=== PATIENT | male | born 1975 | race Caucasian/White ===

== ENCOUNTER → 2017-05-24 09:14 | Outpatient (CLI) | payer BC, SELFPAY ==
[2017-05-24 10:38] LABS: Microalbumin,Random Urine 12.4 mg/L (NO RANGE EST.); Microalbumin:Creatinine Ratio 7.9 mg/g CRE (<30 mg/g CRE)
[2017-05-24 11:07] LABS: Anion Gap 8 (5-15); BUN 11 mg/dL (7-18); BUN/Creat Ratio 16.9 RATIO (10-20); Calcium,Total 8.9 mg/dL (8.5-10.1); Chloride 101 mmol/L (98-107); Cholesterol 158 mg/dL (200); Creatinine, Serum 0.65 mg/dL (0.70-1.30); EST Glomerular Filtration Rate 144 mL/min (>60); Est Glom Filt Rate - Afr Amer 174 mL/min (>60); Glucose 154 mg/dL (74-106); High Density Lipoprotein 43 mg/dL; Potassium 3.9 mmol/L (3.5-5.1); Sodium Level 138 mmol/L (136-145); Thyroid Stim Hormone (TSH) 1.16 uIU/mL (0.358-3.74); Triglycerides 77 mg/dL; Very Low Density Lipoprotein 15 mg/dL (5-40)
== END ==
PROVIDERS: Family Provider Family Medicine; PCP Family Medicine; Visit Provider Family Medicine
DX: E11.9 Type 2 diabetes mellitus without complications (principal)
CPT/HCPCS: 36415; 80048; 80061; 82043; 82570; 84443

== ENCOUNTER → 2017-12-27 09:09 | Outpatient (CLI) | payer BC, SELFPAY ==
[2017-12-27 11:16] LABS: Microalbumin,Random Urine 12.8 mg/L (NO RANGE EST.); Microalbumin:Creatinine Ratio 8.1 mg/g CRE (<30 mg/g CRE)
[2017-12-27 11:21] LABS: AST(SGOT) 16 U/L (15-37); Alanine Aminotransfer ALT/SGPT 40 U/L (16-61); Albumin, Serum 3.9 g/dL (3.2-5.0); Alkaline Phosphatase 82 U/L (45-117); Anion Gap 9 (5-15); BUN 11 mg/dL (7-18); Bilirubin, Direct 0.11 mg/dL (0.00-0.30); Calcium,Total 8.7 mg/dL (8.5-10.1); Chloride 103 mmol/L (98-107); Cholesterol 182 mg/dL (200); Creatinine, Serum 0.73 mg/dL (0.70-1.30); EST Glomerular Filtration Rate 125 mL/min (>60); Est Glom Filt Rate - Afr Amer 151 mL/min (>60); Globulin 3.9 g/dL (2.2-4.2); Glucose 157 mg/dL (74-106); High Density Lipoprotein 42 mg/dL; Potassium 4.6 mmol/L (3.5-5.1); Protein, Total 7.8 g/dL (6.4-8.2); Sodium Level 139 mmol/L (136-145); Triglycerides 111 mg/dL; Very Low Density Lipoprotein 22 mg/dL (5-40)
== END ==
PROVIDERS: Family Provider Family Medicine; PCP Family Medicine; Visit Provider Family Medicine
DX: E11.9 Type 2 diabetes mellitus without complications (principal)
CPT/HCPCS: 36415; 80048; 80061; 80076; 82043; 82570

== ENCOUNTER 2018-06-27 09:18 | Day surgery (SDC) | payer OTHER, SELFPAY ==
[2018-06-23 09:13] VITALS: BMI 31.0
[2018-06-27 09:33] VITALS: BP 143/86; PULSE 88; RESP 18; TEMP 36.8; O2SAT 100; BMI 30.8
[2018-06-27 09:41] LABS: Bedside Glucose 173 mg/dL (70-110)
[2018-06-27 11:18] VITALS: BP 108/67; BP 143/96; PULSE 77; RESP 16; TEMP 36.1; O2SAT 96
--- NOTE | 2018-06-27 11:18 | OP.ENDO_ITS ---
06/27/2018 Catarino Sanchez MD [address] [id number] Re : Colonoscopy procedure for Benito Diaz Dear Dr. Sanchez This procedure was performed on Wednesday, June 27, 2018. My impressions and recommendations are as follows: Impressions : - The entire examined colon is normal on direct and retroflexion views. - No specimens collected. Recommendations : - Discharge patient to home. - Resume previous diet. - Continue present medications. - Repeat colonoscopy in 5 years for screening purposes. My findings are described in the full procedure note, which is enclosed. If I can be of further assistance, please feel free to contact me at Doctor phone number(s): , Work: . Sincerely, Markell Albert MD 06/27/2018 11:18:18 AM This report has been signed electronically.
[2018-06-27 11:25] VITALS: BP 114/78; BP 143/96; PULSE 78; RESP 16; O2SAT 97
[2018-06-27 11:30] VITALS: BP 118/76; BP 143/96; PULSE 75; RESP 16; O2SAT 98
[2018-06-27 11:32] VITALS: BP 117/83; BP 143/96; PULSE 74; RESP 16; TEMP 36.4; O2SAT 97
[2018-06-27 11:44] VITALS: BP 143/96
== END 2018-06-27 11:49 | disposition home or self-care (01) ==
LOC: EN 09:18 → AC 09:19
PROVIDERS: Family Provider Family Medicine; PCP Family Medicine; Referring Provider Surgery; Visit Provider Surgery
PROC: 0DJD8ZZ Inspection of Lower Intestinal Tract, Via Natural or Artificial Opening Endoscopic (ICD-10-PCS; CPT 45378; principal; 2018-06-27 10:25)
DX: Z80.0 Family history of malignant neoplasm of digestive organs (principal); E11.9 Type 2 diabetes mellitus without complications; F32.9 Major depressive disorder, single episode, unspecified; I10 Essential (primary) hypertension; K21.9 Gastro-esophageal reflux disease without esophagitis; Z79.899 Other long term (current) drug therapy; Z79.84 Long term (current) use of oral hypoglycemic drugs
CPT/HCPCS: 45378; 82962; J7120

== ENCOUNTER → 2019-08-21 15:30 | Outpatient (CLI) | payer OTHER, SELFPAY ==
[2019-08-21 18:14] LABS: Anion Gap 8 (5-15); BUN 11 mg/dL (7-18); Calcium,Total 9.1 mg/dL (8.5-10.1); Chloride 106 mmol/L (98-107); Cholesterol 189 mg/dL (200); Creatinine, Serum 0.79 mg/dL (0.70-1.30); EST Glomerular Filtration Rate 114 mL/min (>60); Est Glom Filt Rate - Afr Amer 138 mL/min (>60); Glucose 190 mg/dL (74-106); High Density Lipoprotein 38 mg/dL; Potassium 4.1 mmol/L (3.5-5.1); Sodium Level 141 mmol/L (136-145); Triglycerides 228 mg/dL; Very Low Density Lipoprotein 46 mg/dL (5-40)
== END ==
PROVIDERS: PCP Family Medicine; Referring Provider Family Medicine; Visit Provider Family Medicine
DX: E11.9 Type 2 diabetes mellitus without complications (principal)
CPT/HCPCS: 36415; 80048; 80061

== ENCOUNTER → 2020-02-24 16:57 | Outpatient (CLI) | payer OTHER, SELFPAY ==
[2019-10-06 13:57] VITALS: BMI 30.8
[2020-02-24 19:13] LABS: Anion Gap 7 (5-15); BUN 18 mg/dL (7-18); Calcium,Total 8.9 mg/dL (8.5-10.1); Chloride 102 mmol/L (98-107); Cholesterol 197 mg/dL (200); Creatinine, Serum 0.86 mg/dL (0.70-1.30); EST Glomerular Filtration Rate 103 mL/min (>60); Est Glom Filt Rate - Afr Amer 125 mL/min (>60); Glucose 165 mg/dL (74-106); High Density Lipoprotein 42 mg/dL; Potassium 3.7 mmol/L (3.5-5.1); Sodium Level 137 mmol/L (136-145); Triglycerides 175 mg/dL; Very Low Density Lipoprotein 35 mg/dL (5-40)
== END ==
PROVIDERS: PCP Family Medicine; Visit Provider Family Medicine
DX: E11.9 Type 2 diabetes mellitus without complications (principal)
CPT/HCPCS: 36415; 80048; 80061

== ENCOUNTER → 2020-08-25 16:12 | Outpatient (CLI) | payer OTHER, SELFPAY ==
[2019-10-06 13:57] VITALS: BMI 30.8
[2020-08-25 18:05] LABS: Anion Gap 8 (5-15); BUN 19 mg/dL (7-18); BUN/Creat Ratio 21.8 RATIO (10-20); Chloride 102 mmol/L (98-107); Cholesterol 136 mg/dL (200); Creatinine, Serum 0.87 mg/dL (0.70-1.30); EST Glomerular Filtration Rate 101 mL/min (>60); Est Glom Filt Rate - Afr Amer 123 mL/min (>60); Glucose 81 mg/dL (74-106); High Density Lipoprotein 42 mg/dL; Potassium 3.4 mmol/L (3.5-5.1); Sodium Level 138 mmol/L (136-145); Triglycerides 217 mg/dL; Very Low Density Lipoprotein 43 mg/dL (5-40)
== END ==
PROVIDERS: PCP Family Medicine; Referring Provider Family Medicine; Visit Provider Family Medicine
DX: E11.9 Type 2 diabetes mellitus without complications (principal)
CPT/HCPCS: 36415; 80048; 80061

== ENCOUNTER 2021-04-19 17:57 | Outpatient (CLI) | payer OTHER, SELFPAY | END 2021-04-19 23:59 | disposition short-term general hospital (02) | PROVIDERS: PCP Family Medicine; Visit Provider Family Medicine | DX: U07.1 COVID-19 (principal) | CPT/HCPCS: 87635; U0003; U0005 ==

== ENCOUNTER → 2021-09-01 | Outpatient (CLI) | payer BC, SELFPAY ==
--- NOTE | 2021-09-01 11:25 | RAD_ITS ---
EXAM: XR LEFT FOOT COMPLETE, 3 OR MORE VIEWS CLINICAL INDICATION: FOOT PAIN TECHNIQUE: Frontal, lateral and oblique views of the left foot. This report was created using [employer] report generation technology. COMPARISON: None. FINDINGS: BONES/JOINTS: There is a calcaneal spur. No acute fracture. No subluxation. Normal alignment. Preservation of the joint space. No sclerotic or destructive changes observed. SOFT TISSUES: Unremarkable. No soft tissue swelling or gas. No radiopaque foreign body. VASCULATURE: There are atherosclerotic vascular calcifications. RAD/Foot min 3 Views IMPRESSION: There is a calcaneal spur. Electronically Signed: Dmitriy Figueroa MD at 15:37 EDT ,
== END | disposition home or self-care (01) ==
LOC: MTLAB 11:23
PROVIDERS: PCP Family Medicine; Referring Provider Family Medicine; Visit Provider Family Medicine
DX: M77.32 Calcaneal spur, left foot (principal)
CPT/HCPCS: 73630

== ENCOUNTER → 2022-06-29 | Outpatient (CLI) | payer BC, SELFPAY ==
[2022-06-29 10:35] LABS: Anion Gap 10 (5-15); BUN 22 mg/dL (7-18); BUN/Creat Ratio 25.6 RATIO (10-20); Calcium,Total 9.9 mg/dL (8.5-10.1); Chloride 102 mmol/L (98-107); Cholesterol 231 mg/dL (200); Creatinine, Serum 0.86 mg/dL (0.70-1.30); EST Glomerular Filtration Rate 102 mL/min (>60); Est Glom Filt Rate - Afr Amer 124 mL/min (>60); Glucose 240 mg/dL (74-106); High Density Lipoprotein 40 mg/dL; Potassium 4.4 mmol/L (3.5-5.1); Sodium Level 137 mmol/L (136-145); Triglycerides 238 mg/dL; Very Low Density Lipoprotein 48 mg/dL (5-40)
== END | disposition home or self-care (01) ==
LOC: MFPLAB 08:33
PROVIDERS: PCP Family Medicine; Referring Provider Family Medicine; Visit Provider Family Medicine
DX: E11.9 Type 2 diabetes mellitus without complications (principal)
CPT/HCPCS: 36415; 80048; 80061

== ENCOUNTER → 2022-11-09 | Outpatient (CLI) | payer BC, SELFPAY ==
[2022-11-09 10:37] LABS: Anion Gap 7 (5-15); BUN 19 mg/dL (7-18); BUN/Creat Ratio 23.9 RATIO (10-20); Chloride 108 mmol/L (98-107); Cholesterol 117 mg/dL (200); EST Glomerular Filtration Rate 111 mL/min (>60); Est Glom Filt Rate - Afr Amer 135 mL/min (>60); Glucose 83 mg/dL (74-106); High Density Lipoprotein 42 mg/dL; Potassium 3.7 mmol/L (3.5-5.1); Sodium Level 141 mmol/L (136-145); Triglycerides 123 mg/dL; Very Low Density Lipoprotein 25 mg/dL (5-40)
[2022-11-09 10:38] LABS: Microalbumin,Random Urine 10.9 mg/L (NO RANGE EST.); Microalbumin:Creatinine Ratio 9.2 mg/g CRE (<30 mg/g CRE)
== END | disposition home or self-care (01) ==
LOC: MFPLAB 08:39
PROVIDERS: PCP Family Medicine; Visit Provider Family Medicine
DX: E11.9 Type 2 diabetes mellitus without complications (principal)
CPT/HCPCS: 36415; 80048; 80061; 82043; 82570

== ENCOUNTER → 2023-05-31 | Outpatient (CLI) | payer BC, SELFPAY ==
[2023-05-31 10:35] LABS: Microalbumin,Random Urine 7.6 mg/L (NO RANGE EST.); Microalbumin:Creatinine Ratio 9.6 mg/g CRE (<30 mg/g CRE)
[2023-05-31 10:51] LABS: AST(SGOT) 20 U/L (15-37); Alanine Aminotransfer ALT/SGPT 32 U/L (16-61); Albumin, Serum 3.9 g/dL (3.2-5.0); Alkaline Phosphatase 75 U/L (45-117); Anion Gap 6 (5-15); BUN 20 mg/dL (7-18); BUN/Creat Ratio 23.5 RATIO (10-20); Chloride 108 mmol/L (98-107); Cholesterol 115 mg/dL (200); Creatinine, Serum 0.85 mg/dL (0.70-1.30); EST Glomerular Filtration Rate 103 mL/min (>60); Est Glom Filt Rate - Afr Amer 124 mL/min (>60); Globulin 3.8 g/dL (2.2-4.2); Glucose 135 mg/dL (74-106); High Density Lipoprotein 41 mg/dL; Potassium 4.2 mmol/L (3.5-5.1); Protein, Total 7.7 g/dL (6.4-8.2); Sodium Level 140 mmol/L (136-145); Triglycerides 85 mg/dL; Very Low Density Lipoprotein 17 mg/dL (5-40)
== END | disposition home or self-care (01) ==
LOC: MFPLAB 08:53
PROVIDERS: PCP Family Medicine; Visit Provider Family Medicine
DX: E11.9 Type 2 diabetes mellitus without complications (principal)
CPT/HCPCS: 36415; 80053; 80061; 82043; 82570

== ENCOUNTER → 2023-10-04 | Outpatient (CLI) | payer BC, SELFPAY ==
--- NOTE | 2023-10-04 12:36 | RAD_ITS ---
STUDY: X-RAY - LUMBAR SPINE REASON FOR EXAM: Male, 48 years old. SCIATICA TECHNIQUE: 4 view(s) of the lumbar spine were obtained. COMPARISON: None FINDINGS: Normal lumbar lordosis. Mild S-shaped scoliosis with dextroscoliosis of the thoracolumbar spine and levoscoliosis of the lower lumbar spine. There is a normal alignment of the vertebrae. There is multilevel endplate spondylosis of the lumbar vertebrae. There is multi-level degenerative disc disease with multi-level disc space narrowing. There is multilevel facet hypertrophy in the lower lumbar spine. The soft tissue structures are unremarkable. RAD/L/S Spine Min 4 Views IMPRESSION: Mild S-shaped scoliosis with degenerative disc disease. MRI may be useful. Electronically Signed: Adan Mays MD at 18:40 EDT ,
== END | disposition home or self-care (01) ==
LOC: MTRAD 12:35
PROVIDERS: PCP Family Medicine; Referring Provider Family Medicine; Visit Provider Family Medicine
DX: M54.30 Sciatica, unspecified side (principal)
CPT/HCPCS: 72110

== ENCOUNTER 2023-10-11 10:38 | Inpatient (IN) | payer BC, SELFPAY ==
[2023-10-11] VITALS (22 sets, daily range): BP systolic 86–128; BP diastolic 57–81; PULSE 105–115; RESP 18–46; TEMP 36.5–36.6; O2SAT 91–98; BMI 33.6; BMI 31.7
--- NOTE | 2023-10-11 11:02 | EKG12_ITS ---
Test Reason : SWELLING Blood Pressure : / mmHG Vent. Rate : 109 BPM Atrial Rate : 109 BPM P-R Int : 132 ms QRS Dur : 076 ms QT Int : 350 ms P-R-T Axes : 033 028 -02 degrees QTc Int : 471 ms Sinus tachycardia Cannot rule out Inferior infarct , age undetermined Abnormal ECG Confirmed by DARIO GUAJARDO, PEPE ([id number]), pictures editor DEANN ROSE ([id number]) on 10/14/2023 11:16:18 AM Referred By: Confirmed By:PEPE BISHOP MD
--- NOTE | 2023-10-11 11:04 | EX.ED.DYSGE1 ---
HPI History of Present Illness Chief Complaint: Lower Extremity Injury Informant: patient and spouse/S.O. Narrative Narrative: Patient presents with spouse and daughter secondary multiple complaints. He injured his back on September 26 after lifting a large case of water. He was seen at an urgent care and given a prescription for muscle relaxers. He was significantly improved. Approximately one week later, he got out of a [place] at a restaurant and had sudden back pain. He was seen by his primary care physician who put him on steroids and muscle relaxers along with pain medicine. Patient has continued back pain with some balance problems since that time. He has been seen at an emergency room in [place] twice in the past 7 to 10 days and treated for pain, but no labs or further work-up was obtained. On arrival to emergency room, patient's blood pressure is 86/60 with a heart rate of 115. He is tachypneic. He is a diabetic, but his meter has been reading blood sugars in the 200 range. He does report increase thirst and increased urination. Family is concerned about electrolyte abnormalities and dehydration. Patient denies urinary incontinence. [facility] Medical History Diarrhea Nausea & vomiting Abdominal pain Depression Family history of colon cancer GERD (gastroesophageal reflux disease) Diabetes HTN (hypertension) Home Medications ?Medication ?Instructions ?Recorded ?Last Taken ?Type fluoxetine 40 mg capsule 40 mg PO DAILY 06/23/18 Unknown History glimepiride 4 mg tablet 4 mg PO QAM 06/23/18 Unknown History lisinopril 5 mg tablet 5 mg PO QHS KIDNEYS 06/23/18 Unknown History metformin 1,000 mg tablet 1,000 mg PO BID 06/23/18 Unknown History insulin glargine 100 unit/mL (3 40 unit subcut QHS DIABETES 10/06/19 Unknown History mL) subcutaneous pen meloxicam 15 mg tablet 15 mg PO DAILY PRN 10/06/19 Unknown History omeprazole 20 mg capsule,delayed 20 mg PO DAILY 10/06/19 Unknown History release ranitidine HCl 150 mg tablet (Acid 150 mg PO DAILY GERD 10/06/19 Unknown History Control (ranitidine)) Allergy/AdvReac Type Severity Reaction Status Date / Time No Known Allergies Allergy Verified 10/11/23 10:41 Family History Brother Colon cancer Mother Hypertension Surgical History No history of previous surgery Social History Smoking Status: Never smoker alcohol intake: never substance use type: does not use ROS ROS ED Constitutional Constitutional ED: Denies chills or fever(s) Eyes Eyes: Denies discharge from eye(s) ENT ENT ED: Denies discharge from eye(s), rhinorrhea or sore throat Cardiovascular Cardiovascular: Denies chest pain or palpitations Respiratory/Chest Respiratory/Chest: Denies cough or dyspnea Gastrointestinal Gastrointestinal: Reports abdominal pain; Denies diarrhea, nausea or vomiting Genitourinary Genitourinary ED: Reports urinary frequency; Denies dysuria Musculoskeletal Musculoskeletal: Reports back pain and extremity pain Integumentary Denies Abrasions or rash Neurologic Neurologic: Reports paresthesias and weakness; Denies headache(s) Psychiatric Psychiatric: Denies anxiety or depression Allergic/Immunologic Allergic/Immunologic ED: Denies lip swelling or urticaria EXAM Physical Exam Const Vital Signs: 10/11/23 10:39 10/11/23 10:41 10/11/23 10:51 Temperature 97.8 F 97.8 F Temperature Source Temporal Oral Pulse Rate 115 H 111 H Respiratory Rate 18 36 H Respiratory Effort Short of Breath Respiratory Pattern Tachypnea Blood Pressure 86/63 L 110/68 Blood Pressure Mean 70 82 Pulse Ox 96 92 Oxygen Delivery Method Room Air Room Air 10/11/23 11:41 10/11/23 12:38 10/11/23 13:57 Temperature 97.9 F 97.9 F Temperature Source Oral Oral Pulse Rate 106 H 105 H 105 H Respiratory Rate 43 H 32 H 24 H Respiratory Effort Respiratory Pattern Blood Pressure 116/68 106/65 111/65 Blood Pressure Mean 84 78 80 Pulse Ox 94 92 92 Oxygen Delivery Method Room Air Room Air Room Air Positive well nourished and well developed General Appearance ED: well developed HEENT Reports dry mucous membranes Mouth ED: Yes dry mucous membranes Mouth: dry mucous membranes Eyes EOMs intact bilaterally Chest Wall inspection of chest normal and palpation of chest normal Resp Resp Narrative: Tachypnea. Lungs grossly clear. Cardio Rate: tachycardic GI non-tender Palpation: soft Extremity Extremity Narrative: 1+ bilateral lower extremity edema. 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 IV line initiated and patient given IV fluid bolus. Labwork obtained to evaluate for anemia, electrolyte abnormalities, renal failure, hyperglyemia, and DKA. CT flank will be obtained given patient's recent back pain. History & Record Review Discussion w/independent historian: Patient and Significant other Additional record(s) reviewed:: Prior labs Lab Data Attestation: I reviewed the patient's lab results. Labs: Laboratory Results - last 24 hr 10/11/23 10/11/23 10/11/23 11:10 11:14 13:10 WBC 17.7 H RBC 4.58 L Hgb 13.4 Hct 39.9 L MCV 87.1 MCH 29.3 MCHC 33.6 RDW Std Deviation 41.6 RDW Coeff of Hermila 13.2 Plt Count 77 L MPV 12.7 H Immature Gran % (Auto) ED [employer] EDUCATION TEACHER Neut % (Auto) ED SPECIAL EDUCATION TEACHER Lymph % (Auto) ED SPECIAL EDUCATION TEACHER [place] % (Auto) ED SPECIAL EDUCATION TEACHER Eos % (Auto) ED SPECIAL EDUCATION TEACHER Baso % (Auto) ED SPECIAL EDUCATION TEACHER Absolute Neuts (auto) 16.1 H Absolute Lymphs (auto) 0.41 L Total Counted 100 Neutrophils % (Manual) 92 H Band Neutrophils % 5 Lymphocytes % (Manual) 2 L Myelocytes % 1 H Nucleated RBC % 0 Diff Path Review May foll Platelet Estimate MKD DEC Plt Morphology Comment LARGE Sodium 131 L Potassium 4.7 Chloride 93 L Carbon Dioxide 23.0 Anion Gap 15 BUN 52 H Creatinine 1.79 H Estim Creat Clear Calc 56.70 Est GFR (MDRD) Af Amer 53 L Est GFR (MDRD) Non-Af 44 L BUN/Creatinine Ratio 29.1 H Glucose 283 H Lactic Acid 4.8 H* Calcium 8.4 L Total Bilirubin 6.10 H Direct Bilirubin 5.22 H AST 71 H ALT 60 Alkaline Phosphatase 230 H Total Protein 7.2 Albumin 1.7 L Globulin 5.5 H Urine Color Urine Clarity Urine pH Ur Specific [place] Urine Protein Urine Glucose (UA) Urine Ketones Urine Occult Blood Urine Nitrite Urine Bilirubin Urine Urobilinogen Ur Leukocyte Esterase Urine RBC Urine WBC Ur Squamous Epith Cells Ur Transition Epith Cell Ur Renal Epithelial Cell Urine Bacteria Urine Mucus Acetone Level NEGATIVE POC Glucose 303 H 07/19/24 13:30 WBC RBC Hgb Hct MCV MCH MCHC RDW Std Deviation RDW Coeff of Hermila Plt Count MPV Immature Gran % (Auto) Neut % (Auto) Lymph % (Auto) [place] % (Auto) Eos % (Auto) Baso % (Auto) Absolute Neuts (auto) Absolute Lymphs (auto) Total Counted Neutrophils % (Manual) Band Neutrophils % Lymphocytes % (Manual) Myelocytes % Nucleated RBC % Diff Path Review Platelet Estimate Plt Morphology Comment Sodium Potassium Chloride Carbon Dioxide Anion Gap BUN Creatinine Estim Creat Clear Calc Est GFR (MDRD) Af Amer Est GFR (MDRD) Non-Af BUN/Creatinine Ratio Glucose Lactic Acid Calcium Total Bilirubin Direct Bilirubin AST ALT Alkaline Phosphatase Total Protein Albumin Globulin Urine Color Cee Urine Clarity Turbid Urine pH 6.0 Ur Specific [place] 1.015 Urine Protein 30 H Urine Glucose (UA) 1000 H Urine Ketones 5 H Urine Occult Blood 250 H Urine Nitrite Negative Urine Bilirubin 1 H Urine Urobilinogen 4 H Ur Leukocyte Esterase 500 H Urine RBC 25-50 SEEN Urine WBC >100 SEEN Ur Squamous Epith Cells 0 SEEN Ur Transition Epith Cell 0-5 SEEN Ur Renal Epithelial Cell 0-5 SEEN Urine Bacteria 4+ Urine Mucus 0 SEEN Acetone Level POC Glucose ABG Data ABG results: ABG 10/11/23 13:20 Specimen Type EBEN Sample Site Not entered VBG pH 7.45 H VBG pO2 48 H VBG HCO3 23 VBG Total CO2 24 VBG O2 Sat (Calc) 86 H VBG Base Excess -1 POC Mix VBG pCO2 Pt Tmp 32.1 L O2 Delivery Device Not entered Radiography Diagnostic Testing: Clinical Impression(s) from Imaging Studies Abdomen/Pelvis CT 10/11/23 11:20 IMPRESSION: Small gallstones are seen in the dependent portion of the gallbladder lumen. Mild splenomegaly. Electronically Signed: Jason Dangelo MD at 11:53 EDT , Gallbladder Ultrasound 10/11/23 12:12 IMPRESSION: Multiple gallstones. Mild hepatomegaly. Mild thickening of the gallbladder wall. Electronically Signed: Jason Dangelo MD at 13:21 EDT , EKG Initial EKG: Attestation: I personally reviewed and interpreted this EKG as follows: Interpretation: Sinus Tachycardia (Sinus tachycardia at 109. No obvious acute ischemia.) Treatment and Re-Evaluation :: CBC reveals a white blood cell count of 17.7 with a hemoglobin of 13.4. 92% neutrophils with five bands noted. Chemistry studies reveal sodium of 131 and a glucose of 283. Potassium is normal at 4.7. Anion gap is normal at 15. BUN is 52 and is 1.79. Prior creatinine on May 30 was a 0.85. LFTs significant for a total bilirubin of 6.10, direct bilirubin of 5.22, AST of 71. Patient had normal bilirubin value in May. Alk phos is elevated at 230. Lactic acid is elevated at 4.8. Serum acetone is negative. Urinalysis reveals 25 to 50 red blood cells with 100 white cells. 4+ bacteria noted. EKG reveals sinus tachycardia at 109 with no obvious acute ischemia. CT scan of the abdomen reveals small gallstones in the dependent portion of the gallbladder. Mild splenomegaly noted. Given the patients abnormal LFTs, a gallbladder ultrasound is also obtained. Multiple gallstones are noted with mild hepatomegaly. Mild thickening of the gallbladder wall is noted. I spoke with Dr Huang who reviewed the patient's images. No obvious GB distension or obvious stone in the duct. On repeat exam, patient has no tenderness to palpation to the right upper extremity. Patient has received IVF and additional NS bolus is ordered. Blood and urine cultures ordered. Venous blood gas reveals normal pH at 7.45. I believe his lactic acid is so elevated because of his dehydration, renal insufficiency, and use of Metformin. Patient has been ordered Zosyn. I will speak with hospitalist regarding admission for further treatment. If patient's renal function improves tomorrow but LFTs remain elevated, Dr Huang recommended repeating his CT scan with IV contrast. Discharge Plan Triage Chief Complaint: Lower Extremity Injury ED Provider: Miesha Padilla Dx/Rx/DC Orders Clinical Impression: Dehydration, Acute kidney injury, Abnormal bilirubin test, UTI (urinary tract infection), Sepsis Prescriptions: No Action metformin 1,000 mg tablet 1,000 mg PO BID fluoxetine 40 mg capsule 40 mg PO DAILY glimepiride 4 mg tablet 4 mg PO QAM lisinopril 5 mg tablet 5 mg PO QHS ranitidine HCl [Acid Control (ranitidine)] 150 mg tablet 150 mg PO DAILY meloxicam 15 mg tablet 15 mg PO DAILY PRN omeprazole 20 mg capsule,delayed release(DR/EC) 20 mg PO DAILY insulin glargine 100 unit/mL (3 mL) insulin pen 40 unit subcut QHS Primary Care Provider: Catarino Sanchez Referrals: Catarino Sanchez MD [Primary Care Provider] - Print Language: Kosovan Disposition Disposition: Acute Care Hospital [facility]
--- NOTE | 2023-10-11 11:11 | NURSING ---
NO OLD EKGS
[2023-10-11] MEDS: 0.9% Normal Saline (1000mL) 1,000 ML 1000 ML IV (11:15)
--- NOTE | 2023-10-11 11:20 | CT_ITS ---
STUDY: CT ABDOMEN AND PELVIS WITHOUT CONTRAST REASON FOR EXAM: Male, 48 years old. Back pain RADIATION DOSAGE (If Supplied By Facility): CTDIvol = ( 16.16 ) mGy, DLP = ( 953.06 ) mGycm TECHNIQUE: Transaxial images were obtained from the dome of the diaphragm to the symphysis pubis without oral contrast, and without intravenous contrast. Sagittal and coronal images were reconstructed. Individualized dose optimization techniques were used for this CT. COMPARISON: None. FINDINGS: The visualized lung bases are unremarkable. The visualized portions of the heart are within normal limits. Normal liver. Small gallstones are seen in the dependent portion of the gallbladder lumen. Mild splenomegaly. Normal pancreas. Normal bilateral adrenal glands. Normal right kidney. Normal left kidney. There is a small hiatal hernia. Normal small intestine. Normal colon. The appendix is visualized and appears normal. Normal abdominal aorta. Normal inferior vena cava. Normal retroperitoneum. Normal urinary bladder. Calcification of the vas deferens. Normal abdominal wall. A marked degree of disc space narrowing and subchondral sclerosis at the L3-L4, L4-L5 and L5-S1 levels. Straightening of the normal lumbar lordosis. CT/Abdomen/Pelvis without Cont IMPRESSION: Small gallstones are seen in the dependent portion of the gallbladder lumen. Mild splenomegaly. Electronically Signed: Jason Dangelo MD at 11:53 EDT ,
[2023-10-11 11:25] LABS: Absolute Lymphocyte Count 0.41 X10^3/uL (0.83-4.51); Absolute Neutrophil Count 16.1 X10^3/uL (2.0-7.7); Basophil# 0.01 X10^3/uL; Eosinophil# 0.01 X10^3/uL; Hematocrit 39.9 % (40-54); Hemoglobin 13.4 g/dL (13.0-16.5); Lymphocyte # 0.41 X10^3/ul (0.83-4.51); Mean Corp Hgb Conc 33.6 g/dL (32-36); Mean Corpuscular Hgb 29.3 pg (27.0-32.0); Mean Corpuscular Volume 87.1 fL (80-94); Mean Platelet Vol. 12.7 fl (6.2-12.0); NRBC Flagged by Analyzer 0 % (0-5); Neutrophil # 16.07 X10^3/uL (2.7-7.7); POSITIVE COUNT YES; POSITIVE DIFFERENTIAL YES; POSITIVE MORPHOLOGY YES; Platelet Count 77 K/mm3 (150-450); RBC Distribution Width CV 13.2 % (11.6-14.6); RBC Distribution Width SD 41.6 fl (35.1-43.9); Red Blood Count 4.58 M/mm3 (4.6-6.2); White Blood Count 17.7 K/mm3 (4.4-11.0)
[2023-10-11 11:34] LABS: Bedside Glucose 303 mg/dL (74-106)
[2023-10-11 11:38] LABS: AST(SGOT) 71 U/L (15-37); Alanine Aminotransfer ALT/SGPT 60 U/L (16-61); Albumin, Serum 1.7 g/dL (3.2-5.0); Alkaline Phosphatase 230 U/L (45-117); Anion Gap 15 (5-15); BUN 52 mg/dL (7-18); BUN/Creat Ratio 29.1 RATIO (10-20); Bilirubin, Direct 5.22 mg/dL (0.00-0.30); Calcium,Total 8.4 mg/dL (8.5-10.1); Chloride 93 mmol/L (98-107); Creatinine, Serum 1.79 mg/dL (0.70-1.30); EST Glomerular Filtration Rate 44 mL/min (>60); Est Glom Filt Rate - Afr Amer 53 mL/min (>60); Globulin 5.5 g/dL (2.2-4.2); Glucose 283 mg/dL (74-106); Potassium 4.7 mmol/L (3.5-5.1); Protein, Total 7.2 g/dL (6.4-8.2); Sodium Level 131 mmol/L (136-145)
[2023-10-11] MEDS: 0.9% Normal Saline (1000mL) 1,000 ML 150 ML IV ×2 (12:01→15:01)
[2023-10-11 12:05] LABS: Lymphocyte 2 % (19-41); Myelocyte 1 % (0-0); Neutrophil-Band 5 % (0-5); Neutrophil-Segmented 92 % (47-70); Total Cells Counted 100 (MANUAL DIFF)
[2023-10-11 12:06] LABS: Platelet Estimate MKD DEC (ADEQ); Platelet Morphology LARGE
[2023-10-11 12:07] LABS: Differential Indicated SCAN CRITERIA MET
[2023-10-11 12:08] LABS: Scan Smear per Review Criteria MANUAL DIFF
--- NOTE | 2023-10-11 12:12 | US_ITS ---
STUDY: ABDOMINAL ULTRASOUND - RIGHT UPPER QUADRANT REASON FOR VISIT: Male, 48 years [address] Gall[address] on [address] . Back pain. TECHNIQUE: Ultrasound evaluation of the right upper quadrant was performed with real-time and static taylor-scale imaging. TECHNICAL QUALITY: Adequate. COMPARISON: Comparison is made with prior CT scan of the abdomen and pelvis done earlier in the day. FINDINGS: Liver: The liver is mildly enlarged and measures 18.4 cm. There is normal echogenicity of the liver. The bile ducts are within normal limits. There is hepatic color flow. The direction of portal flow is hepatopetal. There is no demonstrated mass lesion. Gallbladder: Normal distended gallbladder. The gallbladder wall is slightly thickened and measures 4.2 mm. There is a negative sonographic Nogueira''s sign. There is no pericholecystic fluid. There are multiple echogenic structures within the gallbladder, consistent with multiple gallstones. Common Bile Duct (C.B.D.): The common bile duct measures 2.7 mm. Pancreas: Normal size of the head of the pancreas. The body and tail portions are obscured due to overlying bowel gas. There is normal echogenicity of the pancreas. There is no demonstrated pancreatic mass or cyst. Right Kidney: Normal size of the right kidney. The right kidney measures 11.5 cm x 6.2 cm x 6.2 cm. Normal renal cortex. The right cortex measures 1.8 cm. There is no demonstrated renal mass or cyst. There is no right hydronephrosis. US/Gallbladder IMPRESSION: Multiple gallstones. Mild hepatomegaly. Mild thickening of the gallbladder wall. Electronically Signed: Jason Dangelo MD at 13:21 EDT ,
[2023-10-11 13:24] LABS: Blood Gas Specimen Type VEN; O2 Delivery Device Not entered; SITE Not entered; VBG BASE EXCESS -1 mmol/L (-1.0-3.5); VBG Bicarbonate 23 mmol/L (22-26); VBG PO2 48 mmHg (25-40); VBG SO2 86 % (50-70); VBG TCO2 24 mmol/L (23-33); VBG pCO2 32.1 mmHg (41-51); VBG pH 7.45 (7.32-7.42)
[2023-10-11 13:37] LABS: Mucous, Urine 0 SEEN /hpf (<or=2+); Squamous Epithelial Cells - UA 0 SEEN /hpf (0-5)
[2023-10-11 13:40] LABS: Color, Urine Amber (Yellow); Glucose, Dipstick 1000 mg/dl (Normal); Ketone-Dipstick 5 mg/dl (Negative); Leukocyte Esterase-Dipstick 500 /ul (Negative); Nitrite-Dipstick Negative (Negative); Occult Blood-Urine 250 /ul (Negative); Protein-Dipstick 30 mg/dl (Negative); Specific Gravity, Urine 1.015 (1.002-1.030); Urine Clarity Turbid (Clear); Urine Urobilinogen 4 mg/dl (Normal)
[2023-10-11 13:45] LABS: Lactic Acid 4.8 mmol/L (0.4-1.9)
[2023-10-11 13:49] LABS: Urine Bilirubin Dipstick 1 mg/dL (Negative)
[2023-10-11 13:51] LABS: Bacteria 4+ /hpf (None Seen); Red Blood Cells-Urine 25-50 SEEN /hpf (0-5); Renal Epithelial Cells 0-5 SEEN /hpf (0-5); White Blood Cells >100 SEEN /hpf (0-5)
[2023-10-11 13:55] LABS: Transitional Epithelial - Ur 0-5 SEEN /hpf (0-5)
[2023-10-11] MEDS: Piperacil/Tazobactam 3.375 GM in 0.9% Normal Saline (50mL MB+) 50 ML IV ×2 (14:09→21:02)
[2023-10-11] MEDS: 0.9% Normal Saline (1000mL) 1,000 ML 999 ML IV (14:11)
--- NOTE | 2023-10-11 15:19 | HP.PCM.HOS_ITS ---
HPI - General General Date of Admission: 10/11/23 Date of Service: 10/11/23 Chief Complaint: Back Pain HPI Narrative SHIV CADET, is a 48 M who presented to the emergency department at [facility] on 10/11/2023 with multiple complaints. On September 27, 2023 he was lifting a large case of water at which time he had a injury to his back. He was seen at an urgent care and given a prescription for muscle relaxants and had significant improvement in his symptoms however approximately 1 week later he got out of a [place] at a restaurant and had sudden back pain. He was seen by his primary care physician who put him on steroids and muscle relaxants along with pain medication. He has continued to have back pain with some back problems since that point in time. He was seen in an emergency department in [place] twice in the past 7 to 10 days and treated for pain but no further workup was obtained. He states his back pain has been an ongoing issue however in the last 48 hours he developed diffuse bodyaches, nausea and vomiting, skin hypersensitivity, and redness and swelling in his right and left hands as well as swelling in his right elbow. He has had no dysuria but does have some frequency but also complains of general weakness and fatigue. Vital signs on presentation demonstrated a temperature of 97.8, heart rate was 115, respiratory rate was 18, blood pressure was 86/63 and pulse ox was 96% on room air. CBC demonstrated a significant leukocytosis with a white count of 17.5 and a significant left shift with 92% neutrophilia. His platelet count is also low at 77,000. Coags were slightly abnormal with a PT of 16.8, INR 1.4 PTT 35.2. ABG was obtained and he is alkalotic with a pH of 7.54 and his blown his pCO2 down to 23.3 with his tachypnea. pCO2 was 69 with a oxygenation saturation of 96%. His chemistry panel showed hyponatremia with a sodium of 131, BUN of 52 with a serum creatinine of 1.79 (baseline serum creatinine between 0.7 and 0.9). Blood sugars are markedly elevated at 283. His lactic acid was 4.8 with a total bilirubin of 6.1 and a direct bilirubin of 5.2. Alk phos was slightly elevated at 230 and AST was slightly elevated at 71. His urine shows dehydration with a specific gravity of 1.015 and is consistent with infection having a positive leuk esterase, greater than 100 white cells per high-powered field and 4+ bacteria. Tylenol level was less than 2 and acetone level was negative. With his abnormal bilirubin a CT of his abdomen pelvis was obtained and showed small close are not in the dependent portion of the gallbladder lumen and mild splenomegaly. Gallbladder ultrasound showed multiple gallstones and mild hepatomegaly with thickening of the wall of the gallbladder that is mild. Chest x-ray showed no active pulmonary disease. On exam he had significant erythema of his right elbow, right hand and left hand first knuckle was erythematous and tender so imaging was ordered and pending. He was treated per sepsis protocol with 30 cc/kg ideal body weight in the emergency department and received a total of 3 L which his blood pressure seems to be more responsive with his most recent blood pressure being 111/65. Antibiotics were given after cultures were obtained and he will be admitted to the ICU. [facility] Medical History Family history of colon cancer requiring screening colonoscopy Diarrhea Nausea & vomiting Abdominal pain Depression Family history of colon cancer GERD (gastroesophageal reflux disease) Diabetes HTN (hypertension) Home Medications ?Medication ?Instructions ?Recorded ?Last Taken ?Type fluoxetine 40 mg capsule 40 mg PO DAILY 06/23/18 10/11/23 History glimepiride 4 mg tablet 4 mg PO BID 06/23/18 10/11/23 History lisinopril 5 mg tablet 5 mg PO QHS KIDNEYS 06/23/18 10/10/23 History metformin 1,000 mg tablet 1,000 mg PO BID 06/23/18 10/11/23 History insulin glargine 100 unit/mL (3 40 unit subcut QHS DIABETES 10/06/19 10/11/23 History mL) subcutaneous pen meloxicam 15 mg tablet 15 mg PO DAILY PRN pain 10/06/19 Unknown History omeprazole 20 mg capsule,delayed 20 mg PO DAILY 10/06/19 10/11/23 History release cyclobenzaprine 10 mg tablet 10 mg PO TID 10/11/23 Unknown History empagliflozin 25 mg tablet 25 mg PO DAILY 10/11/23 10/11/23 History (Jardiance) fluoxetine 20 mg capsule 20 mg PO DAILY 10/11/23 10/11/23 History gabapentin 300 mg capsule 300 mg PO QHS 10/11/23 10/10/23 History insulin lispro 100 unit/mL 10 unit subcut TID 10/11/23 10/11/23 History subcutaneous pen (Humalog KwikPen (U-100) Insulin) ketorolac 10 mg tablet 10 mg PO TID 10/11/23 10/11/23 History rosuvastatin 5 mg tablet 5 mg PO DAILY 10/11/23 10/11/23 History Allergy/AdvReac Type Severity Reaction Status Date / Time No Known Allergies Allergy Verified 10/11/23 10:41 Family History Brother Colon cancer Mother Hypertension Surgical History No history of previous surgery Social History (Updated 10/11/23 @ 17:[address] Ashley Coles DO) household members: family housing: house Smoking Status: Never smoker alcohol intake: never substance use type: does not use ROS Constitutional Constitutional: Reports anorexia, chills, fatigue, malaise and weakness; Denies change in weight, fever(s), night sweats or other Eyes Eyes: Denies blurry vision, change in eye color, change in vision, discharge from eye(s), double vision, erythema, eye pain, loss of vision or other ENT HEENT: Denies abnormal hearing, dysphagia, ear pain, epistaxis, headache(s), hearing loss, nasal congestion, nasal discharge, post nasal drip, sinus pressure, sore throat or other Cardiovascular Cardiovascular: Denies chest pain, claudication, dyspnea on exertion, edema, lightheadedness, orthopnea, palpitations, paroxysmal nocturnal dyspnea, rapid heart rate, syncope or other Respiratory/Chest Respiratory/Chest: Denies cough, dyspnea, excessive phlegm production, hemoptysis, productive cough, shortness of breath at rest, shortness of breath with exertion, wheezing or other Gastrointestinal Gastrointestinal: Reports abdominal pain, nausea and vomiting; Denies coffee ground emesis, constipation, diarrhea, dyspepsia, hematemesis, hematochezia, loose stools, melena or other Genitourinary Genitourinary: Reports urinary frequency; Denies burning urination, difficulty urinating, dysuria, hematuria, nocturia, urinary hesitancy, urinary incontinence, urinary urgency or other Musculoskeletal Musculoskeletal: Reports arthralgias, back pain, joint pain, joint stiffness, joint swelling and myalgias; Denies neck pain or other Neurologic Neurologic: Reports abnormal gait Psychiatric Psychiatric: Denies anxiety, depression, homicidal ideation, suicidal ideation or other Endocrine Endocrinology: Denies change in body appearance, cold intolerance, excessive sweating, heat intolerance, polydipsia, polyuria or other Hematologic/Lymphatic Hematologic/Lymphatic: Denies anemia, easy bleeding, easy bruising, lymphadenopathy or other Allergic/Immunologic Allergic/Immunologic: Denies rhinitis, hives, eczemia, asthma or other Vital Signs Vital Signs Vital Signs: 10/11/23 10:39 10/11/23 10:41 10/11/23 10:51 Temperature 97.8 F 97.8 F Temperature Source Temporal Oral Pulse Rate 115 H 111 H Respiratory Rate 18 36 H Respiratory Effort Short of Breath Respiratory Pattern Tachypnea Blood Pressure 86/63 L 110/68 Blood Pressure Mean 70 82 Pulse Ox 96 92 Oxygen Delivery Method Room Air Room Air 10/11/23 11:41 10/11/23 12:38 10/11/23 13:57 Temperature 97.9 F 97.9 F Temperature Source Oral Oral Pulse Rate 106 H 105 H 105 H Respiratory Rate 43 H 32 H 24 H Respiratory Effort Respiratory Pattern Blood Pressure 116/68 106/65 111/65 Blood Pressure Mean 84 78 80 Pulse Ox 94 92 92 Oxygen Delivery Method Room Air Room Air Room Air 10/11/23 14:59 Temperature 97.7 F L Temperature Source Oral Pulse Rate 105 H Respiratory Rate 41 H Respiratory Effort Respiratory Pattern Blood Pressure 104/72 Blood Pressure Mean 82 Pulse Ox 93 Oxygen Delivery Method Room Air Weight Weight: 97.3 kg Body Mass Index (BMI) 33.6 Physical Exam Const alert, oriented x3 and well nourished; Negative for no apparent distress, average body habitus or healthy appearing Constitutional Narrative: Obese, toxic appearing, middle-aged, white male, sitting up in bed, appears markedly dehydrated, family at bedside, appears mildly uncomfortable due to generalized pain General Appearance: cooperative HEENT normocephalic, head/scalp atraumatic and hearing grossly normal bilaterally; Negative for moist oral mucous membranes HEENT Narrative: Oropharynx is extremely dry, dentition is good, Mallampati is 2, no thrush Eyes PERRL, EOMs intact bilaterally and conjunctivae normal Eyes Narrative: Mild scleral icterus is noted Neck supple Neck Narrative: Trachea is midline, no thyroid enlargement Resp normal respiratory effort, no retractions, no use of accessory muscles and clear to auscultation bilaterally Auscultation: Negative for rales, rhonchi or wheezes Cardio S1 normal heart sound, S2 normal heart sound, no murmurs, no rub, no gallops and no clicks Cardio Narrative: Tachycardic GI normal to inspection, nondistended, normoactive bowel sounds, soft to palpation and non-tender GI Narrative: [place]son on abdomen from previous electrode placement, no hernias Extremity Extremity Narrative: Right hand is swollen and erythematous, right elbow is swollen and erythematous, left hand first knuckle is swollen and erythematous, no clubbing or cyanosis is present, patient has a wound on the distal aspect of his second toe with eschar covering but no surrounding erythema or purulent drainage Skin no rashes or lesions noted, No no wounds, No skin turgor normal, No no jaundice, no petechiae and no mottling Skin Narrative: Noted as above, mild jaundice Neuro oriented x3, moves all extremities and no focal motor deficits Neuro Narrative: Generalized weakness noted Speech: speech normal Psych affect normal Psych Narrative: Patient is very pleasant, eye contact is good, patient interacts appropriately Results Lab / Micro Data 10/11/23 11:10 10/11/23 11:10 Labs: Laboratory Results - last 24 hr 10/11/23 11:10: WBC 17.7 H, RBC 4.58 L, Hgb 13.4, Hct 39.9 L, MCV 87.1, MCH 29.3, MCHC 33.6, RDW Std Deviation 41.6, RDW Coeff of Hermila 13.2, Plt Count 77 L, MPV 12.7 H, Immature Gran % (Auto) ONLINE CONTENT COORDINATOR, Neut % (Auto) ONLINE CONTENT COORDINATOR, Lymph % (Auto) ONLINE CONTENT COORDINATOR, [place] % (Auto) ONLINE CONTENT COORDINATOR, Eos % (Auto) ONLINE CONTENT COORDINATOR, Baso % (Auto) ONLINE CONTENT COORDINATOR, Absolute Neuts (auto) 16.1 H, A bsolute Lymphs (auto) 0.41 L, Total Counted 100, Neutrophils % (Manual) 92 H, Band Neutrophils % 5, Lymphocytes % (Manual) 2 L, Myelocytes % 1 H, Nucleated RBC % 0, Diff Path Review May foll, Platelet Estimate MKD DEC, Plt Morphology Comment LARGE, Sodium 131 L, Potassium 4.7, Chloride 93 L, Carbon Dioxide 23.0, Anion Gap 15, BUN 52 H, Creatinine 1.79 H, Estim Creat Clear Calc 56.70, Est GFR (MDRD) Af Amer 53 L, Est GFR (MDRD) Non-Af 44 L, BUN/Creatinine Ratio 29.1 H, G lucose 283 H, Calcium 8.4 L, Total Bilirubin 6.10 H, Direct Bilirubin 5.22 H, A ST 71 H, ALT 60, Alkaline Phosphatase 230 H, Total Protein 7.2, Albumin 1.7 L, G lobulin 5.5 H, Acetone Level NEGATIVE 10/11/23 11:14: POC Glucose 303 H 10/11/23 13:10: Lactic Acid 4.8 H* 10/11/23 13:30: Urine Color Cee, Urine Clarity Turbid, Urine pH 6.0, Ur Specific [place] 1.015, Urine Protein 30 H, Urine Glucose (UA) 1000 H, Urine Ketones 5 H, Urine Occult Blood 250 H, Urine Nitrite Negative, Urine Bilirubin 1 H, Urine Urobilinogen 4 H, Ur Leukocyte Esterase 500 H, Urine RBC 25-50 SEEN, Urine WBC >100 SEEN, Ur Squamous Epith Cells 0 SEEN, Ur Transition Epith Cell 0- 5 SEEN, Ur Renal Epithelial Cell 0-5 SEEN, Urine Bacteria 4+, Urine Mucus 0 SEEN ABG Data ABG results: ABG 10/11/23 13:20 Specimen Type EBEN Sample Site Not entered VBG pH 7.45 H VBG pO2 48 H VBG HCO3 23 VBG Total CO2 24 VBG O2 Sat (Calc) 86 H VBG Base Excess -1 POC Mix VBG pCO2 Pt Tmp 32.1 L O2 Delivery Device Not entered Imaging Radiology Impression Abdomen/Pelvis CT 10/11/23 11:20 IMPRESSION: Small gallstones are seen in the dependent portion of the gallbladder lumen. Mild splenomegaly. Electronically Signed: Jason Dangelo MD at 11:53 EDT , Gallbladder Ultrasound 10/11/23 12:12 IMPRESSION: Multiple gallstones. Mild hepatomegaly. Mild thickening of the gallbladder wall. Electronically Signed: Jason Dangelo MD at 13:21 EDT , Assessment & Plan Assessment/Plan (1) Sepsis: (2) UTI (urinary tract infection): (3) Acute kidney injury: (4) Dehydration: (5) Swelling of right elbow: (6) Swelling of right hand: (7) Swelling of left hand: (8) Diabetic ulcer of foot associated with diabetes mellitus due to underlying condition, limited to breakdown of skin: (9) Hyperbilirubinemia: (10) Thrombocytopenia: (11) Leukocytosis: (12) Hyponatremia: (13) Lactic acidosis: (14) Tachycardia: (15) Hypotension: (16) Tachypnea: (17) Polyarthralgia: PLAN: Plan Sepsis secondary to urinary tract infection -Meets criteria with leukocytosis, tachycardia, JULIANA, hypotension, thrombocytopenia, hyperbilirubinemia, lactic acidosis -Patient treated with early goal-directed therapy to include fluid resuscitation at 30 cc/kg of Dial body weight and seems to be responsive thus far -Highly suspect patient may be bacteremic -Blood and urine cultures are pending -Chest x-ray is unremarkable -Procalcitonin is pending -Will start on broad-spectrum antibiotics with vancomycin and Zosyn for now and plan to narrow once organism is identified -Consult critical care medicine Polyarthralgia -Patient with joint pain and erythema/swelling over right elbow, right hand and left MCP of first digit -Imaging is unrevealing -Check sed rate/CRP -Areas have been outlined with purple marker -Continue to monitor clinically -If does not improve may need orthopedic surgery to evaluate Hypotension/tachycardia -Secondary to the above -Should resolve with treatment of sepsis Lactic acidosis -Secondary to sepsis +/- metformin use with JULIANA -Trend per sepsis protocol -Hold metformin Hyperbilirubinemia -CT abdomen/pelvis gallbladder ultrasound are unremarkable for any suggestions of acute cholecystitis -Suspect this may be the result of sepsis -Patient without any right upper quadrant tenderness -Continue to monitor JULIANA -Serum creatinine baseline appears to run between 0.8 and 0.9 -On presentation serum creatinine 1.79 -Avoid nephrotoxins and will hold home Jardiance, ketorolac, lisinopril, meloxicam, and metformin -Aggressive fluid hydration -Recheck lab in a.m. Thrombocytopenia -Baseline is unknown -Suspect may be related to acute sepsis -Repeat in a.m. and will trend -Coags obtained and no significant abnormality Low back pain -Continue as needed p.o. pain medication--> not on NSAID related -Continue home gabapentin -PT/OT consultation -Patient states pain has overall been stable to improving so we will hold off on any further imaging at this time however would have low threshold to obtain MRI given above infection concerns if pain changes Left second digit diabetic foot wound -Tip of second digit appears to have ulceration -Check sed rate CRP -Consult podiatry History of essential hypertension/hyperlipidemia -Antihypertensives on hold secondary to hypotension and sepsis -Continue home rosuvastatin DM-2 -Check hemoglobin A1c -Hold home glimepiride -Will continue home glargine--> med rec says 40 units a day however patient states he takes 60 units a day -Will give 30 units for now and reevaluate -Hold prandial insulin and reinstitute when p.o. intake is better and kidney function improves -Moderate dose SSI for now -Cardiac/carb controlled diet -Accu-Cheks as ordered GERD -Continue home PPI Obesity -BMI is 31.7 -Recommend weight loss -Complicates treatment, prognosis, outcomes DVT prophylaxis -heparin 3 times daily for now with renal dysfunction and thrombocytopenia -If platelet count drops below 75,000 may need to consider discontinuation of chemoprophylaxis and initiation of mechanical prophylaxis with SCDs CODE STATUS -Full code as verified at admission Critical care time greater than 35 minutes without procedures Sepsis Attestation Sepsis Alert: Yes Sepsis Attestation: Agree w/Sepsis Date exam was performed: 10/11/23 Time exam was performed: 15:23 Possible Source of Sepsis: Genitourinary Sepsis Organ Dysfunction Criteria Present: SBP < 90 mmHg or MAP < 65 mmHg, Total Bilirubin > 2 mg/dl, Platelets <100,000 / uL and Lactic Acid > 2 mmol/L Fluid Resuscitation Fluid resuscitation indicated?: Yes Fluid Resuscitation ordered: 30 ml/kg fluid bolus ordered Amount of fluid ordered: 3,000 Sepsis Note Date exam was performed: 10/11/23 Time exam was performed: 17:44 Response to fluids: Fluid responsive hypotension Charges/Coding Procedures Hospitalists Procedures: 99141 Critical Care 1st Hr
--- NOTE | 2023-10-11 15:19 | NURSING ---
ICU HUMPHREY SEPSIS, UTI, JULIANA, ELEVATED BILIRUBIN
--- NOTE | 2023-10-11 15:35 | RAD_ITS ---
STUDY: X-RAY CHEST REASON FOR EXAM: Male, 48 years old. Tachypnea. TECHNIQUE: Single frontal view of the chest. COMPARISON: None. FINDINGS: Elevation of both hemidiaphragms with minimal basilar atelectasis. There is no demonstrated pleural abnormality. Normal size heart. Normal mediastinum and nova. Normal visualized pulmonary arteries. Normal visualized aortic arch and descending thoracic aorta. No abnormality of the visualized soft tissue structures of the upper abdomen. RAD/Chest 1 View (Portable) IMPRESSION: No active or acute cardiopulmonary disease. Electronically Signed: Joe Dave MD at 15:54 EDT ,
[2023-10-11 15:50] LABS: International Normalized Ratio 1.4; Prothrombin Time (Protime)PT. 16.8 SECONDS (11.7-14.9)
[2023-10-11 15:51] LABS: Partial Thromboplast Time 35.2 Seconds (24.1-36.2)
[2023-10-11 16:20] LABS: Allen Test Positive; Base Excess -3 mmol/L (-2 to +2); Bicarbonate 19.8 mmol/L (22-26); Blood Gas Specimen Type ART; Mode Not entered; O2 Delivery Device Not entered; PO2 69 mmHG (75-100); SITE R Radial; SO2 96 % (95-99); Total Carbon Dioxide 21 mmol/L; pCO2 23.3 mmHg (35-45); pH 7.54 (7.35-7.45)
[2023-10-11 16:33] LABS: Acetaminophen (Tylenol) Level < 2.0 ug/mL (10.0-30.0)
--- NOTE | 2023-10-11 17:04 | RAD_ITS ---
INDICATION: PAIN AND ERYTHEMA EXAMINATION/TECHNIQUE: X-RAY - RIGHT XR Hand Min 3 Views COMPARISON: None. FINDINGS: No acute fracture or malalignment. No blastic or lytic lesions. No degenerative changes are seen. The soft tissues are unremarkable. RAD/Hand Min 3 Views IMPRESSION: No acute radiographic abnormalities. Electronically Signed: Adam Rosales MD at 18:15 EDT ,
--- NOTE | 2023-10-11 17:08 | RAD_ITS ---
INDICATION: PAIN AND ERYTHEMA EXAMINATION/TECHNIQUE: X-RAY - LEFT XR Hand Min 3 Views COMPARISON: None. FINDINGS: No acute fracture or malalignment. No blastic or lytic lesions. No degenerative changes are seen. The soft tissues are unremarkable. RAD/Hand Min 3 Views IMPRESSION: No acute radiographic abnormalities. Electronically Signed: Adam Rosales MD at 18:16 EDT ,
[2023-10-11 17:13] LABS: Reflex Lactate? Y
--- NOTE | 2023-10-11 17:30 | CT_ITS ---
INDICATION: R ELBOW SWELLING EXAMINATION: CT Upper Extremity W/O Contrast Injection TECHNIQUE: Helically acquired images were obtained of the right elbow. 2-D reformats were performed by the technologist. A radiation dose optimization technique was used for this scan. IV Contrast dosage and agent: None. COMPARISON: None. FINDINGS: BONES AND ALIGNMENT: Subtle age indeterminate nondisplaced fracture of the olecranon process. The alignment is anatomic. JOINTS: No degenerative changes are seen. SOFT TISSUES: Mild subcutaneous edema surrounding the elbow. CT/Extremity Upper without Contra IMPRESSION: Subtle age indeterminate nondisplaced fracture of the olecranon process. Mild subcutaneous edema surrounding the elbow. Electronically Signed: Adam Rosales MD at 18:15 EDT ,
[2023-10-11] MEDS: Lactated Ringers 1,000 ML 75 ML IV (17:42)
[2023-10-11] MEDS: Vancomycin HCl 2,000 MG in 0.9% Normal Saline (500mL Bag) 500 ML 250 MG IV (17:44)
[2023-10-11 18:00] LABS: Erythrocyte Sedimentation Rate 127 mm/hr (0-20)
[2023-10-11] MEDS: oxyCODONE 5 MG Tablet PO (18:16)
[2023-10-11] MEDS: Acetaminophen 325 MG Tablet 650 MG PO (18:16)
[2023-10-11 18:54] LABS: Lactic Acid 2.5 mmol/L (0.4-1.9)
--- NOTE | 2023-10-11 19:32 | PCM.RX.CS ---
Consult Antibiotic Management Pharmacy has been consulted to manage selected antibiotic: Vancomycin Type of Intervention Type of Consult: New Suspected Infection Suspected Infection: Sepsis Labs Labs: Sodium 131 mmol/L (136-145) L 10/11/23 11:10 Potassium 4.7 mmol/L (3.5-5.1) 10/11/23 11:10 Chloride 93 mmol/L (98-107) L 10/11/23 11:10 Carbon Dioxide 23.0 mmol/L (21.0-32.0) 10/11/23 11:10 Anion Gap 15 (5-15) 10/11/23 11:10 BUN 52 mg/dL (7-18) H 10/11/23 11:10 Creatinine 1.79 mg/dL (0.70-1.30) H 10/11/23 11:10 Est GFR (MDRD) Af Amer 53 mL/min (>60) L 10/11/23 11:10 Est GFR (MDRD) Non-Af 44 mL/min (>60) L 10/11/23 11:10 BUN/Creatinine Ratio 29.1 RATIO (10-20) H 10/11/23 11:10 Glucose 283 mg/dL (74-106) H 10/11/23 11:10 Goal Trough Goal Trough: 15-20 mcg/mL Pharmacy Plan for Drug Dosing Pharmacy Plan for Drug Dosing: IV VANCOMYCIN Consulting Physician: Dr. Quincy Coles Indication: Sepsis 2/2 UTI Goal Trough: 15-20 SrCr: 1.79 CrCl: 57 mL/min Comments: loading dose of 2000mg IV x1 ordered and administered 10/11/23 @1744 Vancomycin Dose: 1000mg IV Q12hr to start 10/12/23 @0600 Pending Level: 10/13/23 @0530, prior to 4th total dose per protocol Pharmacy Service will continue to monitor and adjust dosing as required.
[2023-10-11 19:57] LABS: M R Staph aureus DNA By PCR Negative (Negative); Probe Check PASS; Specimen Processing Control PASS
[2023-10-11 20:38] LABS: Procalcitonin 6.16 ng/mL (0.00-0.09)
[2023-10-11] MEDS: Heparin Injection (Vial) 5,000 UNIT/ML VIAL 5000 UNIT SC (21:02)
--- NOTE | 2023-10-11 22:13 | NURSING ---
Blood glucose on patient's dexcom 101 @ 2100. Pt declined his HS lantus at this time.
[2023-10-12] VITALS (28 sets, daily range): BP systolic 94–125; BP diastolic 59–79; PULSE 78–119; RESP 16–40; TEMP 36.2–37.1; O2SAT 91–97; BMI 33.0
--- NOTE | 2023-10-12 00:41 | NURSING ---
Addendum entered by Mita Carroll 10/12/23 01:17: Blood glucose up to 73 at this time. Original Note: Pt's dexcom alarming that his blood glucose was 69. Pt given orange juice and hali doones. Blood sugar down to 66, milk given to patient.
[2023-10-12 03:18] LABS: Absolute Lymphocyte Count 0.33 X10^3/uL (0.83-4.51); Absolute Neutrophil Count 9.7 X10^3/uL (2.0-7.7); Eosinophil# 0.04 X10^3/uL; Eosinophils% 0.4 % (0-5); Hematocrit 32.1 % (40-54); Hemoglobin 10.8 g/dL (13.0-16.5); Lymphocyte # 0.33 X10^3/ul (0.83-4.51); Lymphocyte % 3.1 % (19-41); Mean Corp Hgb Conc 33.6 g/dL (32-36); Mean Corpuscular Hgb 29.4 pg (27.0-32.0); Mean Corpuscular Volume 87.5 fL (80-94); Mean Platelet Vol. 12.1 fl (6.2-12.0); Monocyte# 0.39 X10^3/uL; Monocyte% 3.7 % (0-10); NRBC Flagged by Analyzer 0 % (0-5); Neutrophil # 9.72 X10^3/uL (2.7-7.7); Neutrophil % 91.5 % (47-70); POSITIVE COUNT YES; POSITIVE DIFFERENTIAL YES; POSITIVE MORPHOLOGY YES; Platelet Count 69 K/mm3 (150-450); RBC Distribution Width CV 13.3 % (11.6-14.6); RBC Distribution Width SD 42.5 fl (35.1-43.9); Red Blood Count 3.67 M/mm3 (4.6-6.2); White Blood Count 10.6 K/mm3 (4.4-11.0)
[2023-10-12 03:20] LABS: Differential Indicated SCAN CRITERIA MET
[2023-10-12 03:42] LABS: ALB/GLOB Ratio 0.3 RATIO (0.9-2.4); AST(SGOT) 78 U/L (15-37); Alanine Aminotransfer ALT/SGPT 44 U/L (16-61); Albumin, Serum 1.3 g/dL (3.2-5.0); Alkaline Phosphatase 154 U/L (45-117); Anion Gap 9 (5-15); BUN 41 mg/dL (7-18); Calcium,Total 7.3 mg/dL (8.5-10.1); Chloride 103 mmol/L (98-107); Creatinine, Serum 1.08 mg/dL (0.70-1.30); EST Glomerular Filtration Rate 78 mL/min (>60); Est Glom Filt Rate - Afr Amer 94 mL/min (>60); Estimated Creatinine Clearance 97.38 ml/min; Globulin 4.6 g/dL (2.2-4.2); Glucose 90 mg/dL (74-106); Magnesium 2.6 mg/dL (1.6-2.6); Potassium 3.8 mmol/L (3.5-5.1); Protein, Total 5.9 g/dL (6.4-8.2); Sodium Level 135 mmol/L (136-145); Thyroid Stim Hormone (TSH) 0.15 uIU/mL (0.358-3.74)
[2023-10-12 04:21] LABS: Differential Comment SCANNED; Platelet Estimate SLT DEC (ADEQ); Toxic Granulation 2+; Vacuolated Cells 2+
[2023-10-12 04:22] LABS: Pathologist Review May foll
[2023-10-12] MEDS: Piperacil/Tazobactam 3.375 GM in 0.9% Normal Saline (50mL MB+) 50 ML IV ×3 (04:55→21:19)
[2023-10-12] MEDS: Vancomycin IV 1,000 MG/200 ML BAG 200 MG IV (04:55)
--- NOTE | 2023-10-12 07:14 | PCM.RX.CS ---
Consult Antibiotic Management Pharmacy has been consulted to manage selected antibiotic: Vancomycin Type of Intervention Type of Consult: Follow-up Suspected Infection Suspected Infection: Bacteremia and Other (UTI) Labs Labs: Sodium 135 mmol/L (136-145) L 10/12/23 03:10 Potassium 3.8 mmol/L (3.5-5.1) 10/12/23 03:10 Chloride 103 mmol/L (98-107) 10/12/23 03:10 Carbon Dioxide 23.0 mmol/L (21.0-32.0) 10/12/23 03:10 Anion Gap 9 (5-15) 10/12/23 03:10 BUN 41 mg/dL (7-18) H 10/12/23 03:10 Creatinine 1.08 mg/dL (0.70-1.30) 10/12/23 03:10 Est GFR (MDRD) Af Amer 94 mL/min (>60) 10/12/23 03:10 Est GFR (MDRD) Non-Af 78 mL/min (>60) 10/12/23 03:10 BUN/Creatinine Ratio 38.0 RATIO (10-20) H 10/12/23 03:10 Glucose 90 mg/dL (74-106) 10/12/23 03:10 Microbiology Microbiology: Microbiology 10/11/23 13:10 Blood Culture (Wb) - Anticubital Right Bacteria Detection (PCR) - Final Staphylococcus aureus 10/11/23 13:10 Blood Culture (Wb) - Anticubital Right Blood Culture - Preliminary Pharmacy Plan for Drug Dosing Pharmacy Plan for Drug Dosing: DAILY ASSESSMENT Current Vancomycin Dose: 1000MG Q12 Number of Doses Received: 2 Current Renal Function: SCR 1.08 MG/DL, CRCL 97 ML/MIN Renal Function Trend: Improved from SCr 1.79 (10/10) Lab/Micro: blood CX with staph, urine cx pending Any Change in Vanc Plan: Yes, dose increased to 2000mg due to improved CrCl per policy. Will push trough out so level is closer to steady state after dose adjustment. Pending Level: 10/13/23 @ 1630 Pharmacy Service will continue to monitor and adjust dosing as required.
[2023-10-12] MEDS: Lidocaine 5% Patch 1 PATCH TOPICAL (07:48)
[2023-10-12] MEDS: Pantoprazole Sodium 40 MG Tablet PO (07:48)
[2023-10-12] MEDS: oxyCODONE 5 MG Tablet PO ×2 (08:17→14:59)
[2023-10-12 09:00] LABS: Hemoglobin A1c 6.8 % (3.8-5.6)
[2023-10-12] MEDS: Lactated Ringers 1,000 ML 75 ML IV (09:54)
--- NOTE | 2023-10-12 11:21 | CON.PCM_ITS ---
Assessment & Plan Assessment/Plan (1) Diabetic ulcer of foot associated with diabetes mellitus due to underlying condition, limited to breakdown of skin: PLAN: The wound was covered with a thin discolored callus. It was selectively debrided today bedside sharply. Minimal bleeding from wound seen. No infection. Patient should follow with podiatry upon discharge. Wound is very superficial. Discussed findings with . He may ambulate as normal. Apply thin layer of antibacterial cream/ointment and band aid. Keep clean. (2) Lymphedema of leg: PLAN: Discussed this and how compression may be utilized in the future. Elevation and exercise are also important. Skin has not yet thickened and there are no wounds but discoloration seen. (3) Onychomycosis: PLAN: Podiatry should be seen regularly upon discharge for routine care and foot examinations. (4) Hammertoe: QUALIFIERS: Laterality: bilateral Qualified Code(s): M20.41 - Other hammer toe(s) (acquired), right foot; M20.42 - Other hammer toe(s) (acquired), left foot PLAN: Monitor for callus build up. HPI Consult Data Date of Consult: 10/12/23 HPI Narrative Reason for Consultation: Diabetic foot ulcer to left foot HPI Narrative: SHIV CADET, is a 48 M who presents [facility] Medical History Family history of colon cancer requiring screening colonoscopy Diarrhea Nausea & vomiting Abdominal pain Depression Family history of colon cancer GERD (gastroesophageal reflux disease) Diabetes HTN (hypertension) Home Medications ?Medication ?Instructions ?Recorded ?Last Taken ?Type fluoxetine 40 mg capsule 40 mg PO DAILY 06/23/18 10/11/23 History glimepiride 4 mg tablet 4 mg PO BID 06/23/18 10/11/23 History lisinopril 5 mg tablet 5 mg PO QHS KIDNEYS 06/23/18 10/10/23 History metformin 1,000 mg tablet 1,000 mg PO BID 06/23/18 10/11/23 History insulin glargine 100 unit/mL (3 40 unit subcut QHS DIABETES 10/06/19 10/11/23 History mL) subcutaneous pen meloxicam 15 mg tablet 15 mg PO DAILY PRN pain 10/06/19 Unknown History omeprazole 20 mg capsule,delayed 20 mg PO DAILY 10/06/19 10/11/23 History release cyclobenzaprine 10 mg tablet 10 mg PO TID 10/11/23 Unknown History empagliflozin 25 mg tablet 25 mg PO DAILY 10/11/23 10/11/23 History (Jardiance) fluoxetine 20 mg capsule 20 mg PO DAILY 10/11/23 10/11/23 History gabapentin 300 mg capsule 300 mg PO QHS 10/11/23 10/10/23 History insulin lispro 100 unit/mL 10 unit subcut TID 10/11/23 10/11/23 History subcutaneous pen (Humalog KwikPen (U-100) Insulin) ketorolac 10 mg tablet 10 mg PO TID 10/11/23 10/11/23 History rosuvastatin 5 mg tablet 5 mg PO DAILY 10/11/23 10/11/23 History Allergy/AdvReac Type Severity Reaction Status Date / Time No Known Allergies Allergy Verified 10/11/23 10:41 Family History Brother Colon cancer Mother Hypertension Surgical History No history of previous surgery Social History (Updated 10/11/23 @ 17:[address] Ashley Coles DO) household members: family housing: house Smoking Status: Never smoker alcohol intake: never substance use type: does not use ROS Integumentary Integumentary: Reports skin ulcer Physical Exam Narrative Patient's was in the room. The patient was able to be aroused but did not speak. She was the historian and explained how he injured his back before the 25 of September. He was placed on muscle relaxers and then he got better. Later on, his back pain returned. He did have some darker colored urine, but he did not have difficulty urinating or have any pain. When he got worse, they presented to the ER. admits she has not seen patient's feet in years as he is embarrassed of them. He also does not see any thermostat maker. His HA1c is higher than what PCP would like, she states. Const Constitutional Narrative: Pt winces in pain with touch of feet. Extremity General Extremity: edema bilateral (+2-3 pitting edema to b/l lower legs. Hyperpigmentation is present indicating chronic lymphedema.) lower extremity and other findings Other Details: Light touch sensation intact to both feet but there may be some neuropathy due to the wound findings. Peripheral Pulses: Yes pulses 2+ throughout Right Lower Extremity: foot and digits Positive for inspection (contracted toes are mild and reducible) Left Lower Extremity: foot and digits Positive for inspection (contracted toes are mild and reducible) Skin General Skin Exam: venous stasis Wounds: wounds noted size Size: .1x.1x.1cm to the distal left 2nd toe. Granular base. No probing, purulence Nails: discolored, dystrophic, yellow and thickened and other slight subungual hematoma to the left 3rd toenail plate. Nail is stable and no drainage. Firmly adhered. 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 Q[employer] ENGINEER, Neut % (Auto) SENIOR SOFTWARE QA ENGINEER, Lymph % (Auto) SENIOR SOFTWARE QA ENGINEER, [place] % (Auto) SENIOR SOFTWARE QA ENGINEER, Eos % (Auto) SENIOR SOFTWARE QA ENGINEER, Baso % (Auto) SENIOR SOFTWARE QA ENGINEER, Absolute Neuts (auto) 16.1 H, A bsolute Lymphs (auto) 0.41 L, Total Counted 100, Neutrophils % (Manual) 92 H, Band Neutrophils % 5, Lymphocytes % (Manual) 2 L, Myelocytes % 1 H, Nucleated RBC % 0, Diff Path Review May farrukh, Platelet Estimate MKD DEC, Plt Morphology Comment LARGE, Sodium 131 L, Potassium 4.7, Chloride 93 L, Carbon Dioxide 23.0, Anion Gap 15, BUN 52 H, Creatinine 1.79 H, Estim Creat Clear Calc 56.70, Est GFR (MDRD) Af Amer 53 L, Est GFR (MDRD) Non-Af 44 L, BUN/Creatinine Ratio 29.1 H, G lucose 283 H, Calcium 8.4 L, Total Bilirubin 6.10 H, Direct Bilirubin 5.22 H, A ST 71 H, ALT 60, Alkaline Phosphatase 230 H, Total Protein 7.2, Albumin 1.7 L, G lobulin 5.5 H, Procalcitonin 6.16 H, Acetone Level NEGATIVE 10/11/23 11:14: POC Glucose 303 H 10/11/23 13:10: Lactic Acid 4.8 H* 10/11/23 13:30: Urine Color Cee, Urine Clarity Turbid, Urine pH 6.0, Ur Specific [place] 1.015, Urine Protein 30 H, Urine Glucose (UA) 1000 H, Urine Ketones 5 H, Urine Occult Blood 250 H, Urine Nitrite Negative, Urine Bilirubin 1 H, Urine Urobilinogen 4 H, Ur Leukocyte Esterase 500 H, Urine RBC 25-50 SEEN, Urine WBC >100 SEEN, Ur Squamous Epith Cells 0 SEEN, Ur Transition Epith Cell 0- 5 SEEN, Ur Renal Epithelial Cell 0-5 SEEN, Urine Bacteria 4+, Urine Mucus 0 SEEN 10/11/23 15:35: PT 16.8 H, INR 1.4, APTT 35.2, Acetaminophen < 2.0 L 10/11/23 17:04: ESR 127 H 10/11/23 18:00: C-React Prot Ext Range 311.00 H 10/11/23 18:02: Lactic Acid 2.5 H* 10/11/23 18:21: MRSA (PCR) Negative 10/12/23 03:10: WBC 10.6, RBC 3.67 L, Hgb 10.8 L, Hct 32.1 L, MCV 87.5, MCH 29.4, MCHC 33.6, RDW Std Deviation 42.5, RDW Coeff of Hermila 13.3, Plt Count 69 L, MPV 12.1 H, Immature Gran % (Auto) 1.300 H, Neut % (Auto) 91.5 H, Lymph % (Auto) 3.1 L, [place] % (Auto) 3.7, Eos % (Auto) 0.4, Baso % (Auto) 0.0, Absolute Neuts (auto) 9.7 H, Absolute Lymphs (auto) 0.33 L, Nucleated RBC % 0, Differential Comment SCANNED, Diff Path Review May foll, Toxic Granulation 2+, Toxic Vacuolation 2+, Platelet Estimate SLT DEC, Sodium 135 L, Potassium 3.8, Chloride 103, Carbon Dioxide 23.0, Anion Gap 9, BUN 41 H, Creatinine 1.08, Estim Creat Clear Calc 97.38, Est GFR (MDRD) Af Amer 94, Est GFR (MDRD) Non-Af 78, B UN/Creatinine Ratio 38.0 H, Glucose 90, Hemoglobin A1c 6.8 H, Calcium 7.3 L, Phosphorus 4.0, Magnesium 2.6, Total Bilirubin 5.50 H, AST 78 H, ALT 44, A lkaline Phosphatase 154 H, Total Protein 5.9 L, Albumin 1.3 L, Globulin 4.6 H, A lbumin/Globulin Ratio 0.3 L, TSH 0.15 L Micro: Microbiology 10/11/23 13:10 Blood Culture (Wb) - Anticubital Right Bacteria Detection (PCR) - Final Staphylococcus aureus 10/11/23 13:10 Blood Culture (Wb) - Anticubital Right Blood Culture - Preliminary ABG Data ABG results: ABG 10/11/23 10/11/23 13:20 16:17 Specimen Type EBEN ART Sample Site Not entered R Radial pH 7.54 H Bicarbonate Actual 19.8 L Total CO2 21 Base Excess -3 L O2 Saturation 96 ABG pCO2 23.3 L ABG pO2 69 L Ronak Test Positive VBG pH 7.45 H VBG pO2 48 H VBG HCO3 23 VBG Total CO2 24 VBG O2 Sat (Calc) 86 H VBG Base Excess -1 POC Mix VBG pCO2 Pt Tmp 32.1 L O2 Delivery Device Not entered Not entered Vent Mode Not entered Imaging Radiology Impression Abdomen/Pelvis CT 10/11/23 11:20 IMPRESSION: Small gallstones are seen in the dependent portion of the gallbladder lumen. Mild splenomegaly. Electronically Signed: Jason Dangelo MD at 11:53 EDT , Gallbladder Ultrasound 10/11/23 12:12 IMPRESSION: Multiple gallstones. Mild hepatomegaly. Mild thickening of the gallbladder wall. Electronically Signed: Jason Dangelo MD at 13:21 EDT , Chest X-Ray 10/11/23 15:35 IMPRESSION: No active or acute cardiopulmonary disease. Electronically Signed: Joe Dave MD at 15:54 EDT , Hand X-Ray 10/11/23 17:04 IMPRESSION: No acute radiographic abnormalities. Electronically Signed: Adam Rosales MD at 18:15 EDT , Hand X-Ray 10/11/23 17:08 IMPRESSION: No acute radiographic abnormalities. Electronically Signed: Adam Rosales MD at 18:16 EDT , Upper Extremity CT 10/11/23 17:30 IMPRESSION: Subtle age indeterminate nondisplaced fracture of the olecranon process. Mild subcutaneous edema surrounding the elbow. Electronically Signed: Adam Rosales MD at 18:15 EDT ,
--- NOTE | 2023-10-12 11:42 | CASEMGMT ---
Addendum entered by Ama Martinez 10/12/23 11:57: Provided pt with list of local providers for O2 needs, pt would like to use [facility] if O2 needed at time of DC. Original Note: INDRA LAU Assessment: Face to Face with pt for initial transition planning/care coordination assessment. INDRA LAU introduced self and role at [facility], pt voices understanding and consents to assessment. Pt is A&O x4 and answers all questions appropriately at this time. Pt sitting up in bed in no distress, sitting at bedside. Pt agreeable to answering questions with family in the room. Care providers, pharmacy, and demographics verified/updated. Admitting Dx: Sepsis, UTI PCP: Radha Specialists: Denies Preferred Pharmacy: [facility] Insurance: [employer] Prescription Benefit: yes LNOK: Shobha - Living Arrangements: Pt lives with and 2 kids at home. ADLs: Independent at baseline. Transportation: Pt drives self and denies concerns with transportation. DME: Denies HHC/SNF: Denies Hx of. Pt states no concerns with going home at time of dc. Pt states no further concerns/needs. CM to follow. Advised pt to ask CM if any further question/concerns/needs arise, voices understanding. Pt Goal: Home Plan: Home, follow plan of care. Sonu BURRELL CM
--- NOTE | 2023-10-12 12:48 | PN.HOSP_ITS ---
Subjective Subjective Feels little bit better today Objective Data Objective Data Vital Signs: Vital Signs Temp Pulse Resp BP Pulse Ox O2 Del Method O2 Flow Rate 98.8 F 115 H 18 111/74 97 Nasal Cannula 3 10/12/23 08:00 10/12/23 08:00 10/12/23 08:00 10/12/23 08:00 10/12/23 08:00 10/12/23 08:00 10/12/23 08:00 Oxygen Flow Rate (L/min) 3 Oxygen Delivery Method Nasal Cannula Weight: 222 lb 14.197 oz Body Mass Index (BMI) 33.0 Intake & Output: Intake and Output for Last 24 Hours 10/11/23 10/12/23 10/13/23 03:59 03:59 03:59 Intake Total 4745.0 / 4745.0 1552.50 / 1552.50 Output Total 900 / 900 300 / 300 Balance 3845.0 / 3845.0 1252.50 / 1252.50 Lab / Micro Data 10/12/23 03:10 10/12/23 03:10 Labs: Laboratory Results - last 24 hr 10/11/23 11:10: Procalcitonin 6.16 H 10/11/23 13:10: Lactic Acid 4.8 H* 10/11/23 13:30: Urine Color Cee, Urine Clarity Turbid, Urine pH 6.0, Ur Specific [place] 1.015, Urine Protein 30 H, Urine Glucose (UA) 1000 H, Urine Ketones 5 H, Urine Occult Blood 250 H, Urine Nitrite Negative, Urine Bilirubin 1 H, Urine Urobilinogen 4 H, Ur Leukocyte Esterase 500 H, Urine RBC 25-50 SEEN, Urine WBC >100 SEEN, Ur Squamous Epith Cells 0 SEEN, Ur Transition Epith Cell 0- 5 SEEN, Ur Renal Epithelial Cell 0-5 SEEN, Urine Bacteria 4+, Urine Mucus 0 SEEN 10/11/23 15:35: PT 16.8 H, INR 1.4, APTT 35.2, Acetaminophen < 2.0 L 10/11/23 17:04: ESR 127 H 10/11/23 18:00: C-React Prot Ext Range 311.00 H 10/11/23 18:02: Lactic Acid 2.5 H* 10/11/23 18:21: MRSA (PCR) Negative 10/12/23 03:10: WBC 10.6, RBC 3.67 L, Hgb 10.8 L, Hct 32.1 L, MCV 87.5, MCH 29.4, MCHC 33.6, RDW Std Deviation 42.5, RDW Coeff of Hermila 13.3, Plt Count 69 L, MPV 12.1 H, Immature Gran % (Auto) 1.300 H, Neut % (Auto) 91.5 H, Lymph % (Auto) 3.1 L, [place] % (Auto) 3.7, Eos % (Auto) 0.4, Baso % (Auto) 0.0, Absolute Neuts (auto) 9.7 H, Absolute Lymphs (auto) 0.33 L, Nucleated RBC % 0, Differential Comment SCANNED, Diff Path Review July foll, Toxic Granulation 2+, Toxic Vacuolation 2+, Platelet Estimate SLT DEC, Sodium 135 L, Potassium 3.8, Chloride 103, Carbon Dioxide 23.0, Anion Gap 9, BUN 41 H, Creatinine 1.08, Estim Creat Clear Calc 97.38, Est GFR (MDRD) Af Amer 94, Est GFR (MDRD) Non-Af 78, B UN/Creatinine Ratio 38.0 H, Glucose 90, Hemoglobin A1c 6.8 H, Calcium 7.3 L, Phosphorus 4.0, Magnesium 2.6, Total Bilirubin 5.50 H, AST 78 H, ALT 44, A lkaline Phosphatase 154 H, Total Protein 5.9 L, Albumin 1.3 L, Globulin 4.6 H, A lbumin/Globulin Ratio 0.3 L, TSH 0.15 L Micro: Microbiology 10/11/23 13:30 Urine, Clean Catch Urine Culture - Preliminary Staphylococcus aureus 10/11/23 13:10 Blood Culture (Wb) - Anticubital Right Bacteria Detection (PCR) - Final Staphylococcus aureus 10/11/23 13:10 Blood Culture (Wb) - Anticubital Right Blood Culture - Preliminary ABG Data ABG results: ABG 10/11/23 10/11/23 13:20 16:17 Specimen Type EBEN ART Sample Site Not entered R Radial pH 7.54 H Bicarbonate Actual 19.8 L Total CO2 21 Base Excess -3 L O2 Saturation 96 ABG pCO2 23.3 L ABG pO2 69 L Ronak Test Positive VBG pH 7.45 H VBG pO2 48 H VBG HCO3 23 VBG Total CO2 24 VBG O2 Sat (Calc) 86 H VBG Base Excess -1 POC Mix VBG pCO2 Pt Tmp 32.1 L O2 Delivery Device Not entered Not entered Vent Mode Not entered Radiography Diagnostic Testing: Radiology Impression Gallbladder Ultrasound 10/11/23 12:12 IMPRESSION: Multiple gallstones. Mild hepatomegaly. Mild thickening of the gallbladder wall. Electronically Signed: Jason Dangelo MD at 13:21 EDT , Chest X-Ray 10/11/23 15:35 IMPRESSION: No active or acute cardiopulmonary disease. Electronically Signed: Joe Dave MD at 15:54 EDT , Hand X-Ray 10/11/23 17:04 IMPRESSION: No acute radiographic abnormalities. Electronically Signed: Adam Rosales MD at 18:15 EDT , Hand X-Ray 10/11/23 17:08 IMPRESSION: No acute radiographic abnormalities. Electronically Signed: Adam Rosales MD at 18:16 EDT , Upper Extremity CT 10/11/23 17:30 IMPRESSION: Subtle age indeterminate nondisplaced fracture of the olecranon process. Mild subcutaneous edema surrounding the elbow. Electronically Signed: Adam Rosales MD at 18:15 EDT , Physical Exam Narrative General: Alert, Oriented x3, Cooperative, No apparent distress HEENT: Atraumatic, PERRLA, EOMI, Normocephalic Oral: Moist Mucosa Neck: Supple, No JVD Lungs: Clear to auscultation, Normal air movement, No rhonchi, No wheeze, No rales Cardiovascular: Regular rate, Regular Rhythm, Normal S1, Normal S2, No murmurs Abdomen: Soft, Non Tender, Non-Distended, No Hepato-splenomegaly Extremities: Edema, Capillary Refill Less than 3 Seconds Skin: Redness on his right hand and elbow as well as on his left first MCP joint Musculoskeletal: No Tenderness to Palpation of Joints or Extremities Neurological: No focal neurological deficits, Motor Exam 5/5 strength throughout, Sensory exam intact to light touch and pain Psych/Mental Status: Normal Affect, Appropriate Assessment & Plan Assessment/Plan (1) Sepsis: (2) UTI (urinary tract infection): (3) Acute kidney injury: (4) Diabetic ulcer of foot associated with diabetes mellitus due to underlying condition, limited to breakdown of skin: (5) Polyarthralgia: PLAN: Plan 1. Sepsis secondary to Staph aureus UTI with Staph aureus bacteremia with JULIANA ? Will await testing for MSSA versus MRSA ? Continue with Vanco and Zosyn ? Concern for possible polyarticular spread, will repeat blood cultures today to assess for clearance and obtain an echo ? He does have a subacute fracture of his olecranon process of the right elbow ? Will consult infectious disease for evaluation on Saturday ? Elevated bilirubin likely secondary to sepsis will monitor ? Renal function returned to baseline, will monitor, will also monitor thrombocytopenia in the setting of sepsis 2. Essential HTN/HLD ? Blood pressures are stable ? Will hold his home medications given his sepsis ? Will monitor make adjustments as necessary ? Continue with Crestor 3. DM 2 with left second digit wound ? Appreciate podiatry's assistance ? Continue with sliding scale insulin ? Accu-Cheks ACHS ? Will monitor make adjustments as necessary ? A1c of 6.8 so decent control 4. GERD ? Stable ? Continue with PPI DVT: SCDs Charges/Coding Visit Charges Inpatient E&M: 71081 Subs Hosp L2
--- NOTE | 2023-10-12 13:00 | ECHOL_ITS ---
Reason For Study: Bacteremia Procedure This was a limited 2D transthoracic echocardiogram. Exam performed portable in patient room. Left Ventricle Normal LV size. Left ventricular systolic function is normal. The left ventricular ejection fraction is 60 %. No regional wall motion abnormalities noted. Right Ventricle Normal right ventricle. Normal systolic function. Atria Normal left atrium. Normal right atrium. Mitral Valve Normal mitral valve. Tricuspid Valve Normal tricuspid valve. Mild (1+) tricuspid valve insufficiency. Pulmonary artery systolic pressure is 48 mmHg. Aortic Valve Trisinus/trileaflet aortic valve. Pulmonic Valve Normal pulmonic valve. Great Vessels Normal aortic root. The pulmonary artery is normal size. Inferior vena cava collapse with respiration. Pericardium/Pleural No pericardial effusion. MMode/2D Measurements & Calculations LVIDd: 4.6 cm IVSd: 1.0 cm Ao root diam: 3.4 cm LVIDs: 2.8 cm LVPWd: 0.83 cm LA dimension: 3.7 cm FS: 38.8 % Doppler Measurements & Calculations TR max adrianna: 333.2 cm/sec TR max P.4 mmHg ECHO/Echo, Limited Study Interpretation Summary Normal LV size. Left ventricular systolic function is normal. The left ventricular ejection fraction is 60 %. There is no evidence of a mass or vegetation. This does not rule out endocardit is. Ordering Physician: Jacob Rosas Performed By: Brayan Anaya RCS
[2023-10-12] MEDS: Vancomycin HCl 2,000 MG in 0.9% Normal Saline (500mL Bag) 500 ML 250 MG IV (17:08)
[2023-10-12] MEDS: Dextrose 5%-Lactated Ringers 1,000 ML 75 ML IV (21:40)
[2023-10-13] VITALS (28 sets, daily range): BP systolic 94–128; BP diastolic 60–76; PULSE 104–115; RESP 29–42; TEMP 36.2–37.2; O2SAT 92–96; BMI 33.3
[2023-10-13] MEDS: Vancomycin HCl 2,000 MG in 0.9% Normal Saline (500mL Bag) 500 ML 250 MG IV (04:34)
[2023-10-13 04:44] LABS: Absolute Lymphocyte Count 0.45 X10^3/uL (0.83-4.51); Absolute Neutrophil Count 9.6 X10^3/uL (2.0-7.7); Basophil# 0.06 X10^3/uL; Basophil% 0.6 % (0-1); Eosinophil# 0.04 X10^3/uL; Eosinophils% 0.4 % (0-5); Hemoglobin 10.4 g/dL (13.0-16.5); Lymphocyte # 0.45 X10^3/ul (0.83-4.51); Lymphocyte % 4.3 % (19-41); Mean Corp Hgb Conc 33.5 g/dL (32-36); Mean Corpuscular Hgb 29.2 pg (27.0-32.0); Mean Corpuscular Volume 87.1 fL (80-94); Monocyte# 0.31 X10^3/uL; Monocyte% 2.9 % (0-10); NRBC Flagged by Analyzer 0.2 % (0-5); Neutrophil # 9.55 X10^3/uL (2.7-7.7); Neutrophil % 90.4 % (47-70); POSITIVE COUNT YES; POSITIVE DIFFERENTIAL YES; POSITIVE MORPHOLOGY YES; Platelet Count 80 K/mm3 (150-450); RBC Distribution Width CV 13.4 % (11.6-14.6); Red Blood Count 3.56 M/mm3 (4.6-6.2); White Blood Count 10.6 K/mm3 (4.4-11.0)
[2023-10-13 04:47] LABS: Differential Indicated SCAN CRITERIA MET
[2023-10-13 04:56] LABS: Anion Gap 8 (5-15); BUN 31 mg/dL (7-18); Calcium,Total 7.2 mg/dL (8.5-10.1); Chloride 102 mmol/L (98-107); EST Glomerular Filtration Rate 85 mL/min (>60); Est Glom Filt Rate - Afr Amer 103 mL/min (>60); Estimated Creatinine Clearance 107.03 ml/min; Glucose 71 mg/dL (74-106); Potassium 3.6 mmol/L (3.5-5.1); Sodium Level 135 mmol/L (136-145)
[2023-10-13] MEDS: Piperacil/Tazobactam 3.375 GM in 0.9% Normal Saline (50mL MB+) 50 ML IV ×2 (06:28→14:06)
[2023-10-13] MEDS: Acetaminophen 325 MG Tablet 650 MG PO (06:31)
[2023-10-13 06:33] LABS: Differential Comment SCANNED; Platelet Estimate SLT DEC (ADEQ)
[2023-10-13] MEDS: Pantoprazole Sodium 40 MG Tablet PO (08:06)
--- NOTE | 2023-10-13 09:23 | PCM.PN.HOSP ---
Subjective Subjective Doing well, no issues overnight. Feels little better today. Objective Data Objective Data Vital Signs: Vital Signs Temp Pulse Resp BP Pulse Ox O2 Del Method O2 Flow Rate 97.9 F 107 H 38 H 106/64 94 Nasal Cannula 3 10/13/23 07:00 10/13/23 08:00 10/13/23 08:00 10/13/23 08:00 10/13/23 08:00 10/13/23 08:00 10/13/23 08:00 Oxygen Flow Rate (L/min) 3 Oxygen Delivery Method Nasal Cannula Weight: 225 lb 1.471 oz Body Mass Index (BMI) 33.3 Intake & Output: Intake and Output for Last 24 Hours 10/12/23 10/13/23 10/14/23 03:59 03:59 03:59 Intake Total 4745.0 / 4745.0 4475.00 / 4475.00 770.83 / 770.83 Output Total 900 / 900 1600 / 1600 1000 / 1000 Balance 3845.0 / 3845.0 2875.00 / 2875.00 -229.17 / -229.17 Lab / Micro Data 10/13/23 04:30 10/13/23 04:30 Labs: Laboratory Results - last 24 hr 10/13/23 04:30: WBC 10.6, RBC 3.56 L, Hgb 10.4 L, Hct 31.0 L, MCV 87.1, MCH 29.2, MCHC 33.5, RDW Std Deviation 42.0, RDW Coeff of Hermila 13.4, Plt Count 80 L, MPV 11.0, Immature Gran % (Auto) 1.400 H, Neut % (Auto) 90.4 H, Lymph % (Auto) 4.3 L, [place] % (Auto) 2.9, Eos % (Auto) 0.4, Baso % (Auto) 0.6, Absolute Neuts (auto) 9.6 H, Absolute Lymphs (auto) 0.45 L, Nucleated RBC % 0.2, Differential Comment SCANNED, Platelet Estimate SLT DEC, Sodium 135 L, Potassium 3.6, Chloride 102, Carbon Dioxide 25.0, Anion Gap 8, BUN 31 H, Creatinine 1.00, Estim Creat Clear Calc 107.03, Est GFR (MDRD) Af Amer 103, Est GFR (MDRD) Non-Af 85, BUN/Creatinine Ratio 31.0 H, Glucose 71 L, Calcium 7.2 L Micro: Microbiology 10/12/23 13:25 Blood Culture (Wb) - Anticubital Left Blood Culture - Preliminary 10/11/23 13:10 Blood Culture (Wb) - Anticubital Right Bacteria Detection (PCR) - Final Staphylococcus aureus 10/11/23 13:10 Blood Culture (Wb) - Anticubital Right Blood Culture - Final Staphylococcus aureus 10/11/23 13:30 Urine, Clean Catch Urine Culture - Preliminary Staphylococcus aureus Physical Exam Narrative General: Alert, Oriented x3, Cooperative, No apparent distress HEENT: Atraumatic, PERRLA, EOMI, Normocephalic Oral: Moist Mucosa Neck: Supple, No JVD Lungs: Clear to auscultation, Normal air movement, No rhonchi, No wheeze, No rales Cardiovascular: Regular rate, Regular Rhythm, Normal S1, Normal S2, No murmurs Abdomen: Soft, Non Tender, Non-Distended, No Hepato-splenomegaly Extremities: Edema, Capillary Refill Less than 3 Seconds Skin: Redness on his right hand and elbow as well as on his left first MCP joint Musculoskeletal: No Tenderness to Palpation of Joints or Extremities Neurological: No focal neurological deficits, Motor Exam 5/5 strength throughout, Sensory exam intact to light touch and pain Psych/Mental Status: Normal Affect, Appropriate Assessment & Plan Assessment/Plan (1) Sepsis: (2) UTI (urinary tract infection): (3) Acute kidney injury: (4) Diabetic ulcer of foot associated with diabetes mellitus due to underlying condition, limited to breakdown of skin: (5) Polyarthralgia: PLAN: Plan 1. Sepsis secondary to Staph aureus UTI with Staph aureus bacteremia with JULIANA ? Will await testing for MSSA versus MRSA ? Continue with Vanco and Zosyn ? Concern for possible polyarticular spread, repeat blood cultures are also demonstrating gram-positive cocci in clusters. Echo tomorrow ? He does have a subacute fracture of his olecranon process of the right elbow ? Will consult infectious disease for evaluation on Saturday ? Elevated bilirubin likely secondary to sepsis will monitor ? Renal function returned to baseline, will monitor, will also monitor thrombocytopenia in the setting of sepsis 2. Essential HTN/HLD ? Blood pressures are stable ? Will hold his home medications given his sepsis ? Will monitor make adjustments as necessary ? Continue with Crestor 3. DM 2 with left second digit wound ? Appreciate podiatry's assistance ? Continue with sliding scale insulin ? Accu-Cheks ACHS ? Will monitor make adjustments as necessary ? A1c of 6.8 so decent control 4. GERD ? Stable ? Continue with PPI DVT: SCDs Charges/Coding Visit Charges Inpatient E&M: 06765 Subs Hosp L2
[2023-10-13 10:16] LABS: Erythrocyte Sedimentation Rate 112 mm/hr (0-20)
[2023-10-13] MEDS: Dextrose 5%-Lactated Ringers 1,000 ML 75 ML IV (11:15)
[2023-10-13] MEDS: oxyCODONE 5 MG Tablet PO (12:45)
[2023-10-13] MEDS: Vancomycin Trough/Random Due 1 LAB MC (14:07)
[2023-10-13 14:39] LABS: Vancomycin, Trough Level 14.6 ug/mL (5.0-15.0)
[2023-10-13] MEDS: Cefazolin 2 GM in 0.9% Normal Saline (100mL Bag) 100 ML IV ×2 (15:54→21:01)
[2023-10-13 21:27] LABS: Bedside Glucose 65 mg/dL (74-106)
[2023-10-13 23:44] LABS: Bedside Glucose 113 mg/dL (74-106)
[2023-10-13 23:44] LABS: Bedside Glucose 65 mg/dL (74-106)
[2023-10-13 23:44] LABS: Bedside Glucose 69 mg/dL (74-106)
[2023-10-14] VITALS (38 sets, daily range): BP systolic 100–149; BP diastolic 60–73; PULSE 97–118; RESP 21–55; TEMP 36.4–39.1; O2SAT 94–97; BMI 34.3
[2023-10-14] MEDS: Dextrose 5%-Lactated Ringers 1,000 ML 75 ML IV (00:33)
[2023-10-14] MEDS: Cefazolin 2 GM in 0.9% Normal Saline (100mL Bag) 100 ML IV ×3 (05:03→21:41)
[2023-10-14 05:53] LABS: Absolute Lymphocyte Count 0.53 X10^3/uL (0.83-4.51); Basophil# 0.06 X10^3/uL; Basophil% 0.5 % (0-1); Eosinophil# 0.03 X10^3/uL; Eosinophils% 0.2 % (0-5); Hematocrit 27.6 % (40-54); Hemoglobin 9.4 g/dL (13.0-16.5); Lymphocyte # 0.53 X10^3/ul (0.83-4.51); Lymphocyte % 4.3 % (19-41); Mean Corp Hgb Conc 34.1 g/dL (32-36); Mean Corpuscular Hgb 29.2 pg (27.0-32.0); Mean Corpuscular Volume 85.7 fL (80-94); Mean Platelet Vol. 11.2 fl (6.2-12.0); Monocyte# 0.38 X10^3/uL; Monocyte% 3.1 % (0-10); NRBC Flagged by Analyzer 0.2 % (0-5); Neutrophil # 11.01 X10^3/uL (2.7-7.7); Neutrophil % 90.3 % (47-70); POSITIVE DIFFERENTIAL YES; POSITIVE MORPHOLOGY YES; Platelet Count 107 K/mm3 (150-450); RBC Distribution Width CV 13.5 % (11.6-14.6); RBC Distribution Width SD 41.9 fl (35.1-43.9); Red Blood Count 3.22 M/mm3 (4.6-6.2); White Blood Count 12.2 K/mm3 (4.4-11.0)
[2023-10-14 06:03] LABS: Differential Indicated SCAN CRITERIA MET
[2023-10-14 06:32] LABS: ALB/GLOB Ratio 0.2 RATIO (0.9-2.4); AST(SGOT) 93 U/L (15-37); Alanine Aminotransfer ALT/SGPT 35 U/L (16-61); Alkaline Phosphatase 146 U/L (45-117); Anion Gap 7 (5-15); BUN 25 mg/dL (7-18); BUN/Creat Ratio 25.8 RATIO (10-20); Calcium,Total 7.3 mg/dL (8.5-10.1); Chloride 100 mmol/L (98-107); Creatinine, Serum 0.97 mg/dL (0.70-1.30); EST Glomerular Filtration Rate 88 mL/min (>60); Est Glom Filt Rate - Afr Amer 107 mL/min (>60); Estimated Creatinine Clearance 112.52 ml/min; Glucose 79 mg/dL (74-106); Potassium 3.7 mmol/L (3.5-5.1); Sodium Level 130 mmol/L (136-145)
[2023-10-14 06:54] LABS: Differential Comment SCANNED
[2023-10-14 07:06] LABS: Bedside Glucose 84 mg/dL (74-106)
--- NOTE | 2023-10-14 08:02 | PN.HOSP_ITS ---
Reason for Visit Reason for Visit: Diagnoses Sepsis, unspecified organism (10/11/23) Tinea unguium (10/11/23) Thrombocytopenia, unspecified (10/11/23) Elevated white blood cell count, unspecified (10/11/23) Diabetes mellitus due to underlying condition with foot ulcer (10/11/23) Other disorders of bilirubin metabolism (10/11/23) Dehydration (10/11/23) Hypo-osmolality and hyponatremia (10/11/23) Acidosis, unspecified (10/11/23) Lymphedema, not elsewhere classified (10/11/23) Hypotension, unspecified (10/11/23) Non-pressure chronic ulcer of other part of unspecified foot limited to breakdown of skin (10/11/23) Other hammer toe(s) (acquired), right foot (10/11/23) Other hammer toe(s) (acquired), left foot (10/11/23) Effusion, right elbow (10/11/23) Pain in unspecified joint (10/11/23) Other specified soft tissue disorders (10/11/23) Acute kidney failure, unspecified (10/11/23) Urinary tract infection, site not specified (10/11/23) Tachycardia, unspecified (10/11/23) Tachypnea, not elsewhere classified (10/11/23) Subjective Subjective Patient is a 48-year-old gentleman on admission with sepsis secondary to staph bacteremia as well as acute kidney injury Objective Data Objective Data Vital Signs: Vital Signs Temp Pulse Resp BP Pulse Ox O2 Del Method O2 Flow Rate 99.3 F H 112 H 32 H 136/69 H 95 Nasal Cannula 2 10/14/23 07:00 10/14/23 07:00 10/14/23 07:00 10/14/23 07:00 10/14/23 07:00 10/14/23 07:00 10/14/23 07:00 FiO2 95 10/13/23 14:00 Oxygen Flow Rate (L/min) 2 Oxygen Delivery Method Nasal Cannula Weight: 105.2 kg Body Mass Index (BMI) 34.3 Intake & Output: Intake and Output for Last 24 Hours 10/12/23 10/13/23 10/14/23 23:59 23:59 23:59 Intake Total 4875.00 / 5075.00 4672.08 / 4972.08 978.75 / 978.75 Output Total 1375 / 2125 3800 / 4150 1025 / 1025 Balance 3500.00 / 2950.00 872.08 / 822.08 -46.25 / -46.25 Lab / Micro Data 10/14/23 05:29 10/14/23 05:29 Labs: Laboratory Results - last 24 hr 10/13/23 09:40: ESR 112 H, C-React Prot Ext Range 196.00 H 10/13/23 14:10: Vancomycin Trough 14.6 10/13/23 21:07: POC Glucose 65 L 10/13/23 22:14: POC Glucose 69 L 10/13/23 22:53: POC Glucose 65 L 10/13/23 23:25: POC Glucose 113 H 10/14/23 05:29: WBC 12.2 H, RBC 3.22 L, Hgb 9.4 L, Hct 27.6 L, MCV 85.7, MCH 29.2, MCHC 34.1, RDW Std Deviation 41.9, RDW Coeff of Hermila 13.5, Plt Count 107 L, MPV 11.2, Immature Gran % (Auto) 1.600 H, Neut % (Auto) 90.3 H, Lymph % (Auto) 4.3 L, [place] % (Auto) 3.1, Eos % (Auto) 0.2, Baso % (Auto) 0.5, Absolute Neuts (auto) 11.0 H, Absolute Lymphs (auto) 0.53 L, Nucleated RBC % 0.2, Differential Comment SCANNED, Sodium 130 L, Potassium 3.7, Chloride 100, Carbon Dioxide 23.0, Anion Gap 7, BUN 25 H, Creatinine 0.97, Estim Creat Clear Calc 112.52, Est GFR (MDRD) Af Amer 107, Est GFR (MDRD) Non-Af 88, BUN/Creatinine Ratio 25.8 H, Glucose 79, Calcium 7.3 L, Total Bilirubin 8.20 H, AST 93 H, ALT 35, Alkaline Phosphatase 146 H, Total Protein 6.0 L, Albumin 1.0 L, Globulin 5.0 H, A lbumin/Globulin Ratio 0.2 L 10/14/23 06:40: POC Glucose 84 Micro: Microbiology 10/11/23 13:30 Urine, Clean Catch Urine Culture - Final Staphylococcus aureus 10/12/23 13:25 Blood Culture (Wb) - Anticubital Left Blood Culture - Preliminary 10/11/23 13:10 Blood Culture (Wb) - Anticubital Right Bacteria Detection (PCR) - Final Staphylococcus aureus 10/11/23 13:10 Blood Culture (Wb) - Anticubital Right Blood Culture - Final Staphylococcus aureus Physical Exam Narrative GENERAL: cooperative HEENT: Atraumatic; normocephalic EYES; icteric, Normal Conjunctiva NECK; supple, normal thyroid, RESPIRATORY: Diminished to auscultation CARDIOVASCULAR: Regular S1 S2, GI: soft, normoactive bowel sounds, : No Renal angle tenderness; EXTREMITIES: edema, no clubbing, MUSCULOSKELETAL: no muscle wasting NEURO: Awake; no lateralizing signs. SKIN: No Rash PSYCH; Flat affect Assessment & Plan Assessment/Plan (1) Staphylococcus aureus bacteremia: PLAN: Plan Patient is a 48-year-old gentleman on admission with sepsis secondary to staph bacteremia as well as acute kidney injury 1. Sepsis ? Secondary to start of aureus UTI with bacteremia. There is concern for possible polyarticular spread with patient complaining of joint stiffness. A transthoracic echo has been ordered if nondiagnostic will obtain BETHANIE. Repeat blood cultures sent consult placed to ID 2. Abnormal LFTs ? Patient has significant hyperbilirubinemia with elevated With mildly elevated transaminases. Patient denies alcohol use. Right upper quadrant ultrasound ordered did show Multiple gallstones. Mild hepatomegaly. Mild thickening of the gallbladder wall consult placed to GI 3. Diabetic foot ulcer involving the left second digit ? Podiatry consulted patient had bedside wound debridement 4. Diabetes mellitus type II -patient's oral hypoglycemics held. Placed on long acting insulin, Accu-Cheks a.c. and at bedtime and covered with sliding scale insulin 5. Right elbow swelling ? Imaging studies obtained demonstrate subtle age indeterminate nondisplaced fracture of the olecranon process. Mild subcutaneous edema surrounding the elbow. 6. Dyslipidemia -Patient is on statin therapy, continued at home dose 7. GERD ? On PPI 8. Acute kidney injury?present on admission ? Resolved 9. Hypertension - Blood pressure controlled, home medications continued with dose adjustment as needed 10. Hyponatremia ?Ordered urine osmole, serum osmole as well as urine sodium level as part of evaluation 11. Mild S-shaped scoliosis with degenerative disc disease. 12. DVT prophylaxis - On enoxaparin Time spent in the patient's overall evaluation,decision-making process, review of diagnostic data, adjustment of management, discussion with other providers, nursing nursing and ancillary staff involved in patient's care documentation, 52. Minutes Charges/Coding Visit Charges Inpatient E&M: 53765 Subs Hosp L3
--- NOTE | 2023-10-14 09:40 | US_ITS ---
INDICATION: abnormal lft EXAMINATION: Ultrasound US Abdomen Limited (quadrant) TECHNIQUE: Hahn scale and color doppler imaging was performed of the right upper quadrant. COMPARISON: CT October 11 2023 FINDINGS: LIVER: 19.6 cm Hepatopedal portal flow. There is normal echotexture. No focal hepatic lesion. There is no free fluid. GALLBLADDER AND BILIARY TREE: Gallbladder is distended with layering sludge small stones.No shadowing gallstone, pericholecystic fluid or gallbladder wall thickening is demonstrated. The proximal common bile duct measures 5 mm which is within normal limits for the patient''s age. Songraphic Nogueira''s sign: none RIGHT KIDNEY: 13.0 cm in length. No hydronephrosis. No shadowing nephrolithiasis. Normal cortical echogenicity without focal thinning or scarring. No evidence of cystic or solid mass. PANCREAS: No focal abnormality is demonstrated in the pancreas. No pancreatic ductal dilatation. US/Abdomen Limited IMPRESSION: Distended gallbladder with cholelithiasis. No sonographic evidence of cholecystitis. Common bile duct is within normal limits, somewhat prominent for age. Correlate with biliary labs for evidence of obstruction. MRCP could further evaluate as clinically indicated. Hepatomegaly. Electronically Signed: Cecilio James MD at 7:03 EDT ,
--- NOTE | 2023-10-14 09:49 | RAD_ITS ---
STUDY: X-RAY CHEST REASON FOR EXAM: Male, 48 years old. Dyspnea TECHNIQUE: Single AP portable view of the chest. COMPARISON: Comparison is made with prior study October 11, 2023. FINDINGS: EKG electrodes are seen. There is elevation of the right hemidiaphragm. Increased markings at the lung bases slightly more prominent on the right side suggestive of bibasilar atelectasis. Normal size heart. Normal mediastinum and nova. Normal visualized pulmonary arteries. Normal visualized aortic arch and descending thoracic aorta. Normal visualized thoracic spine. Normal visualized ribs, clavicles, and shoulders. There is no demonstrated abnormality of the visualized soft tissue structures of the upper abdomen. RAD/Chest 1 View (Portable) IMPRESSION: Mild increased markings at the lung bases slightly worse than on prior study suggestive of bibasilar atelectasis right worse than left. Electronically Signed: Jason Dangelo MD at 10:03 EDT ,
[2023-10-14] MEDS: Furosemide 100 MG/10 ML Vial 80 MG IV (10:18)
[2023-10-14] MEDS: Pantoprazole Sodium 40 MG Tablet PO (10:20)
[2023-10-14] MEDS: Lidocaine 5% Patch 1 PATCH TOPICAL (10:20)
[2023-10-14] MEDS: Enoxaparin 40 MG/0.4 ML Syringe SC (10:26)
[2023-10-14] MEDS: Dextrose 10%-Water 250 ML 999 ML IV ×2 (12:30→17:40)
[2023-10-14 12:32] LABS: Bedside Glucose 64 mg/dL (74-106)
[2023-10-14] MEDS: Acetaminophen 325 MG Tablet 650 MG PO ×2 (12:36→21:41)
--- NOTE | 2023-10-14 13:31 | PCM.CONS.GEN ---
Assessment & Plan Assessment/Plan (1) MSSA bacteremia: PLAN: Unclear source of MSSA bacteremia. TTE showed no veg. On cefazolin. With low back pain, will check L spine MRI. With worsening bili, will check MRCP. Will follow, thank you (2) Polyarthralgia: (3) Lymphedema of leg: (4) Sepsis: HPI Consult Data Date of Consult: 10/14/23 HPI Narrative Reason for Consultation: bacteremia HPI Narrative: SHIV CADET, is a 48 M with chronic lymphedema, DM, presented to ED 10/10 with about 2 weeks progressive low back pain, fever, body aches, n/v, redness in limbs. First noted pain when lifting a case of water up. Developed jaundice, worsening pain, came to ED. Started on vanc/zosyn. Now on cefazolin, sx still progressing. Moving to [facility] now. No drainage from areas of erythema, no recent skin infections. No prior h/o skin abscess. Unable to walk without a lot of assistance, but denies focal weakness or bowel/bladder incontinence. Full ROs performed and neg except as noted above. [facility] Medical History Family history of colon cancer requiring screening colonoscopy Diarrhea Nausea & vomiting Abdominal pain Depression Family history of colon cancer GERD (gastroesophageal reflux disease) Diabetes HTN (hypertension) Home Medications ?Medication ?Instructions ?Recorded ?Last Taken ?Type fluoxetine 40 mg capsule 40 mg PO DAILY 06/23/18 10/11/23 History glimepiride 4 mg tablet 4 mg PO BID 06/23/18 10/11/23 History lisinopril 5 mg tablet 5 mg PO QHS KIDNEYS 06/23/18 10/10/23 History metformin 1,000 mg tablet 1,000 mg PO BID 06/23/18 10/11/23 History insulin glargine 100 unit/mL (3 40 unit subcut QHS DIABETES 10/06/19 10/11/23 History mL) subcutaneous pen meloxicam 15 mg tablet 15 mg PO DAILY PRN pain 10/06/19 Unknown History omeprazole 20 mg capsule,delayed 20 mg PO DAILY 10/06/19 10/11/23 History release cyclobenzaprine 10 mg tablet 10 mg PO TID 10/11/23 Unknown History empagliflozin 25 mg tablet 25 mg PO DAILY 10/11/23 10/11/23 History (Jardiance) fluoxetine 20 mg capsule 20 mg PO DAILY 10/11/23 10/11/23 History gabapentin 300 mg capsule 300 mg PO QHS 10/11/23 10/10/23 History insulin lispro 100 unit/mL 10 unit subcut TID 10/11/23 10/11/23 History subcutaneous pen (Humalog KwikPen (U-100) Insulin) ketorolac 10 mg tablet 10 mg PO TID 10/11/23 10/11/23 History rosuvastatin 5 mg tablet 5 mg PO DAILY 10/11/23 10/11/23 History Allergy/AdvReac Type Severity Reaction Status Date / Time No Known Allergies Allergy Verified 10/11/23 10:41 Family History Brother Colon cancer Mother Hypertension Surgical History No history of previous surgery Social History household members: family housing: house Smoking Status: Never smoker alcohol intake: never substance use type: does not use Physical Exam Const alert and oriented x3 Constitutional Narrative: ill appearing HEENT normocephalic and head/scalp atraumatic Eyes PERRL and EOMs intact bilaterally Neck supple and No nodes Resp normal air movement and clear to auscultation bilaterally Cardio Rate: tachycardic GI soft to palpation, non-tender and non-distended Extremity Extremity Narrative: Redness/swelling/warmth/mild tenderness over L and R wrists, R elbow, bilat ankles. General Extremity: edema Skin Skin Narrative: No splinter hemorrhages on fingers. Toes with onychomycosis. Jaundiced. Neuro CN's II-XII intact bilaterally Lab / Micro Data Attestation: I reviewed the patient's lab results. 10/14/23 05:29 10/14/23 05:29 Labs: Laboratory Results - last 24 hr 10/13/23 14:10: Vancomycin Trough 14.6 10/13/23 21:07: POC Glucose 65 L 10/13/23 22:14: POC Glucose 69 L 10/13/23 22:53: POC Glucose 65 L 10/13/23 23:25: POC Glucose 113 H 10/14/23 05:29: WBC 12.2 H, RBC 3.22 L, Hgb 9.4 L, Hct 27.6 L, MCV 85.7, MCH 29.2, MCHC 34.1, RDW Std Deviation 41.9, RDW Coeff of Hermila 13.5, Plt Count 107 L, MPV 11.2, Immature Gran % (Auto) 1.600 H, Neut % (Auto) 90.3 H, Lymph % (Auto) 4.3 L, [place] % (Auto) 3.1, Eos % (Auto) 0.2, Baso % (Auto) 0.5, Absolute Neuts (auto) 11.0 H, Absolute Lymphs (auto) 0.53 L, Nucleated RBC % 0.2, Differential Comment SCANNED, Sodium 130 L, Potassium 3.7, Chloride 100, Carbon Dioxide 23.0, Anion Gap 7, BUN 25 H, Creatinine 0.97, Estim Creat Clear Calc 112.52, Est GFR (MDRD) Af Amer 107, Est GFR (MDRD) Non-Af 88, BUN/Creatinine Ratio 25.8 H, Glucose 79, Calcium 7.3 L, Total Bilirubin 8.20 H, AST 93 H, ALT 35, Alkaline Phosphatase 146 H, Total Protein 6.0 L, Albumin 1.0 L, Globulin 5.0 H, Albumin/Globulin Ratio 0.2 L 10/14/23 06:40: POC Glucose 84 10/14/23 12:07: POC Glucose 64 L Micro: Microbiology 10/12/23 13:25 Blood Culture (Wb) - Anticubital Left Blood Culture - Final Staphylococcus aureus 10/11/23 13:30 Urine, Clean Catch Urine Culture - Final Staphylococcus aureus Imaging Radiology Impression Echocardiogram 10/12/23 13:00 Interpretation Summary Normal LV size. Left ventricular systolic function is normal. The left ventricular ejection fraction is 60 %. There is no evidence of a mass or vegetation. This does not rule out endocarditis. Ordering Physician: Jacob Rosas Performed By: Brayan Anaya RCS Chest X-Ray 10/14/23 09:49 IMPRESSION: Mild increased markings at the lung bases slightly worse than on prior study suggestive of bibasilar atelectasis right worse than left. Electronically Signed: Jason Dangelo MD at 10:03 EDT ,
--- NOTE | 2023-10-14 13:32 | MRI_ITS ---
INDICATION: jaundice, FEVER EXAMINATION: MRI - MR MRCP W/O Contrast TECHNIQUE: Multiplanar and multisequence MR images of the abdomen were obtained with MRCP sequence. Three-dimensional post-processing reconstructions were performed. IV Contrast Dosage and Agent: None. COMPARISON: CT abdomen and pelvis 10/11/2023, abdominal ultrasound 10/11/2023 FINDINGS: LIVER: No mass. Normal morphology. GALLBLADDER AND BILIARY TREE: Small layering gallstones. No abnormal gallbladder distention or wall thickening. The CBD measures 3 mm. No intra- or extrahepatic biliary dilation. No choledochal filling defect. PANCREAS: No mass. No pancreatic duct dilation. SPLEEN: Mildly enlarged. ADRENAL GLANDS: No nodules. KIDNEYS: Normal renal size and position. No hydronephrosis. No mass. LYMPH NODES: No enlarged periportal or retroperitoneal lymph nodes. PERITONEUM: No ascites or fluid collection. VESSELS: Aorta is non-dilated. LOWER CHEST: No pleural effusion. MRI/MRCP Abdomen without Contrast IMPRESSION: Cholelithiasis without biliary dilatation or choledocholithiasis. Electronically Signed: Tye Sheikh MD at 18:09 EDT ,
--- NOTE | 2023-10-14 13:32 | MRI_ITS ---
ACR Level 3 findings have been noted. An addendum which confirms receipt of the report will follow. STUDY: MRI LUMBAR SPINE WITH AND WITHOUT CONTRAST REASON FOR EXAM: Male, 48 years old. back pain, bacteremia TECHNIQUE: Standardized fat and water weighted pulse sequences were obtained in the sagittal and axial planes. IV CLARISCAN 20ML was administered for the contrast portion of the examination. COMPARISON: CT of abdomen and pelvis dated October 11, 2023. Lumbar spine x-ray dated October 04, 2023 FINDINGS: Acute osteomyelitis and discitis is present at L4-L5 with mild cortical erosion of the endplates on both sides of the disc space, liquefaction of the flattened disc and post contrast enhancement as seen on image 10 series 13. Sequela of prior osteomyelitis is seen at the L3-L4 level but no acute process is demonstrated. Only minimal cortical erosion of the L3-L4 articulating endplates is present from the prior infection. Extruded anterior epidural fluid is seen arising from the L4-L5 disc space extending superiorly to the posterior cortex of L3 and inferiorly/caudally to right above the L5-S1 disc space. There is peripheral enhancement of the infected anterior epidural fluid collection from L3 down L5-S1. The maximum diameter of the epidural fluid is 5.7 mm. A 1.68 cm intramuscular abscess/peripherally enhancing fluid (see image series 10 and series 14) collection is seen in the left paraspinal muscle fibers directly posterior to the L5-S1 facet joint. The fluid is seen originating from the facet joint and extruded into the muscle. There is mild enhancement of the synovium between the facets on the left at L5-S1 but there is no bony destruction or marrow edema to indicate active infection/septic arthritis by MR criteria. Normal lumbar lordosis. There is a levoscoliosis of the lumbar spine. Normal conus medullaris that terminates at the L1 level. No fracture or compression deformity is present. T12-L1: Normal endplates. Normal disc height, hydration and morphology. Normal bilateral facet joints. Normal central canal and bilateral lateral recesses. Normal bilateral intervertebral neural foramina. L1-2: Normal endplates. Normal disc height, hydration and morphology. Normal bilateral facet joints. Normal central canal and bilateral lateral recesses. Normal bilateral intervertebral neural foramina. L2-3: Normal endplates. Normal disc height, hydration and morphology. Normal bilateral facet joints. Normal central canal and bilateral lateral recesses. Normal bilateral intervertebral neural foramina. L3-4: Severe disc space narrowing and Modic endplate degenerative signal. Sequela from prior vertebral osteomyelitis and discitis. Diffuse disc bulge combined with mild facet joint and ligament of flavum hypertrophy causing moderate central canal stenosis when combined with the left posterior lateral epidural fluid collection that is extruded into this region. Moderate bilateral foraminal stenosis with nerve root compression. L4-5: Severe disc space narrowing with a diffuse disc osteophyte complex combined with a left posterior lateral epidural fluid collection that measures 1.21 cm in diameter causing severe central canal stenosis and displacement of the thecal sac to the right of midline. Bilateral lateral recess stenosis is severe with nerve root compression. Severe right foraminal stenosis with nerve root compression with a large right foraminal disc protrusion. Mild to moderate left foraminal stenosis with impingement of the nerve root. L5-S1: Moderate to severe disc space narrowing. Diffuse large diffuse disc bulge in addition to a right paracentral disc protrusion causing right lateral recess stenosis with nerve root compression mild central canal stenosis. Small amount of posterior left lateral epidural fluid is present most likely related to the infection at the L4-L5 level extruded into this region, see image #11/32 series 10. Moderate to severe left foraminal stenosis with nerve root compression due to a posterior disc osteophyte complex projecting into the neural foramen. Normal visualized sacral ala. MRI/Spine Lumbar W/WO Contrast IMPRESSION: 1. Acute osteomyelitis and discitis at L4-L5 with extruded anterior and posterior epidural infectious fluid. The largest fluid collections in the left posterior lateral epidural space measuring 1.21 cm. The posterior epidural fluid collection contributes to central canal stenosis which is severe at L4-L5. 2. Infected/inflamed left facet joint at L5-S1 with extruded fluid into the posterior paraspinal muscle fibers resulting in enhancing intramuscular abscess that measures 1.68 cm in diameter. 3. Multilevel degenerative changes, as described above. Electronically Signed: Tanner Greenberg MD at 18:12 EDT ,
[2023-10-14 13:56] LABS: Bedside Glucose 98 mg/dL (74-106)
--- NOTE | 2023-10-14 14:43 | WOUNDNOTE ---
wound photo: left 2nd toe
--- NOTE | 2023-10-14 14:45 | NUR.TO.PHY ---
skin photo: left arm/hand
--- NOTE | 2023-10-14 14:46 | WOUNDNOTE ---
skin photo: right hand
--- NOTE | 2023-10-14 14:47 | WOUNDNOTE ---
skin photo: right foot/ankle
--- NOTE | 2023-10-14 14:48 | WOUNDNOTE ---
skin photo: right foot
[2023-10-14 15:20] LABS: Pathologist Review Reviewed
[2023-10-14 15:27] LABS: M R Staph aureus DNA By PCR Negative (Negative); Probe Check PASS; Specimen Processing Control PASS; Staph aureus DNA By PCR POSITIVE (Negative)
--- NOTE | 2023-10-14 17:02 | NURSING ---
Called PICC INDRA Herrmann to notify that patient was back from MRI and ready for PICC placement, no answer, left message
[2023-10-14 17:12] LABS: International Normalized Ratio 1.9; Prothrombin Time (Protime)PT. 21.7 SECONDS (11.7-14.9)
[2023-10-14 17:13] LABS: Partial Thromboplast Time 45.8 Seconds (24.1-36.2)
[2023-10-14 17:19] LABS: Fibrinogen 663 mg/dl (203-444)
[2023-10-14 18:05] LABS: Bedside Glucose 64 mg/dL (74-106)
[2023-10-14 18:48] LABS: Bedside Glucose 118 mg/dL (74-106)
[2023-10-14 22:09] LABS: Bedside Glucose 96 mg/dL (74-106)
[2023-10-14] MEDS: 0.9% Normal Saline (250mL Bag) 250 ML 15 ML IV (22:30)
[2023-10-15] VITALS (28 sets, daily range): BP systolic 108–135; BP diastolic 56–83; PULSE 94–108; RESP 22–39; TEMP 37.1–39; O2SAT 94–98; BMI 34.4
--- NOTE | 2023-10-15 01:40 | NURSING ---
As PRN Tylenol was given at 2241, pt packed w/ice bags x5 for coretemp 101.1f.
[2023-10-15] MEDS: Cefazolin 2 GM in 0.9% Normal Saline (100mL Bag) 100 ML IV ×3 (06:20→21:07)
[2023-10-15] MEDS: 0.9% Saline Lock 10 ML Syringe IV ×2 (06:20→10:42)
[2023-10-15 06:35] LABS: Absolute Neutrophil Count 9.2 X10^3/uL (2.0-7.7); Basophil# 0.03 X10^3/uL; Basophil% 0.3 % (0-1); Eosinophil# 0.02 X10^3/uL; Eosinophils% 0.2 % (0-5); Hemoglobin 8.8 g/dL (13.0-16.5); Mean Corp Hgb Conc 33.8 g/dL (32-36); Mean Corpuscular Hgb 28.9 pg (27.0-32.0); Mean Corpuscular Volume 85.5 fL (80-94); Mean Platelet Vol. 10.8 fl (6.2-12.0); Monocyte# 0.26 X10^3/uL; Monocyte% 2.6 % (0-10); NRBC Flagged by Analyzer 0 % (0-5); Neutrophil # 9.22 X10^3/uL (2.7-7.7); Neutrophil % 91.4 % (47-70); POSITIVE DIFFERENTIAL YES; POSITIVE MORPHOLOGY YES; Platelet Count 137 K/mm3 (150-450); RBC Distribution Width CV 13.6 % (11.6-14.6); RBC Distribution Width SD 42.1 fl (35.1-43.9); Red Blood Count 3.04 M/mm3 (4.6-6.2); White Blood Count 10.1 K/mm3 (4.4-11.0)
[2023-10-15 06:38] LABS: Differential Indicated SCAN CRITERIA MET
[2023-10-15 06:55] LABS: AST(SGOT) 102 U/L (15-37); Alanine Aminotransfer ALT/SGPT 28 U/L (16-61); Albumin, Serum 0.9 g/dL (3.2-5.0); Alkaline Phosphatase 142 U/L (45-117); Anion Gap 9 (5-15); BUN 26 mg/dL (7-18); BUN/Creat Ratio 30.7 RATIO (10-20); Calcium,Total 6.7 mg/dL (8.5-10.1); Chloride 100 mmol/L (98-107); Creatinine, Serum 0.85 mg/dL (0.70-1.30); EST Glomerular Filtration Rate 103 mL/min (>60); Est Glom Filt Rate - Afr Amer 125 mL/min (>60); Estimated Creatinine Clearance 128.41 ml/min; Globulin 4.9 g/dL (2.2-4.2); Glucose 49 mg/dL (74-106); Magnesium 2.4 mg/dL (1.6-2.6); Phosphorus 2.8 mg/dL (2.5-4.9); Potassium 3.2 mmol/L (3.5-5.1); Protein, Total 5.8 g/dL (6.4-8.2); Sodium Level 134 mmol/L (136-145)
--- NOTE | 2023-10-15 06:56 | EX.PCM.CONCC ---
Assessment & Plan Assessment/Plan (1) MSSA bacteremia: (2) Sepsis: PLAN: Plan RECOMMENDATIONS: 1. Agree with transfer to tertiary care facility. 2. Continue antimicrobials per ID recommendations. 3. Continue PPI therapy. 4. Basal and sliding scale insulin coverage. 5. Hold Lovenox on account of pending transfer and questionable need for surgical intervention. IMPRESSIONS: 1. MSSA bacteremia The patient presented with sepsis secondary to MSSA bacteremia with radiographic evidence of lumbar spinal osteomyelitis/discitis with associated abscess. The patient remains on antimicrobial therapy per the discretion of infectious diseases. This case was discussed with spine surgery, who ultimately recommended transfer to tertiary care facility for further management/intervention. 2. Anemia/thrombocytopenia/hyperbilirubinemia Initially felt to be the consequence of presenting sepsis. Continue to monitor blood counts and transfuse if hemoglobin drops below 7 g/dL. MRCP was completed and only demonstrated cholelithiasis without any biliary dilation or choledocholithiasis. 3. History of diabetes mellitus/hypertension/hyperlipidemia/GERD/obesity Complicates care, management, recovery and prognosis. Recommend decreasing basal insulin regimen given persistent episodes of hypoglycemia. Remainder of supportive care as noted above. This note was generated with Vouch[employer] dictation software. It may contain incorrect words, spelling, and punctuation that were not noted in checking the note before signing. HPI Consult Data Date of Consult: 10/15/23 HPI Narrative Reason for Consultation: Sepsis HPI Narrative: The patient is a 48-year-old male, with a history as outlined below, who was initially admitted to the hospital on October 10 with back pain, generalized weakness and fatigue. On presentation to the emergency department, the patient was initially documented to be afebrile but was tachycardic, tachypneic and hypotensive with a presenting blood pressure of 86/63 mmHg. His initial laboratory evaluation revealed an elevated white blood cell count of 17,000 with a platelet count of 77,000. Chemistry profile was notable for a sodium of 131, chloride of 93, BUN of 52 and creatinine of 1.79. Lactate was elevated at 4.8. Total bili was increased at 6.1 with an AST of 71 and alkaline phosphatase of 230. Procalcitonin was elevated at 6.16. Urine analysis was positive for leukocyte esterase and 4+ urine bacteria. MRSA screen was positive. CT abdomen/pelvis demonstrated gallstones in the dependent portion of the gallbladder lumen. Subsequent gallbladder ultrasound demonstrated mild thickening of the gallbladder wall. Upper extremity CT was obtained due to swelling and revealed age-indeterminate nondisplaced fracture of the olecranon process. The patient was initially admitted and received the sepsis protocol, which included IV fluid resuscitation and antimicrobial therapy. Further workup revealed that the patient was bacteremic with Staphylococcus aureus isolated from blood cultures. Given these findings, infectious diseases consultation was obtained and MRI L-spine was completed on October 13, which demonstrated osteomyelitis and discitis at the L4/L5 with extrusion anterior and posterior epidural infectious fluid. The posterior epidural fluid collection contributes to central canal stenosis. There was also note of an infected left facet joint at L5/S1 with an associated abscess measuring 1.68 cm in diameter. Given these findings, I called and spoke directly with both Dr. Eddy and Dr. Arnaldo Torres (spine surgery) regarding these findings. Both Drs. Mcintosh and Surjit were in agreement that the patient needed to be transferred to a tertiary care facility for further management, after reviewing the MRI findings. [facility] Medical History Family history of colon cancer requiring screening colonoscopy Diarrhea Nausea & vomiting Abdominal pain Depression Family history of colon cancer GERD (gastroesophageal reflux disease) Diabetes HTN (hypertension) Home Medications ?Medication ?Instructions ?Recorded ?Last Taken ?Type fluoxetine 40 mg capsule 40 mg PO DAILY 06/23/18 10/11/23 History glimepiride 4 mg tablet 4 mg PO BID 06/23/18 10/11/23 History lisinopril 5 mg tablet 5 mg PO QHS KIDNEYS 06/23/18 10/10/23 History metformin 1,000 mg tablet 1,000 mg PO BID 06/23/18 10/11/23 History insulin glargine 100 unit/mL (3 40 unit subcut QHS DIABETES 10/06/19 10/11/23 History mL) subcutaneous pen meloxicam 15 mg tablet 15 mg PO DAILY PRN pain 10/06/19 Unknown History omeprazole 20 mg capsule,delayed 20 mg PO DAILY 10/06/19 10/11/23 History release cyclobenzaprine 10 mg tablet 10 mg PO TID 10/11/23 Unknown History empagliflozin 25 mg tablet 25 mg PO DAILY 10/11/23 10/11/23 History (Jardiance) fluoxetine 20 mg capsule 20 mg PO DAILY 10/11/23 10/11/23 History gabapentin 300 mg capsule 300 mg PO QHS 10/11/23 10/10/23 History insulin lispro 100 unit/mL 10 unit subcut TID 10/11/23 10/11/23 History subcutaneous pen (Humalog KwikPen (U-100) Insulin) ketorolac 10 mg tablet 10 mg PO TID 10/11/23 10/11/23 History rosuvastatin 5 mg tablet 5 mg PO DAILY 10/11/23 10/11/23 History Cefazolin 2 gm 150 mls/hr IV Q8 10/15/23 Unknown Rx Allergy/AdvReac Type Severity Reaction Status Date / Time No Known Allergies Allergy Verified 10/11/23 10:41 Family History Brother Colon cancer Mother Hypertension Surgical History No history of previous surgery Social History household members: family housing: house Smoking Status: Never smoker alcohol intake: never substance use type: does not use ROS ROS Narrative 10 systems were reviewed with pertinent positives as noted in the HPI above. Physical Exam Const alert Constitutional Narrative: Jaundiced in appearance. General Appearance: cooperative and ill appearing HEENT normocephalic and head/scalp atraumatic Eyes PERRL and EOMs intact bilaterally Neck supple General: trachea midline Chest inspection of chest normal Resp normal respiratory effort Effort and Inspection: tachypneic Auscultation: diminished lung sounds Cardio regular rate and regular rhythm GI normal to inspection, nondistended, normoactive bowel sounds Extremity General Extremity: edema bilateral upper extremity and lower extremity Neuro oriented x3 and CN's II-XII intact bilaterally Psych cooperative and affect normal Lab / Micro Data 10/15/23 06:20 10/15/23 06:20 Labs: Laboratory Results - last 24 hr 10/11/23 11:10: Diff Path Review Reviewed 10/14/23 06:40: POC Glucose 84 10/14/23 12:07: POC Glucose 64 L 10/14/23 13:10: S.aureus Protein A PCR POSITIVE H, MRSA (PCR) Negative 10/14/23 13:37: POC Glucose 98 10/14/23 16:45: PT 21.7 H, INR 1.9, APTT 45.8 H, Fibrinogen 663 H 10/14/23 17:26: POC Glucose 64 L 10/14/23 18:25: POC Glucose 118 H 10/14/23 21:40: POC Glucose 96 10/15/23 06:20: WBC 10.1, RBC 3.04 L, Hgb 8.8 L, Hct 26.0 L, MCV 85.5, MCH 28.9, MCHC 33.8, RDW Std Deviation 42.1, RDW Coeff of Hermila 13.6, Plt Count 137 L, MPV 10.8, Immature Gran % (Auto) 1.500 H, Neut % (Auto) 91.4 H, Lymph % (Auto) 4.0 L, [place] % (Auto) 2.6, Eos % (Auto) 0.2, Baso % (Auto) 0.3, Absolute Neuts (auto) 9.2 H, Absolute Lymphs (auto) 0.40 L, Nucleated RBC % 0, Sodium 134 L, Potassium 3.2 L, Chloride 100, Carbon Dioxide 25.0, Anion Gap 9, BUN 26 H, Creatinine 0.85, Estim Creat Clear Calc 128.41, Est GFR (MDRD) Af Amer 125, Est GFR (MDRD) Non-Af 103, BUN/Creatinine Ratio 30.7 H, Glucose 49 L, Calcium 6.7 L, Phosphorus 2.8, Magnesium 2.4, Total Bilirubin 7.70 H, Direct Bilirubin 6.70 H, AST 102 H, ALT 28, Alkaline Phosphatase 142 H, Total Protein 5.8 L, Albumin 0.9 L, Globulin 4.9 H Micro: Microbiology 10/12/23 13:25 Blood Culture (Wb) - Anticubital Left Blood Culture - Final Staphylococcus aureus Imaging Radiology Impression Echocardiogram 10/12/23 13:00 Interpretation Summary Normal LV size. Left ventricular systolic function is normal. The left ventricular ejection fraction is 60 %. There is no evidence of a mass or vegetation. This does not rule out endocarditis. Ordering Physician: Jacob Rosas Performed By: Brayan Anaya RCS Chest X-Ray 10/14/23 09:49 IMPRESSION: Mild increased markings at the lung bases slightly worse than on prior study suggestive of bibasilar atelectasis right worse than left. Electronically Signed: Jason Dangelo MD at 10:03 EDT , MRCP 10/14/23 13:32 IMPRESSION: Cholelithiasis without biliary dilatation or choledocholithiasis. Electronically Signed: Tye Sheikh MD at 18:09 EDT , Lumbar Spine MRI 10/14/23 13:32 IMPRESSION: 1. Acute osteomyelitis and discitis at L4-L5 with extruded anterior and posterior epidural infectious fluid. The largest fluid collections in the left posterior lateral epidural space measuring 1.21 cm. The posterior epidural fluid collection contributes to central canal stenosis which is severe at L4-L5. 2. Infected/inflamed left facet joint at L5-S1 with extruded fluid into the posterior paraspinal muscle fibers resulting in enhancing intramuscular abscess that measures 1.68 cm in diameter. 3. Multilevel degenerative changes, as described above. Electronically Signed: Tanner Greenberg MD at 18:12 EDT , ADDENDUM: 10/14/23 1840 IMPRESSION: 1. Acute osteomyelitis and discitis at L4-L5 with extruded anterior and posterior epidural infectious fluid. The largest fluid collections in the left posterior lateral epidural space measuring 1.21 cm. The posterior epidural fluid collection contributes to central canal stenosis which is severe at L4-L5. 2. Infected/inflamed left facet joint at L5-S1 with extruded fluid into the posterior paraspinal muscle fibers resulting in enhancing intramuscular abscess that measures 1.68 cm in diameter. 3. Multilevel degenerative changes, as described above. N.B. : Lyle Aponte RN, confirmed on 10/14/2023 18:33:48 (ET) that the healthcare facility has received the radiology report. Electronically Signed: Tanner Greenberg MD at 18:12 EDT , Charges/Coding Visit Charges Inpatient E&M: 52946 Init Hosp L3
[2023-10-15 07:16] LABS: Differential Comment SCANNED
[2023-10-15] MEDS: Dextrose 10%-Water 250 ML 999 ML IV (07:23)
--- NOTE | 2023-10-15 07:23 | PCM.DC.SUM ---
Providers Date of Admission: 10/11/23 Primary Care Physician: Dr. Catarino Sanchez MD Consultations 10/11/23 16:46 Consult: Nurse Practitioner Hospitalist / Pulmonary Medicine Routine Consulting Provider: Intensivists/Pulmonary Med Reason for Consult: sepsis EMERGENT Consult: No Notified: Yes Date Notified: 10/11/23 Time Notified: 15:11 Method of Notification: Text 10/11/23 17:38 Consult: Onc/Wound/explosive operator fuse Routine Comment: Consult: Podiatry Routine Consulting Provider: Anusha Amador Reason for Consult: Diabetic foot wound EMERGENT Consult: No Notified: Yes Date Notified: 10/11/23 Time Notified: 17:38 Method of Notification: Verbal 10/13/23 09:24 Consult: Infectious Disease Routine Consulting Provider: Mateus Pickard Reason for Consult: Staph bacteremia with polyarticular spread EMERGENT Consult: No Notified: Yes Date Notified: 10/14/23 Time Notified: 06:46 Method of Notification: Text 10/14/23 09:20 Consult: Gastroenterology Routine Consulting Provider: [facility] Reason for Consult: abnormal lft EMERGENT Consult: No Notified: Yes Date Notified: 10/14/23 Time Notified: 09:20 Method of Notification: Text 10/14/23 13:46 Consult: General Surgery Routine Consulting Provider: Markell Albert Reason for Consult: jose elias EMERGENT Consult: No Notified: Yes Date Notified: 10/14/23 Time Notified: 13:46 Method of Notification: Verbal 10/15/23 07:09 Consult: Orthopedics Routine Consulting Provider: Arnaldo Torres Reason for Consult: Spinal Osteomyelitis/abscess EMERGENT Consult: Yes MD Notified: Yes Date Notified: 10/15/23 Time Notified: 07:10 Method of Notification: Verbal Reason For Visit: SEPSIS 2/2 UTI Diagnosis Discharge Diagnosis (1) MSSA bacteremia: Status: Acute Code(s): R78.81 - Bacteremia; B95.61 - Methicillin susceptible Staphylococcus aureus infection as the cause of diseases classified elsewhere (2) Polyarthralgia: Status: Acute Code(s): M25.50 - Pain in unspecified joint (3) Lymphedema of leg: Status: Acute Code(s): I89.0 - Lymphedema, not elsewhere classified (4) Sepsis: Status: Acute Code(s): A41.9 - Sepsis, unspecified organism Plan Patient is a 48-year-old gentleman on admission with sepsis secondary to staph bacteremia as well as acute kidney injury 1. Sepsis ? Staph bacteremia. There is concern for possible polyarticular spread with patient complaining of joint stiffness. A transthoracic echo has been ordered if nondiagnostic will obtain BETHANIE. Repeat blood cultures sent consult placed to ID ? Subsequent imaging studies with MRCP as well as MRI of the lumbar spine did not demonstrate presence of discitis as well as epidural abscess. Details of lumbar MRI findings as below Acute osteomyelitis and discitis at L4-L5 with extruded anterior and posterior epidural infectious fluid. The largest fluid collections in the left posterior lateral epidural space measuring 1.21 cm. The posterior epidural fluid collection contributes to central canal stenosis which is severe at L4-L5. 2. Infected/inflamed left facet joint at L5-S1 with extruded fluid into the posterior paraspinal muscle fibers resulting in enhancing intramuscular abscess that measures 1.68 cm in diameter. Based on the above finding call was placed to [facility] to have patient transferred for neurosurgery evaluation 2. Abnormal LFTs ? Patient has significant hyperbilirubinemia with elevated With mildly elevated transaminases. Patient denies alcohol use. Right upper quadrant ultrasound ordered did show Multiple gallstones. Mild hepatomegaly. Mild thickening of the gallbladder wall consult placed to GI 3. Diabetic foot ulcer involving the left second digit ? Podiatry consulted patient had bedside wound debridement 4. Diabetes mellitus type II -patient's oral hypoglycemics held. Placed on long acting insulin, Accu-Cheks a.c. and at bedtime and covered with sliding scale insulin 5. Right elbow swelling ? Imaging studies obtained demonstrate subtle age indeterminate nondisplaced fracture of the olecranon process. Mild subcutaneous edema surrounding the elbow. 6. Dyslipidemia -Patient is on statin therapy, continued at home dose 7. GERD ? On PPI 8. Acute kidney injury?present on admission ? Resolved 9. Hypertension - Blood pressure controlled, home medications continued with dose adjustment as needed 10. Hyponatremia ?Ordered urine osmole, serum osmole as well as urine sodium level as part of evaluation 11. Mild S-shaped scoliosis with degenerative disc disease. 12. DVT prophylaxis - On enoxaparin Time spent in the patient's overall evaluation,decision-making process, review of diagnostic data, adjustment of management, discussion with other providers, nursing nursing and ancillary staff involved in patient's care documentation, 50 Minutes Medications at Discharge Home Medications fluoxetine 40 mg capsule 40 mg PO DAILY 06/23/18 glimepiride 4 mg tablet 4 mg PO BID 06/23/18 lisinopril 5 mg tablet 5 mg PO QHS KIDNEYS 06/23/18 metformin 1,000 mg tablet 1,000 mg PO BID 06/23/18 insulin glargine 100 unit/mL (3 mL) subcutaneous pen 40 unit subcut QHS DIABETES 10/06/19 meloxicam 15 mg tablet 15 mg PO DAILY PRN pain 10/06/19 omeprazole 20 mg capsule,delayed release 20 mg PO DAILY 10/06/19 cyclobenzaprine 10 mg tablet 10 mg PO TID 10/11/23 empagliflozin 25 mg tablet (Jardiance) 25 mg PO DAILY 10/11/23 fluoxetine 20 mg capsule 20 mg PO DAILY 10/11/23 gabapentin 300 mg capsule 300 mg PO QHS 10/11/23 insulin lispro 100 unit/mL subcutaneous pen (Humalog KwikPen (U-100) Insulin) 10 unit subcut TID 10/11/23 ketorolac 10 mg tablet 10 mg PO TID 10/11/23 rosuvastatin 5 mg tablet 5 mg PO DAILY 10/11/23 Cefazolin 2 gm 150 mls/hr IV Q8 10/15/23 Physical Exam Narrative GENERAL: cooperative HEENT: Atraumatic; normocephalic EYES; icteric, Normal Conjunctiva NECK; supple, normal thyroid, RESPIRATORY: Diminished to auscultation CARDIOVASCULAR: Regular S1 S2, GI: soft, normoactive bowel sounds, : No Renal angle tenderness; EXTREMITIES: edema, no clubbing, MUSCULOSKELETAL: Swelling in right elbow and wrist with restricted movement NEURO: Awake; no lateralizing signs. SKIN: No Rash PSYCH; Flat affect Weight / BMI Weight Weight: 105.2 kg Body Mass Index (BMI) 34.3 ABG / Lab / Microbiology Data 10/16/23 05:25 10/16/23 05:25 Laboratory: Laboratory Results - last 24 hr 10/11/23 11:10: Diff Path Review Reviewed 10/14/23 12:07: POC Glucose 64 L 10/14/23 13:10: S.aureus Protein A PCR POSITIVE H, MRSA (PCR) Negative 10/14/23 13:37: POC Glucose 98 10/14/23 16:45: PT 21.7 H, INR 1.9, APTT 45.8 H, Fibrinogen 663 H 10/14/23 17:26: POC Glucose 64 L 10/14/23 18:25: POC Glucose 118 H 10/14/23 21:40: POC Glucose 96 10/15/23 06:20: WBC 10.1, RBC 3.04 L, Hgb 8.8 L, Hct 26.0 L, MCV 85.5, MCH 28.9, MCHC 33.8, RDW Std Deviation 42.1, RDW Coeff of Hermila 13.6, Plt Count 137 L, MPV 10.8, Immature Gran % (Auto) 1.500 H, Neut % (Auto) 91.4 H, Lymph % (Auto) 4.0 L, [place] % (Auto) 2.6, Eos % (Auto) 0.2, Baso % (Auto) 0.3, Absolute Neuts (auto) 9.2 H, Absolute Lymphs (auto) 0.40 L, Nucleated RBC % 0, Differential Comment SCANNED, Sodium 134 L, Potassium 3.2 L, Chloride 100, Carbon Dioxide 25.0, Anion Gap 9, BUN 26 H, Creatinine 0.85, Estim Creat Clear Calc 128.41, Est GFR (MDRD) Af Amer 125, Est GFR (MDRD) Non-Af 103, BUN/Creatinine Ratio 30.7 H, Glucose 49 L, Calcium 6.7 L, Phosphorus 2.8, Magnesium 2.4, Total Bilirubin 7.70 H, Direct Bilirubin 6.70 H, AST 102 H, ALT 28, Alkaline Phosphatase 142 H, Total Protein 5.8 L, Albumin 0.9 L, Globulin 4.9 H Microbiology: Microbiology 10/12/23 13:25 Blood Culture (Wb) - Anticubital Left Blood Culture - Final Staphylococcus aureus 10/11/23 13:30 Urine, Clean Catch Urine Culture - Final Staphylococcus aureus 10/11/23 13:10 Blood Culture (Wb) - Anticubital Right Bacteria Detection (PCR) - Final Staphylococcus aureus 10/11/23 13:10 Blood Culture (Wb) - Anticubital Right Blood Culture - Final Staphylococcus aureus Radiography Diagnostic Testing: Radiology Impression Echocardiogram 10/12/23 13:00 Interpretation Summary Normal LV size. Left ventricular systolic function is normal. The left ventricular ejection fraction is 60 %. There is no evidence of a mass or vegetation. This does not rule out endocarditis. Ordering Physician: Jacob Rosas Performed By: Brayan Anaya RCS Abdomen Ultrasound 10/14/23 09:40 IMPRESSION: Distended gallbladder with cholelithiasis. No sonographic evidence of cholecystitis. Common bile duct is within normal limits, somewhat prominent for age. Correlate with biliary labs for evidence of obstruction. MRCP could further evaluate as clinically indicated. Hepatomegaly. Electronically Signed: Cecilio James MD at 7:03 EDT , Chest X-Ray 10/14/23 09:49 IMPRESSION: Mild increased markings at the lung bases slightly worse than on prior study suggestive of bibasilar atelectasis right worse than left. Electronically Signed: Jason Dangelo MD at 10:03 EDT , MRCP 10/14/23 13:32 IMPRESSION: Cholelithiasis without biliary dilatation or choledocholithiasis. Electronically Signed: Tye Sheikh MD at 18:09 EDT , Lumbar Spine MRI 10/14/23 13:32 IMPRESSION: 1. Acute osteomyelitis and discitis at L4-L5 with extruded anterior and posterior epidural infectious fluid. The largest fluid collections in the left posterior lateral epidural space measuring 1.21 cm. The posterior epidural fluid collection contributes to central canal stenosis which is severe at L4-L5. 2. Infected/inflamed left facet joint at L5-S1 with extruded fluid into the posterior paraspinal muscle fibers resulting in enhancing intramuscular abscess that measures 1.68 cm in diameter. 3. Multilevel degenerative changes, as described above. Electronically Signed: Tanner Greenberg MD at 18:12 EDT Reading Location ID and State: [facility] / [place] , Service support , ADDENDUM: 10/14/23 1840 IMPRESSION: 1. Acute osteomyelitis and discitis at L4-L5 with extruded anterior and posterior epidural infectious fluid. The largest fluid collections in the left posterior lateral epidural space measuring 1.21 cm. The posterior epidural fluid collection contributes to central canal stenosis which is severe at L4-L5. 2. Infected/inflamed left facet joint at L5-S1 with extruded fluid into the posterior paraspinal muscle fibers resulting in enhancing intramuscular abscess that measures 1.68 cm in diameter. 3. Multilevel degenerative changes, as described above. N.B. : Lyle Aponte RN, confirmed on 10/14/2023 18:33:48 (ET) that the healthcare facility has received the radiology report. Electronically Signed: Tanner Greenberg MD at 18:12 EDT , D/C Instructions Discharge Diet: 1800 Calorie Control Diet Discharge Activity: Return to Normal Activity Call your doctor if you observe: Fever of 101 or Higher, Shortness of breath, Fainting spells and Chest pain Meaningful Use Info Meaningful Use Meaningful Use Diagnoses (Choose all that apply): None applicable Ischemic Stroke Statin Dosing Therapy Reference: STATIN DOSE THERAPY REFERENCE: * Patients > 75 years receive moderate or high dose statin therapy. * Patients 75 years or YOUNGER should receive HIGH intensity statin dose unless contraindicated. You will be required to document reason for non-treatment if statin daily dose does not meet guidelines. HIGH DOSE STATIN THERAPY DAILY Atorvastatin > than or = to 40 mg Rosuvastatin > than or = to 20 mg Amlodipine + Atorvastatin > than or = to 2.5/40 mg Ezetimibe + Simvastatin 10/80 mg Simvastatin 80mg Discharge Plan Admission Admit Date/Time: 10/11/23 15:08 Attending Provider: Milton Pineda Primary Care Provider: Catarino Sanchez Consulting Providers: Ashley Coles; Jacob Rosas; Mateus Pickard; Fabian Pham; Chaz Correia; Jarod Traore; Nadir Cruz; Gerhard Hazel; Nikole Bagley; Jono Baires; Salbador Sultana; Maryellen Go; Omar Modi; Marc West; Chilo Fitzpatrick; Mike Blas; Zeferino Bob; Vishnu Pham; Anusha Amador; Markell Albert; Arnaldo Torres Discharge Orders/Prescriptions Prescriptions: New Cefazolin 2 GM 0.9% Normal Saline (100mL Bag) 100 ML 150 mls/hr IV Q8 Ordered By: Milton Pineda MD Last Taken: 10/16/23 12:51 150 mls/hr Continued metformin 1,000 mg tablet 1,000 mg PO BID fluoxetine 40 mg capsule 40 mg PO DAILY Patient Comments: PT TAKES 20MG WITH 40MG TO EQUAL TOTAL DOSE OF 60MG glimepiride 4 mg tablet 4 mg PO BID lisinopril 5 mg tablet 5 mg PO QHS meloxicam 15 mg tablet 15 mg PO DAILY PRN (Reason: pain) omeprazole 20 mg capsule,delayed release(DR/EC) 20 mg PO DAILY insulin glargine 100 unit/mL (3 mL) insulin pen 40 unit subcut QHS cyclobenzaprine 10 mg tablet 10 mg PO TID gabapentin 300 mg capsule 300 mg PO QHS insulin lispro [Humalog KwikPen Insulin] 100 unit/mL insulin pen 10 unit subcut TID rosuvastatin 5 mg tablet 5 mg PO DAILY Jardiance 25 mg tablet 25 mg PO DAILY fluoxetine 20 mg capsule 20 mg PO DAILY Patient Comments: PT TAKES 20MG WITH 40MG TO EQUAL TOTAL DOSE OF 60MG ketorolac 10 mg tablet 10 mg PO TID Referrals / Follow Up: Catarino Sanchez MD [Primary Care Provider] - Within 2 Weeks Disposition Disposition (needs filled in before D/C Order can be placed): Acute Care Hospital Charges/Coding Visit Charges Inpatient E&M: 10952 Disch Hosp >30min
[2023-10-15 07:39] LABS: Bedside Glucose 40 mg/dL (74-106)
[2023-10-15] MEDS: Pantoprazole Sodium 40 MG Tablet PO (08:13)
[2023-10-15] MEDS: Potassium Chloride Oral Tablet 20 MEQ 40 MEQ PO (08:13)
--- NOTE | 2023-10-15 08:37 | CASEMGMT ---
Insurance review for hospitals In-network with?[employer] insurance if transfer is recommended is as follows; JADEN Nieves, [place], [facility], [facility], [facility], [facility], [facility], [facility] ([facility]), and . Mireya Espinal, Discharge Planning Asst.
[2023-10-15 08:48] LABS: Bedside Glucose 90 mg/dL (74-106)
[2023-10-15] MEDS: Acetaminophen 325 MG Tablet 650 MG PO ×2 (09:32→18:55)
--- NOTE | 2023-10-15 09:33 | CASEMGMT ---
Social Work SW participated in ICU rounds. Pt is to be transferred to [facility] when tehre is a bed available. SW met w/pt and in room, offered support. states they have a lot of family support, and a good shelton, and this is helping. SW remains available for support to pt and family as needed. KELLI Corbin
--- NOTE | 2023-10-15 10:15 | PCM.PN.ID ---
Physical Exam Narrative Feeling a little better. Fever throughout the night. No weakness in legs. R wrist and feet sore. C/o some dark floaters in both eyes (5-10), some blurry vision that is new. No areas of darkness in vision. Const alert and no apparent distress General Appearance: cooperative Resp normal air movement and clear to auscultation bilaterally Cardio Rate: tachycardic GI soft to palpation, non-tender and non-distended Extremity General Extremity: edema Skin Skin Narrative: Jaundiced. Redness, warmth, pain over R wrist, L forearm, bilat ankles. ID ID: Route of nutrition/ use of supplements: [] Nutritional Intake: [] IV Site: [] Montoya Catheter: [] Assessment & Plan Assessment/Plan (1) MSSA bacteremia: PLAN: Unclear source of MSSA bacteremia, has healing wound on L toe. MRI shows L4-5 discitis and osteo with epidural abscess. Transfer planned for spine surgery eval. On cefazolin. Will repeat bcx. Concern for metastatic infection to R wrist, L forearm, and R ankle. L foot also inflammed. Will need ortho eval. Tbili is slightly better, hgb cont to drop. TTE showed no veg. Likely will need BETHANIE. Will check LDH and haptoglobin. MRCP showed stones. Will follow, d/w nursing (2) Polyarthralgia: (3) Lymphedema of leg: (4) Sepsis:
[2023-10-15 10:41] LABS: LDH 225 U/L (87-241)
[2023-10-15 11:00] LABS: Bedside Glucose 118 mg/dL (74-106)
[2023-10-15] MEDS: Senna/Docusate Sodium 1 Tablet 2 TABLET PO (14:22)
--- NOTE | 2023-10-15 15:17 | CASEMGMT ---
Social Work Pt has not completed LW/POA. SW provided to pt and blank copies of LW/POA to them, reviewed POA document. SW gave them the number to the SW dept should pt want to complete the documents at a later time. KELLI Corbin
[2023-10-15 16:03] LABS: Bedside Glucose 139 mg/dL (74-106)
--- NOTE | 2023-10-15 16:39 | PN.HOSP_ITS ---
Reason for Visit Reason for Visit: Diagnoses Sepsis, unspecified organism (10/11/23) Tinea unguium (10/11/23) Methicillin susceptible Staphylococcus aureus infection as the cause of diseases classified elsewhere (10/11/23) Thrombocytopenia, unspecified (10/11/23) Elevated white blood cell count, unspecified (10/11/23) Diabetes mellitus due to underlying condition with foot ulcer (10/11/23) Other disorders of bilirubin metabolism (10/11/23) Dehydration (10/11/23) Hypo-osmolality and hyponatremia (10/11/23) Acidosis, unspecified (10/11/23) Lymphedema, not elsewhere classified (10/11/23) Hypotension, unspecified (10/11/23) Non-pressure chronic ulcer of other part of unspecified foot limited to breakdown of skin (10/11/23) Other hammer toe(s) (acquired), right foot (10/11/23) Other hammer toe(s) (acquired), left foot (10/11/23) Effusion, right elbow (10/11/23) Pain in unspecified joint (10/11/23) Other specified soft tissue disorders (10/11/23) Acute kidney failure, unspecified (10/11/23) Urinary tract infection, site not specified (10/11/23) Tachycardia, unspecified (10/11/23) Tachypnea, not elsewhere classified (10/11/23) Bacteremia (10/11/23) Subjective Subjective Patient imaging studies demonstrated features consistent with discitis with epidural abscess. leilani has been initiated for patient to be transferred to [facility] Objective Data Objective Data Vital Signs: Vital Signs Temp Pulse Resp BP Pulse Ox O2 Del Method O2 Flow Rate 99.7 F H 100 28 H 129/75 H 96 Nasal Cannula 1 10/15/23 16:00 10/15/23 16:00 10/15/23 16:00 10/15/23 16:00 10/15/23 16:00 10/15/23 16:00 10/15/23 16:00 FiO2 95 10/13/23 14:00 Oxygen Flow Rate (L/min) 1 Oxygen Delivery Method Nasal Cannula Weight: 105.7 kg Body Mass Index (BMI) 34.4 Intake & Output: Intake and Output for Last 24 Hours 10/13/23 10/14/23 10/15/23 23:59 23:59 23:59 Intake Total 4672.08 / 4972.08 2860.00 / 2860.00 2534.75 / 2534.75 Output Total 3800 / 4150 5275 / 5275 2049 / 2049 Balance 872.08 / 822.08 -2415.00 / -2415.00 484.75 / 484.75 Lab / Micro Data 10/16/23 05:25 10/16/23 05:25 Labs: Laboratory Results - last 24 hr 10/14/23 16:45: PT 21.7 H, INR 1.9, APTT 45.8 H, Fibrinogen 663 H 10/14/23 17:26: POC Glucose 64 L 10/14/23 18:25: POC Glucose 118 H 10/14/23 21:40: POC Glucose 96 10/15/23 06:20: WBC 10.1, RBC 3.04 L, Hgb 8.8 L, Hct 26.0 L, MCV 85.5, MCH 28.9, MCHC 33.8, RDW Std Deviation 42.1, RDW Coeff of Hermila 13.6, Plt Count 137 L, MPV 10.8, Immature Gran % (Auto) 1.500 H, Neut % (Auto) 91.4 H, Lymph % (Auto) 4.0 L , [place] % (Auto) 2.6, Eos % (Auto) 0.2, Baso % (Auto) 0.3, Absolute Neuts (auto) 9.2 H, Absolute Lymphs (auto) 0.40 L, Nucleated RBC % 0, Differential Comment SCANNED, Sodium 134 L, Potassium 3.2 L, Chloride 100, Carbon Dioxide 25.0, Anion Gap 9, BUN 26 H, Creatinine 0.85, Estim Creat Clear Calc 128.41, Est GFR (MDRD) Af Amer 125, Est GFR (MDRD) Non-Af 103, BUN/Creatinine Ratio 30.7 H, Glucose 49 L, Calcium 6.7 L, Phosphorus 2.8, Magnesium 2.4, Total Bilirubin 7.70 H, Direct Bilirubin 6.70 H, AST 102 H, ALT 28, Alkaline Phosphatase 142 H, Lactate Dehydrogenase 225, Total Protein 5.8 L, Albumin 0.9 L, Globulin 4.9 H 10/15/23 07:20: POC Glucose 40 L* 10/15/23 07:59: POC Glucose 90 10/15/23 10:36: POC Glucose 118 H 10/15/23 15:43: POC Glucose 139 H Micro: Microbiology 10/14/23 13:10 Wound - Left Foot Gram Stain - Final 10/14/23 13:10 Wound - Left Foot Wound Culture - Preliminary No growth-Final to follow 10/12/23 13:25 Blood Culture (Wb) - Anticubital Left Blood Culture - Final Staphylococcus aureus 10/11/23 13:30 Urine, Clean Catch Urine Culture - Final Staphylococcus aureus 10/11/23 13:10 Blood Culture (Wb) - Anticubital Right Bacteria Detection (PCR) - Final Staphylococcus aureus 10/11/23 13:10 Blood Culture (Wb) - Anticubital Right Blood Culture - Final Staphylococcus aureus Radiography Diagnostic Testing: Radiology Impression Abdomen Ultrasound 10/14/23 09:40 IMPRESSION: Distended gallbladder with cholelithiasis. No sonographic evidence of cholecystitis. Common bile duct is within normal limits, somewhat prominent for age. Correlate with biliary labs for evidence of obstruction. MRCP could further evaluate as clinically indicated. Hepatomegaly. Electronically Signed: Cecilio James MD at 7:03 EDT , MRCP 10/14/23 13:32 IMPRESSION: Cholelithiasis without biliary dilatation or choledocholithiasis. Electronically Signed: Tye Sheikh MD at 18:09 EDT , Lumbar Spine MRI 10/14/23 13:32 IMPRESSION: 1. Acute osteomyelitis and discitis at L4-L5 with extruded anterior and posterior epidural infectious fluid. The largest fluid collections in the left posterior lateral epidural space measuring 1.21 cm. The posterior epidural fluid collection contributes to central canal stenosis which is severe at L4-L5. 2. Infected/inflamed left facet joint at L5-S1 with extruded fluid into the posterior paraspinal muscle fibers resulting in enhancing intramuscular abscess that measures 1.68 cm in diameter. 3. Multilevel degenerative changes, as described above. Electronically Signed: Tanner Greenberg MD at 18:12 EDT , ADDENDUM: 10/14/23 1840 IMPRESSION: 1. Acute osteomyelitis and discitis at L4-L5 with extruded anterior and posterior epidural infectious fluid. The largest fluid collections in the left posterior lateral epidural space measuring 1.21 cm. The posterior epidural fluid collection contributes to central canal stenosis which is severe at L4-L5. 2. Infected/inflamed left facet joint at L5-S1 with extruded fluid into the posterior paraspinal muscle fibers resulting in enhancing intramuscular abscess that measures 1.68 cm in diameter. 3. Multilevel degenerative changes, as described above. N.B. : Lyle Aponte RN, confirmed on 10/14/2023 18:33:48 (ET) that the healthcare facility has received the radiology report. Electronically Signed: Tanner Greenberg MD at 18:12 EDT , Physical Exam Narrative GENERAL: cooperative HEENT: Atraumatic; normocephalic EYES; icteric, Normal Conjunctiva NECK; supple, normal thyroid, RESPIRATORY: Diminished to auscultation CARDIOVASCULAR: Regular S1 S2, GI: soft, normoactive bowel sounds, : No Renal angle tenderness; EXTREMITIES: edema, no clubbing, MUSCULOSKELETAL: Swelling in right elbow and wrist with restricted movement NEURO: Awake; no lateralizing signs. SKIN: No Rash PSYCH; Flat affect Assessment & Plan Assessment/Plan (1) MSSA bacteremia: (2) Polyarthralgia: (3) Lymphedema of leg: (4) Sepsis: PLAN: Plan Patient is a 48-year-old gentleman on admission with sepsis secondary to staph bacteremia as well as acute kidney injury 1. Sepsis ? Staph bacteremia. There is concern for possible polyarticular spread with patient complaining of joint stiffness. A transthoracic echo has been ordered if nondiagnostic will obtain BETHANIE. Repeat blood cultures sent consult placed to ID ? Subsequent imaging studies with MRCP as well as MRI of the lumbar spine did not demonstrate presence of discitis as well as epidural abscess. Details of lumbar MRI findings as below Acute osteomyelitis and discitis at L4-L5 with extruded anterior and posterior epidural infectious fluid. The largest fluid collections in the left posterior lateral epidural space measuring 1.21 cm. The posterior epidural fluid collection contributes to central canal stenosis which is severe at L4-L5. 2. Infected/inflamed left facet joint at L5-S1 with extruded fluid into the posterior paraspinal muscle fibers resulting in enhancing intramuscular abscess that measures 1.68 cm in diameter. Based on the above finding call was placed to [facility] to have patient transferred for neurosurgery evaluation 2. Abnormal LFTs ? Patient has significant hyperbilirubinemia with elevated With mildly elevated transaminases. Patient denies alcohol use. Right upper quadrant ultrasound ordered did show Multiple gallstones. Mild hepatomegaly. Mild thickening of the gallbladder wall consult placed to GI 3. Diabetic foot ulcer involving the left second digit ? Podiatry consulted patient had bedside wound debridement 4. Diabetes mellitus type II -patient's oral hypoglycemics held. Placed on long acting insulin, Accu-Cheks a.c. and at bedtime and covered with sliding scale insulin 5. Right elbow swelling ? Imaging studies obtained demonstrate subtle age indeterminate nondisplaced fracture of the olecranon process. Mild subcutaneous edema surrounding the elbow. 6. Dyslipidemia -Patient is on statin therapy, continued at home dose 7. GERD ? On PPI 8. Acute kidney injury?present on admission ? Resolved 9. Hypertension - Blood pressure controlled, home medications continued with dose adjustment as needed 10. Hyponatremia ?Ordered urine osmole, serum osmole as well as urine sodium level as part of evaluation 11. Mild S-shaped scoliosis with degenerative disc disease. 12. DVT prophylaxis - On enoxaparin Time spent in the patient's overall evaluation,decision-making process, review of diagnostic data, adjustment of management, discussion with other providers, nursing nursing and ancillary staff involved in patient's care documentation, 50 Minutes Charges/Coding Visit Charges Inpatient E&M: 99925 Subs Hosp L2
[2023-10-15 21:34] LABS: Bedside Glucose 131 mg/dL (74-106)
[2023-10-16] VITALS (25 sets, daily range): BP systolic 111–141; BP diastolic 52–88; PULSE 97–115; RESP 22–40; TEMP 36.6–38.9; O2SAT 93–98; BMI 36.3
[2023-10-16 04:08] LABS: Haptoglobin 395 mg/dL (23-355)
[2023-10-16] MEDS: 0.9% Saline Lock 10 ML Syringe IV ×3 (05:19→14:30)
[2023-10-16] MEDS: Cefazolin 2 GM in 0.9% Normal Saline (100mL Bag) 100 ML IV ×2 (05:19→12:51)
[2023-10-16 05:44] LABS: Absolute Lymphocyte Count 0.37 X10^3/uL (0.83-4.51); Absolute Neutrophil Count 10.1 X10^3/uL (2.0-7.7); Basophil# 0.04 X10^3/uL; Basophil% 0.4 % (0-1); Eosinophil# 0.03 X10^3/uL; Eosinophils% 0.3 % (0-5); Hematocrit 27.6 % (40-54); Hemoglobin 9.2 g/dL (13.0-16.5); Lymphocyte # 0.37 X10^3/ul (0.83-4.51); Lymphocyte % 3.3 % (19-41); Mean Corp Hgb Conc 33.3 g/dL (32-36); Mean Corpuscular Hgb 28.8 pg (27.0-32.0); Mean Corpuscular Volume 86.3 fL (80-94); Mean Platelet Vol. 10.4 fl (6.2-12.0); Monocyte# 0.34 X10^3/uL; Monocyte% 3.1 % (0-10); NRBC Flagged by Analyzer 0 % (0-5); Neutrophil # 10.13 X10^3/uL (2.7-7.7); Neutrophil % 91.6 % (47-70); POSITIVE DIFFERENTIAL YES; Platelet Count 199 K/mm3 (150-450); RBC Distribution Width CV 13.7 % (11.6-14.6); RBC Distribution Width SD 42.4 fl (35.1-43.9); White Blood Count 11.1 K/mm3 (4.4-11.0)
[2023-10-16 06:04] LABS: AST(SGOT) 84 U/L (15-37); Alanine Aminotransfer ALT/SGPT 27 U/L (16-61); Alkaline Phosphatase 186 U/L (45-117); Anion Gap 7 (5-15); BUN 27 mg/dL (7-18); BUN/Creat Ratio 38.5 RATIO (10-20); Bilirubin, Direct 5.24 mg/dL (0.00-0.30); Calcium,Total 7.3 mg/dL (8.5-10.1); Chloride 99 mmol/L (98-107); EST Glomerular Filtration Rate 128 mL/min (>60); Est Glom Filt Rate - Afr Amer 155 mL/min (>60); Estimated Creatinine Clearance 160.65 ml/min; Globulin 5.5 g/dL (2.2-4.2); Glucose 120 mg/dL (74-106); Potassium 3.9 mmol/L (3.5-5.1); Protein, Total 6.5 g/dL (6.4-8.2); Sodium Level 130 mmol/L (136-145)
[2023-10-16] MEDS: Acetaminophen 325 MG Tablet 650 MG PO ×2 (06:11→14:28)
--- NOTE | 2023-10-16 07:01 | PCM.PN.INT ---
Assessment & Plan Assessment/Plan (1) MSSA bacteremia: (2) Sepsis: PLAN: Plan RECOMMENDATIONS: 1. Awaiting transfer to tertiary care facility. 2. Continue antimicrobials per ID recommendations. 3. Continue PPI therapy. 4. Basal and sliding scale insulin coverage. 5. Hold Lovenox on account of pending transfer and questionable need for surgical intervention. IMPRESSIONS: 1. MSSA bacteremia The patient presented with sepsis secondary to MSSA bacteremia with radiographic evidence of lumbar spinal osteomyelitis/discitis with associated abscess. The patient remains on antimicrobial therapy per the discretion of infectious diseases. This case was discussed with spine surgery, who ultimately recommended transfer to tertiary care facility for further management/intervention. 2. Anemia/thrombocytopenia/hyperbilirubinemia Initially felt to be the consequence of presenting sepsis. Continue to monitor blood counts and transfuse if hemoglobin drops below 7 g/dL. MRCP was completed and only demonstrated cholelithiasis without any biliary dilation or choledocholithiasis. 3. History of diabetes mellitus/hypertension/hyperlipidemia/GERD/obesity Complicates care, management, recovery and prognosis. Continue supportive care as noted above. This note was generated with [employer] dictation software. It may contain incorrect words, spelling, and punctuation that were not noted in checking the note before signing. Subjective Subjective The patient was seen and examined at the bedside this morning. Events from the last 24 hours have been reviewed. The patient continues to have low-grade fevers but remains otherwise hemodynamically stable on 1 L/min via nasal cannula. He is still awaiting transfer to [facility]. White count this morning was noted to be 11,000 with a hemoglobin of 9.2 g/dL. Platelet count is normal. Total bilirubin has decreased to 6.1. Objective Data Objective Data The patient's most recent lab work, culture data and imaging studies have all been personally reviewed. Blood cultures were positive for MSSA. Vital Signs: Vital Signs Temp Pulse Resp BP Pulse Ox O2 Del Method O2 Flow Rate 100.9 F H 110 H 37 H 113/64 98 Nasal Cannula 1 10/16/23 06:00 10/16/23 06:00 10/16/23 06:00 10/16/23 06:00 10/16/23 06:00 10/16/23 06:00 10/16/23 06:00 FiO2 95 10/13/23 14:00 Oxygen Flow Rate (L/min) 1 Oxygen Delivery Method Nasal Cannula Weight: 246 lb 0.574 oz Body Mass Index (BMI) 36.3 Intake & Output: Intake and Output for Last 24 Hours 10/14/23 10/15/23 10/16/23 23:59 23:59 23:59 Intake Total 2860.00 / 2860.00 2644.75 / 2644.75 110 / 110 Output Total 5275 / 5275 2800 / 2800 525 / 525 Balance -2415.00 / -2415.00 -155.25 / -155.25 -415 / -415 Lab / Micro Data Attestation: I reviewed the patient's lab results. 10/16/23 05:25 10/16/23 05:25 Labs: Laboratory Results - last 24 hr 10/15/23 06:20: Differential Comment SCANNED, Lactate Dehydrogenase 225 10/15/23 07:20: POC Glucose 40 L* 10/15/23 07:59: POC Glucose 90 10/15/23 10:36: POC Glucose 118 H 10/15/23 10:40: Haptoglobin 395 H 10/15/23 15:43: POC Glucose 139 H 10/15/23 21:08: POC Glucose 131 H 10/16/23 05:25: WBC 11.1 H, RBC 3.20 L, Hgb 9.2 L, Hct 27.6 L, MCV 86.3, MCH 28.8, MCHC 33.3, RDW Std Deviation 42.4, RDW Coeff of Hermila 13.7, Plt Count 199, MPV 10.4, Immature Gran % (Auto) 1.300 H, Neut % (Auto) 91.6 H, Lymph % (Auto) 3.3 L, [place] % (Auto) 3.1, Eos % (Auto) 0.3, Baso % (Auto) 0.4, Absolute Neuts (auto) 10.1 H, Absolute Lymphs (auto) 0.37 L, Nucleated RBC % 0, Sodium 130 L, Potassium 3.9, Chloride 99, Carbon Dioxide 24.0, Anion Gap 7, BUN 27 H, Creatinine 0.70, Estim Creat Clear Calc 160.65, Est GFR (MDRD) Af Amer 155, Est GFR (MDRD) Non-Af 128, BUN/Creatinine Ratio 38.5 H, Glucose 120 H, Calcium 7.3 L, Total Bilirubin 6.10 H, Direct Bilirubin 5.24 H, AST 84 H, ALT 27, Alkaline Phosphatase 186 H, Total Protein 6.5, Albumin 1.0 L, Globulin 5.5 H Micro: Microbiology 10/14/23 13:10 Wound - Left Foot Gram Stain - Final 10/14/23 13:10 Wound - Left Foot Wound Culture - Preliminary No growth-Final to follow 10/12/23 13:25 Blood Culture (Wb) - Anticubital Left Blood Culture - Final Staphylococcus aureus 10/11/23 13:30 Urine, Clean Catch Urine Culture - Final Staphylococcus aureus 10/11/23 13:10 Blood Culture (Wb) - Anticubital Right Bacteria Detection (PCR) - Final Staphylococcus aureus 10/11/23 13:10 Blood Culture (Wb) - Anticubital Right Blood Culture - Final Staphylococcus aureus Radiography Diagnostic Testing: Radiology Impression Abdomen Ultrasound 10/14/23 09:40 IMPRESSION: Distended gallbladder with cholelithiasis. No sonographic evidence of cholecystitis. Common bile duct is within normal limits, somewhat prominent for age. Correlate with biliary labs for evidence of obstruction. MRCP could further evaluate as clinically indicated. Hepatomegaly. Electronically Signed: Cecilio James MD at 7:03 EDT Reading Location ID and State: [facility] / [place] Tel , Service support , Physical Exam Const alert Constitutional Narrative: Jaundiced in appearance. General Appearance: cooperative and ill appearing HEENT normocephalic and head/scalp atraumatic Eyes PERRL and EOMs intact bilaterally Neck supple General: trachea midline Chest inspection of chest normal Resp normal respiratory effort Effort and Inspection: tachypneic Auscultation: diminished lung sounds Cardio regular rate and regular rhythm GI normal to inspection, nondistended, normoactive bowel sounds Extremity General Extremity: edema bilateral upper extremity and lower extremity Neuro oriented x3 and CN's II-XII intact bilaterally Psych cooperative and affect normal Charges/Coding Visit Charges Inpatient E&M: 02419 Subs Hosp L2
--- NOTE | 2023-10-16 07:29 | PCM.PN.HOSP ---
Reason for Visit Reason for Visit: Diagnoses Sepsis, unspecified organism (10/11/23) Tinea unguium (10/11/23) Methicillin susceptible Staphylococcus aureus infection as the cause of diseases classified elsewhere (10/11/23) Thrombocytopenia, unspecified (10/11/23) Elevated white blood cell count, unspecified (10/11/23) Diabetes mellitus due to underlying condition with foot ulcer (10/11/23) Other disorders of bilirubin metabolism (10/11/23) Dehydration (10/11/23) Hypo-osmolality and hyponatremia (10/11/23) Acidosis, unspecified (10/11/23) Lymphedema, not elsewhere classified (10/11/23) Hypotension, unspecified (10/11/23) Non-pressure chronic ulcer of other part of unspecified foot limited to breakdown of skin (10/11/23) Other hammer toe(s) (acquired), right foot (10/11/23) Other hammer toe(s) (acquired), left foot (10/11/23) Effusion, right elbow (10/11/23) Pain in unspecified joint (10/11/23) Other specified soft tissue disorders (10/11/23) Acute kidney failure, unspecified (10/11/23) Urinary tract infection, site not specified (10/11/23) Tachycardia, unspecified (10/11/23) Tachypnea, not elsewhere classified (10/11/23) Bacteremia (10/11/23) Subjective Subjective Patient seen transferred to [facility] still pending. Patient continues to spike intermittent fevers. Objective Data Objective Data Vital Signs: Vital Signs Temp Pulse Resp BP Pulse Ox O2 Del Method O2 Flow Rate 101.2 F H 106 H 32 H 119/66 96 Room Air 1 10/16/23 07:00 10/16/23 07:00 10/16/23 07:00 10/16/23 07:00 10/16/23 07:00 10/16/23 07:00 10/16/23 07:00 FiO2 95 10/13/23 14:00 Oxygen Flow Rate (L/min) 1 Oxygen Delivery Method Room Air Weight: 111.6 kg Body Mass Index (BMI) 36.3 Intake & Output: Intake and Output for Last 24 Hours 10/14/23 10/15/23 10/16/23 23:59 23:59 23:59 Intake Total 2860.00 / 2860.00 2644.75 / 2644.75 110 / 110 Output Total 5275 / 5275 2800 / 2800 525 / 525 Balance -2415.00 / -2415.00 -155.25 / -155.25 -415 / -415 Lab / Micro Data 10/16/23 05:25 10/16/23 05:25 Labs: Laboratory Results - last 24 hr 10/15/23 06:20: Lactate Dehydrogenase 225 10/15/23 07:20: POC Glucose 40 L* 10/15/23 07:59: POC Glucose 90 10/15/23 10:36: POC Glucose 118 H 10/15/23 10:40: Haptoglobin 395 H 10/15/23 15:43: POC Glucose 139 H 10/15/23 21:08: POC Glucose 131 H 10/16/23 05:25: WBC 11.1 H, RBC 3.20 L, Hgb 9.2 L, Hct 27.6 L, MCV 86.3, MCH 28.8, MCHC 33.3, RDW Std Deviation 42.4, RDW Coeff of Hermila 13.7, Plt Count 199, MPV 10.4, Immature Gran % (Auto) 1.300 H, Neut % (Auto) 91.6 H, Lymph % (Auto) 3.3 L, [place] % (Auto) 3.1, Eos % (Auto) 0.3, Baso % (Auto) 0.4, Absolute Neuts (auto) 10.1 H, Absolute Lymphs (auto) 0.37 L, Nucleated RBC % 0, Sodium 130 L, Potassium 3.9, Chloride 99, Carbon Dioxide 24.0, Anion Gap 7, BUN 27 H, Creatinine 0.70, Estim Creat Clear Calc 160.65, Est GFR (MDRD) Af Amer 155, Est GFR (MDRD) Non-Af 128, BUN/Creatinine Ratio 38.5 H, Glucose 120 H, Calcium 7.3 L, Total Bilirubin 6.10 H, Direct Bilirubin 5.24 H, AST 84 H, ALT 27, Alkaline Phosphatase 186 H, Total Protein 6.5, Albumin 1.0 L, Globulin 5.5 H Micro: Microbiology 10/14/23 13:10 Wound - Left Foot Gram Stain - Final 10/14/23 13:10 Wound - Left Foot Wound Culture - Preliminary No growth-Final to follow 10/12/23 13:25 Blood Culture (Wb) - Anticubital Left Blood Culture - Final Staphylococcus aureus 10/11/23 13:30 Urine, Clean Catch Urine Culture - Final Staphylococcus aureus 10/11/23 13:10 Blood Culture (Wb) - Anticubital Right Bacteria Detection (PCR) - Final Staphylococcus aureus 10/11/23 13:10 Blood Culture (Wb) - Anticubital Right Blood Culture - Final Staphylococcus aureus Physical Exam Narrative GENERAL: cooperative HEENT: Atraumatic; normocephalic EYES; icteric, Normal Conjunctiva NECK; supple, normal thyroid, RESPIRATORY: Diminished to auscultation CARDIOVASCULAR: Regular S1 S2, GI: soft, normoactive bowel sounds, : No Renal angle tenderness; EXTREMITIES: edema, no clubbing, MUSCULOSKELETAL: Swelling in right elbow and wrist with restricted movement NEURO: Awake; no lateralizing signs. SKIN: No Rash PSYCH; Flat affect Assessment & Plan Assessment/Plan (1) MSSA bacteremia: (2) Polyarthralgia: (3) Lymphedema of leg: (4) Sepsis: PLAN: Plan Patient is a 48-year-old gentleman on admission with sepsis secondary to staph bacteremia as well as acute kidney injury 1. Sepsis ? Staph bacteremia. There is concern for possible polyarticular spread with patient complaining of joint stiffness. A transthoracic echo has been ordered if nondiagnostic will obtain BETHANIE. Repeat blood cultures sent consult placed to ID ? Subsequent imaging studies with MRCP as well as MRI of the lumbar spine did not demonstrate presence of discitis as well as epidural abscess. Details of lumbar MRI findings as below Acute osteomyelitis and discitis at L4-L5 with extruded anterior and posterior epidural infectious fluid. The largest fluid collections in the left posterior lateral epidural space measuring 1.21 cm. The posterior epidural fluid collection contributes to central canal stenosis which is severe at L4-L5. 2. Infected/inflamed left facet joint at L5-S1 with extruded fluid into the posterior paraspinal muscle fibers resulting in enhancing intramuscular abscess that measures 1.68 cm in diameter. Based on the above finding call was placed to [facility] to have patient transferred for neurosurgery evaluation 10/16/2023.; transferred to [facility] still pending. Patient continued to spike fevers. Repeat blood cultures ordered on results pending 2. Abnormal LFTs ? Patient has significant hyperbilirubinemia with elevated With mildly elevated transaminases. Patient denies alcohol use. Right upper quadrant ultrasound ordered did show Multiple gallstones. Mild hepatomegaly. Mild thickening of the gallbladder wall consult placed to GI 3. Diabetic foot ulcer involving the left second digit ? Podiatry consulted patient had bedside wound debridement 4. Diabetes mellitus type II -patient's oral hypoglycemics held. Placed on long acting insulin, Accu-Cheks a.c. and at bedtime and covered with sliding scale insulin 5. Right elbow swelling ? Imaging studies obtained demonstrate subtle age indeterminate nondisplaced fracture of the olecranon process. Mild subcutaneous edema surrounding the elbow. 6. Dyslipidemia -Patient is on statin therapy, continued at home dose 7. GERD ? On PPI 8. Acute kidney injury?present on admission ? Resolved 9. Hypertension - Blood pressure controlled, home medications continued with dose adjustment as needed 10. Hyponatremia ?Ordered urine osmole, serum osmole as well as urine sodium level as part of evaluation 11. Mild S-shaped scoliosis with degenerative disc disease. 12. DVT prophylaxis - On enoxaparin Time spent in the patient's overall evaluation,decision-making process, review of diagnostic data, adjustment of management, discussion with other providers, nursing nursing and ancillary staff involved in patient's care documentation, 38 Minutes Charges/Coding Visit Charges Inpatient E&M: 28407 [facility] Hosp L2
[2023-10-16 08:24] LABS: Bedside Glucose 138 mg/dL (74-106)
[2023-10-16] MEDS: Pantoprazole Sodium 40 MG Tablet PO (09:24)
[2023-10-16] MEDS: tiZANidine HCl 2 MG Tablet PO (09:57)
[2023-10-16 11:21] LABS: Bedside Glucose 153 mg/dL (74-106)
--- NOTE | 2023-10-16 11:40 | PCM.PN.ID ---
ID ID: Route of nutrition/ use of supplements: [] Nutritional Intake: [] IV Site: [] Montoya Catheter: [] Patient is alert and responsive. Tolerating cefazolin well. No fevers. Cardiopulmonary status stable. Alert responsive remains toxic. Vital signs reviewed. Sclera markedly icteric heart exam S1-S2 no murmurs appreciated abdomen soft. Lower extremities strength no focal deficits Assessment & Plan Assessment/Plan (1) Staphylococcus aureus bacteremia: PLAN: Continue cefazolin 2 g IV every 8 hours. Repeat blood cultures pending. Plan to transfer the patient to a tertiary care center for orthopedic spine evaluation.
[2023-10-16] MEDS: oxyCODONE 5 MG Tablet PO (11:54)
[2023-10-16] MEDS: 0.9% Normal Saline (250mL Bag) 250 ML 15 ML IV (12:51)
[2023-10-16 14:40] LABS: Ferritin 835 ng/mL (26-388)
[2023-10-16 15:05] LABS: HIV - WCH Non-Reactive (Nonreactive)
[2023-10-16] MEDS: Insulin Lispro 100 UNIT/ML INSULN.PEN SC (15:59)
[2023-10-16 16:09] LABS: Bedside Glucose 211 mg/dL (74-106)
--- NOTE | 2023-10-16 17:21 | CON.PCM.GI_ITS ---
HPI Consult Data Date of Consult: 10/16/23 HPI Narrative Reason for Consultation: Abnormal LFTs HPI Narrative: SHIV CADET, is a 48 M who presented to the emergency department at [facility] on 10/11/2023 with multiple complaints. On September 27, 2023 he was lifting a large case of water at which time he had a injury to his back. He was seen at an urgent care and given a prescription for muscle relaxants and had significant improvement in his symptoms however approximately 1 week later he got out of a [place] at a restaurant and had sudden back pain. He was seen by his primary care physician who put him on steroids and muscle relaxants along with pain medication. He has continued to have back pain with some back problems since that point in time. He was seen in an emergency department in [place] twice in the past 7 to 10 days and treated for pain but no further workup was obtained. He states his back pain has been an ongoing issue however in the last 48 hours he developed diffuse bodyaches, nausea and vomiting, skin hypersensitivity, and redness and swelling in his right and left hands as well as swelling in his right elbow. - Vital signs in the ED were normal except for tachycardia at 115 and blood pressure into the 80s over 60s. There is no sign of respiratory distress. - CBC demonstrated a significant leukocytosis with a white count of 17.5 and a significant left shift with 92% neutrophilia. His platelet count is also low at 77,000. - PT of 16.8, INR 1.4 PTT 35.2. - ABG was obtained and he is alkalotic with a pH of 7.54 and his blown his pCO2 down to 23.3 with his tachypnea. pCO2 was 69 with a oxygenation saturation of 96%. - Chemistry panel showed hyponatremia with a sodium of 131, BUN of 52 with a serum creatinine of 1.79 (baseline serum creatinine between 0.7 and 0.9). - lactic acid was 4.8 with a - total bilirubin of 6.1 and a direct bilirubin of 5.2. Alk phos 230 and AST 71. - His urine shows dehydration with a specific gravity of 1.015 and is consistent with infection having a positive leuk esterase, greater than 100 white cells per high-powered field and 4+ bacteria. Tylenol level was less than 2 and acetone level was negative. - CT of his abdomen pelvis was obtained and showed small close are not in the dependent portion of the gallbladder lumen and mild splenomegaly. - Gallbladder ultrasound showed multiple gallstones and mild hepatomegaly with thickening of the wall of the gallbladder that is mild. - Chest x-ray showed no active pulmonary disease. He was identified as having MSSA bacteremia. MRCP displayed - cholelithiasis without biliary dilatation or choledocholithiasis. His echo of the heart did not reveal any signs of vegetations. However because of his back pain and an MRI of the lumbar spine was ordered. 1. Acute osteomyelitis and discitis at L4-L5 with extruded anterior and posterior epidural infectious fluid. The largest fluid collections in the left posterior lateral epidural space measuring 1.21 cm. The posterior epidural fluid collection contributes to central canal stenosis which is severe at L4-L5. 2. Infected/inflamed left facet joint at L5-S1 with extruded fluid into the posterior paraspinal muscle fibers resulting in enhancing intramuscular abscess that measures 1.68 cm in diameter. 3. Multilevel degenerative changes, as described above. He is awaiting transfer to an outside institution for orthopedic surgery evaluation [facility] Medical History Family history of colon cancer requiring screening colonoscopy Diarrhea Nausea & vomiting Abdominal pain Depression Family history of colon cancer GERD (gastroesophageal reflux disease) Diabetes HTN (hypertension) Home Medications ?Medication ?Instructions ?Recorded ?Last Taken ?Type fluoxetine 40 mg capsule 40 mg PO DAILY 06/23/18 10/11/23 History glimepiride 4 mg tablet 4 mg PO BID 06/23/18 10/11/23 History lisinopril 5 mg tablet 5 mg PO QHS KIDNEYS 06/23/18 10/10/23 History metformin 1,000 mg tablet 1,000 mg PO BID 06/23/18 10/11/23 History insulin glargine 100 unit/mL (3 40 unit subcut QHS DIABETES 10/06/19 10/11/23 History mL) subcutaneous pen meloxicam 15 mg tablet 15 mg PO DAILY PRN pain 10/06/19 Unknown History omeprazole 20 mg capsule,delayed 20 mg PO DAILY 10/06/19 10/11/23 History release cyclobenzaprine 10 mg tablet 10 mg PO TID 10/11/23 Unknown History empagliflozin 25 mg tablet 25 mg PO DAILY 10/11/23 10/11/23 History (Jardiance) fluoxetine 20 mg capsule 20 mg PO DAILY 10/11/23 10/11/23 History gabapentin 300 mg capsule 300 mg PO QHS 10/11/23 10/10/23 History insulin lispro 100 unit/mL 10 unit subcut TID 10/11/23 10/11/23 History subcutaneous pen (Humalog KwikPen (U-100) Insulin) ketorolac 10 mg tablet 10 mg PO TID 10/11/23 10/11/23 History rosuvastatin 5 mg tablet 5 mg PO DAILY 10/11/23 10/11/23 History Cefazolin 2 gm 150 mls/hr IV Q8 10/15/23 Unknown Rx Allergy/AdvReac Type Severity Reaction Status Date / Time No Known Allergies Allergy Verified 10/11/23 10:41 Family History Brother Colon cancer Mother Hypertension Surgical History No history of previous surgery Social History household members: family housing: house Smoking Status: Never smoker alcohol intake: never substance use type: does not use ROS Constitutional Constitutional: Reports anorexia, chills, fatigue, malaise and weakness; Denies change in weight, fever(s), night sweats or other Eyes Eyes: Denies blurry vision, change in eye color, change in vision, discharge from eye(s), double vision, erythema, eye pain, loss of vision or other ENT HEENT: Denies abnormal hearing, dysphagia, ear pain, epistaxis, headache(s), hearing loss, nasal congestion, nasal discharge, post nasal drip, sinus pressure, sore throat or other Cardiovascular Cardiovascular: Denies chest pain, claudication, dyspnea on exertion, edema, lightheadedness, orthopnea, palpitations, paroxysmal nocturnal dyspnea, rapid heart rate, syncope or other Respiratory/Chest Respiratory/Chest: Denies cough, dyspnea, excessive phlegm production, hemoptysis, productive cough, shortness of breath at rest, shortness of breath with exertion, wheezing or other Gastrointestinal Gastrointestinal: Reports abdominal pain, nausea and vomiting; Denies coffee ground emesis, constipation, diarrhea, dyspepsia, hematemesis, hematochezia, loose stools, melena or other Genitourinary Genitourinary: Reports urinary frequency; Denies burning urination, difficulty urinating, dysuria, hematuria, nocturia, urinary hesitancy, urinary incontinence, urinary urgency or other Musculoskeletal Musculoskeletal: Reports arthralgias, back pain, joint pain, joint stiffness, joint swelling and myalgias; Denies neck pain or other Neurologic Neurologic: Reports abnormal gait Psychiatric Psychiatric: Denies anxiety, depression, homicidal ideation, suicidal ideation or other Endocrine Endocrinology: Denies change in body appearance, cold intolerance, excessive sweating, heat intolerance, polydipsia, polyuria or other Hematologic/Lymphatic Hematologic/Lymphatic: Denies anemia, easy bleeding, easy bruising, lymphadenopathy or other Allergic/Immunologic Allergic/Immunologic: Denies rhinitis, hives, eczemia, asthma or other Physical Exam Narrative GENERAL: cooperative HEENT: Atraumatic; normocephalic EYES; icteric, Normal Conjunctiva NECK; supple, normal thyroid, RESPIRATORY: Diminished to auscultation CARDIOVASCULAR: Regular S1 S2, GI: soft, normoactive bowel sounds, : No Renal angle tenderness; EXTREMITIES: edema, no clubbing, MUSCULOSKELETAL: Swelling in right elbow and wrist with restricted movement NEURO: Awake; no lateralizing signs. SKIN: No Rash PSYCH; Flat affect Lab / Micro Data 10/16/23 05:25 10/16/23 05:25 Labs: Laboratory Results - last 24 hr 10/15/23 10:40: Haptoglobin 395 H 10/15/23 21:08: POC Glucose 131 H 10/16/23 05:25: WBC 11.1 H, RBC 3.20 L, Hgb 9.2 L, Hct 27.6 L, MCV 86.3, MCH 28.8, MCHC 33.3, RDW Std Deviation 42.4, RDW Coeff of Hermila 13.7, Plt Count 199, MPV 10.4, Immature Gran % (Auto) 1.300 H, Neut % (Auto) 91.6 H, Lymph % (Auto) 3.3 L, Moore % (Auto) 3.1, Eos % (Auto) 0.3, Baso % (Auto) 0.4, Absolute Neuts (auto) 10.1 H, Absolute Lymphs (auto) 0.37 L, Nucleated RBC % 0, Sodium 130 L, Potassium 3.9, Chloride 99, Carbon Dioxide 24.0, Anion Gap 7, BUN 27 H, Creatinine 0.70, Estim Creat Clear Calc 160.65, Est GFR (MDRD) Af Amer 155, Est GFR (MDRD) Non-Af 128, BUN/Creatinine Ratio 38.5 H, Glucose 120 H, Calcium 7.3 L , Total Bilirubin 6.10 H, Direct Bilirubin 5.24 H, AST 84 H, ALT 27, Alkaline Phosphatase 186 H, Total Protein 6.5, Albumin 1.0 L, Globulin 5.5 H 10/16/23 08:01: POC Glucose 138 H 10/16/23 11:01: POC Glucose 153 H 10/16/23 13:50: Ferritin 835 H, HIV 1&2 Antibody Non-Reactive 10/16/23 15:51: POC Glucose 211 H Micro: Microbiology 10/14/23 05:29 Blood Culture (Wb) - Left Forearm Blood Culture - Preliminary No growth in 48 hours. 10/14/23 13:10 Wound - Left Foot Gram Stain - Final 10/14/23 13:10 Wound - Left Foot Wound Culture - Preliminary No growth-Final to follow Assessment & Plan Assessment/Plan (1) MSSA bacteremia: (2) Thrombocytopenia: (3) Hyperbilirubinemia: (4) Sepsis: (5) UTI (urinary tract infection): (6) Acute kidney injury: (7) Dehydration: (8) Swelling of right elbow: (9) Swelling of right hand: (10) Swelling of left hand: (11) Diabetic ulcer of foot associated with diabetes mellitus due to underlying condition, limited to breakdown of skin: (12) Leukocytosis: (13) Hyponatremia: (14) Lactic acidosis: (15) Tachycardia: (16) Hypotension: (17) Tachypnea: (18) Polyarthralgia: PLAN: Plan 48-year-old gentleman with worsening back pain and a past medical history of diabetes complicated by Diabetic ulcer of foot in the ICU with MSSA spinal abscess. He was also discovered to have cholestatic hepatitis with jaundice he has no previous history of liver disease. He has no history of chronic viral hepatitis B or C. He has no history of autoimmune hepatitis, HIV, hemochromatosis, sarcoidosis, amyloidosis. There were no signs of obstruction on his CT scan, ultrasound or MRCP. The differential diagnosis for his cholestatic hepatitis with jaundice would be sepsis induced cholestatic dysfunction, medication induced cholestatic hepatitis. I do not suspect viral hepatitis because the transaminitis is not significant. The bilirubin should be fractionated for indirect bilirubin to see if this is more GilBert's disease in the setting of transaminitis along with checking a CPK and aldolase to see if this is muscle injury from his MSSA bacteremic spinal abscess. He is not exhibiting any signs of encephalopathy or acute worsening liver failure. He still has appropriate synthetic function. There is no signs of GI bleeding which can be a possibility for acute liver failure due to intrahepatic portal hypertension. He is on prophylaxis for stress gastritis. An echocardiogram showed no evidence of endocarditis. Endocarditis can be associated with posthepatic portal hypertension and can result in cholestatic jaundice with hepatitis but the ALT to AST ratio should be reversed. I would suggest a liver biopsy as this is most likely sepsis induced cholestasis and jaundice. Liver biopsy can help determine if there is any portal involvement, interface hepatitis, increased iron burden, abnormal plasma proteins, ischemia or necrosis. Direct infections of the liver or biliary tree can lead to elevated bilirubin and deranged liver enzymes. Hypotension secondary to sepsis may lead to liver injury.? Recommendations: -Biochemical workup for acute and chronic hepatitis both viral hepatitis and nonviral hepatitis -Serum protein electrophoresis -HIV -QuantiFERON gold -CPK and aldolase -Ferritin -Anti-smooth muscle antibody -Antimitochondrial antibody -Liver biopsy -ANCA antibody -MEL comprehensive profile Charges/Coding Visit Charges Inpatient E&M: 37258 Init Hosp L3
[2023-10-18 15:09] LABS: Anti-Centromere B Ab <0.2 AI (0.0-0.9); Anti-Chromatin <0.2 AI (0.0-0.9); Anti-Jo <0.2 AI (0.0-0.9); Anti-Mitochondrial AB <20.0 Units (0.0-20.0); Anti-Scleroderma-70 AB <0.2 AI (0.0-0.9); Anti-dsDNA Ab 2 IU/mL (0-9); RNP Ab 0.2 AI (0.0-0.9); SJOGREN'S Anti-SS-A test < 0.2 AI (0.0-0.9); SJOGREN'S Anti-SS-B test < 0.2 AI (0.0-0.9); Smith Ab <0.2 AI (0.0-0.9)
[2023-10-21 16:09] LABS: Albumin 1.3 g/dL (2.9-4.4); Alpha-1-Globulins 0.5 g/dL (0.0-0.4); Anti-Smooth Muscle ABS 16 Units (0-19); CMV Acute Antibody IgM < 30.0 AU/mL (0.0-29.9); Cytoplasmic Ab (C-ANCA) <1:20 titer (Neg:<1:20); EBV Acute VCA IgM < 36.0 U/mL (0.0-35.9); Gamma Globulin 1.8 g/dL (0.4-1.8); HEPATITIS B SURFACE AG Negative (Negative); Hep C Antibodies Non Reactive (Non Reactive); Hepatitis A IgM Antibody Negative (Negative); Hepatitis B Core AB IgM Negative (Negative); Immunoglobulin A 567 mg/dL (90-386); Immunoglobulin G 1932 mg/dL (603-1613); Immunoglobulin M 53 mg/dL (20-172); PROEL- TOTAL PROTEIN 5.6 g/dL (6.0-8.5); Perinuclear Ab (P-ANCA) <1:20 titer (Neg:<1:20); V-Zoster Virus Acute IgM < 0.91 index (0.00-0.90)
== END 2023-10-16 20:22 | disposition short-term general hospital (02) | DRG 871 ==
LOC: ED 14:54 → ICU 15:33 → PCU 10-13 22:08 → ICU 10-14 13:24
PROVIDERS: Family Medicine; Internal Medicine Gastroenterology; Internal Medicine Infectious Disease; Admitting Provider Internal Medicine; Emergency Provider Emergency Medicine; PCP Family Medicine; Visit Provider Internal Medicine
DX: A41.01 Sepsis due to Methicillin susceptible Staphylococcus aureus (principal); G06.1 Intraspinal abscess and granuloma; E87.20 Acidosis, unspecified; E87.1 Hypo-osmolality and hyponatremia; M46.26 Osteomyelitis of vertebra, lumbar region; N17.9 Acute kidney failure, unspecified; J98.11 Atelectasis; N39.0 Urinary tract infection, site not specified; E11.649 Type 2 diabetes mellitus with hypoglycemia without coma; B35.1 Tinea unguium; E11.621 Type 2 diabetes mellitus with foot ulcer; L97.521 Non-pressure chronic ulcer of other part of left foot limited to breakdown of skin; Z79.4 Long term (current) use of insulin; E11.69 Type 2 diabetes mellitus with other specified complication; E11.65 Type 2 diabetes mellitus with hyperglycemia; I10 Essential (primary) hypertension; D64.9 Anemia, unspecified; K21.9 Gastro-esophageal reflux disease without esophagitis; I89.0 Lymphedema, not elsewhere classified; E86.0 Dehydration; M20.41 Other hammer toe(s) (acquired), right foot; E80.6 Other disorders of bilirubin metabolism; E78.5 Hyperlipidemia, unspecified; K80.20 Calculus of gallbladder without cholecystitis without obstruction; S52.024A Nondisplaced fracture of olecranon process without intraarticular extension of right ulna, initial encounter for closed fracture; M20.42 Other hammer toe(s) (acquired), left foot; S33.141A Dislocation of L4/L5 lumbar vertebra, initial encounter; E66.9 Obesity, unspecified; X50.0XXA Overexertion from strenuous movement or load, initial encounter; T38.3X5A Adverse effect of insulin and oral hypoglycemic [antidiabetic] drugs, initial encounter; Z68.31 Body mass index [BMI] 31.0-31.9, adult; Z79.84 Long term (current) use of oral hypoglycemic drugs; Z79.1 Long term (current) use of non-steroidal anti-inflammatories (NSAID)
CPT/HCPCS: 36415; 36569; 36600; 71045; 72158; 73130; 73200; 74176; 74181; 76705; 80048; 80053; 80074; 80076; 80202; 80329; 81001; 82009; 82728; 82784; 82803; 82962; 83010; 83036; 83516; 83605; 83615; 83735; 84100; 84145; 84165; 84443; 85025; 85384; 85610; 85652; 85730; 86140; 86225; 86235; 86256; 86334; 86645; 86664; 86665; 86703; 86787; 87040; 87070; 87077; 87086; 87088; 87149; 87186; 87205; 87640; 87641; 90471; 93005; 93308; 94668; 94762; 97162; 97167; 97530; 97802; 99252; 99285; A9575; J7030; J7040; J7050; J7120; A4216; G0463; G0480; J1940

== ENCOUNTER 2023-11-14 13:09 | Emergency (ER) | payer BC, SELFPAY ==
[2023-11-14] VITALS (50 sets, daily range): BP systolic 69–220; BP diastolic 41–134; PULSE 69–160; RESP 9–37; TEMP 36.6–36.9; O2SAT 6–100; BMI 31.9
--- NOTE | 2023-11-14 13:23 | CT_ITS ---
STUDY: CT BRAIN WITHOUT CONTRAST REASON FOR EXAM: Male, 48 years old. ams. Witnessed cardiac arrest. RADIATION DOSAGE (If Supplied By Facility): CTDIvol = ( 44.99 ) mGy, DLP = ( 812.98 ) mGycm TECHNIQUE: Transaxial CT imaging of the brain was performed without administration of intravenous contrast material. Individualized dose optimization techniques were used for this CT. COMPARISON: No relevant priors. FINDINGS: Normal soft tissue structures. Normal calvarium. Normal size ventricles and extra-axial spaces for the patient''s age. Normal white matter tracts of the cerebral hemispheres. Normal basal ganglia and thalami. Normal brainstem. Normal cerebellum. There is no intracranial hemorrhage. There are no findings of an acute ischemic infarction. Normal visualized paranasal sinuses. CT/Brain/Head without Contrast IMPRESSION: Normal unenhanced CT scan of the brain. Electronically Signed: Jason Dangelo MD at 14:10 EDT ,
[2023-11-14] MEDS: 0.9% Normal Saline (1000mL) 1,000 ML 999 ML IV (13:39)
--- NOTE | 2023-11-14 13:44 | ED.RN ---
Spoke with Alley at [facility]. Patient is usually A&Ox4. He is there for IV ATB therapy. She heard the patient gasping and saw him have a grand mal seizure. After 45 seconds the nurse states that he went unresponsive. CPR and 2 shocks with the AED were administered. When EMS arrived the patient was in VTach with no pulse. One shock given and 2 rounds of Epi.
[2023-11-14 13:45] LABS: Absolute Neutrophil Count 8.3 X10^3/uL (2.0-7.7); Basophil# 0.06 X10^3/uL; Basophil% 0.5 % (0-1); Eosinophil# 0.15 X10^3/uL; Eosinophils% 1.2 % (0-5); Hematocrit 32.1 % (40-54); Hemoglobin 9.4 g/dL (13.0-16.5); Lymphocyte % 27.3 % (19-41); Mean Corp Hgb Conc 29.3 g/dL (32-36); Mean Corpuscular Hgb 28.7 pg (27.0-32.0); Mean Corpuscular Volume 98.2 fL (80-94); Mean Platelet Vol. 9.5 fl (6.2-12.0); Monocyte# 0.71 X10^3/uL; Monocyte% 5.5 % (0-10); NRBC Flagged by Analyzer 0.2 % (0-5); Neutrophil # 8.25 X10^3/uL (2.7-7.7); Neutrophil % 64.3 % (47-70); POSITIVE MORPHOLOGY YES; Platelet Count 604 K/mm3 (150-450); RBC Distribution Width CV 18.1 % (11.6-14.6); RBC Distribution Width SD 66.3 fl (35.1-43.9); Red Blood Count 3.27 M/mm3 (4.6-6.2); White Blood Count 12.8 K/mm3 (4.4-11.0)
[2023-11-14 13:49] LABS: Differential Indicated SCAN CRITERIA MET
[2023-11-14 13:55] LABS: International Normalized Ratio 1.3; Partial Thromboplast Time 28.9 Seconds (24.1-36.2); Prothrombin Time (Protime)PT. 16.2 SECONDS (11.7-14.9)
--- NOTE | 2023-11-14 13:57 | RAD_ITS ---
STUDY: X-RAY CHEST REASON FOR EXAM: Male, 48 years old. Chest pain TECHNIQUE: AP and lateral views of the chest. COMPARISON: Comparison is made with prior study October 14, 2023. FINDINGS: A right-sided PICC line catheter seen with the tip at the junction of the superior vena cava and right atrium. EKG electrodes are seen. Vascular congestion. Focal infiltrate in the posterior medial segment of the right lower lobe with blunting of the right costophrenic angle posteriorly. Normal size heart. Normal mediastinum and nova. Normal visualized pulmonary arteries. Normal visualized aortic arch and descending thoracic aorta. Normal visualized thoracic spine. Normal visualized ribs, clavicles, and shoulders. There is no demonstrated abnormality of the visualized soft tissue structures of the upper abdomen. RAD/Chest PA and Lateral IMPRESSION: Findings suggest vascular congestion and mild CHF with focal infiltrate in the right lower lobe with blunting of the right costal phrenic angle posteriorly. Electronically Signed: Jason Dangelo MD at 14:11 EDT ,
[2023-11-14 14:06] LABS: Anisocytosis 1+
--- NOTE | 2023-11-14 14:11 | ED.RN ---
Patient's family yelled out and said they needed help. Went into the room and patient was adams and not responding. Patient was pulling his arms in towards his body. Dr Ramirez was not available so Dr Luciano went into the room. He gave a verbal order for 1mg of Ativan IV. By the time this nurse got into the omnicell, patient was alert and oriented. Dr Luciano cancelled the order and the patient was not given the ativan. Patient vomited soon after seizure. Patient was cleaned up and tolerated well. Family in the room.
[2023-11-14 14:16] LABS: BNP,B-Type NATRIURETIC PEPTIDE 760.9 pg/mL (0-100)
[2023-11-14 14:21] LABS: Lactic Acid 10.8 mmol/L (0.4-1.9)
[2023-11-14 14:22] LABS: AST(SGOT) 153 U/L (15-37); Alanine Aminotransfer ALT/SGPT 76 U/L (16-61); Albumin, Serum 1.6 g/dL (3.2-5.0); Alkaline Phosphatase 125 U/L (45-117); Anion Gap 18 (5-15); BUN 11 mg/dL (7-18); BUN/Creat Ratio 11.7 RATIO (10-20); Bilirubin, Direct 0.48 mg/dL (0.00-0.30); Calcium,Total 7.9 mg/dL (8.5-10.1); Chloride 102 mmol/L (98-107); Creatinine, Serum 0.94 mg/dL (0.70-1.30); EST Glomerular Filtration Rate 91 mL/min (>60); Est Glom Filt Rate - Afr Amer 110 mL/min (>60); Estimated Creatinine Clearance 112.27 ml/min; Globulin 6.1 g/dL (2.2-4.2); Glucose 248 mg/dL (74-106); Magnesium 1.6 mg/dL (1.6-2.6); Potassium 2.6 mmol/L (3.5-5.1); Protein, Total 7.7 g/dL (6.4-8.2); Sodium Level 139 mmol/L (136-145); Troponin-I HS (w/2H Reflex) 69 pg/mL (3.0-78.0)
[2023-11-14] MEDS: Sodium Bicarbonate 8.4% 50 ML Syringe 50 MEQ IV ×4 (14:22→14:33)
[2023-11-14] MEDS: Etomidate 20 MG/10 ML Vial 30 MG IV (14:27)
[2023-11-14] MEDS: Rocuronium Bromide 50 MG/5 ML Vial 100 MG IV (14:28)
[2023-11-14] MEDS: Calcium Chloride 1 GM/10 ML Syringe IVP (14:30)
[2023-11-14 14:34] LABS: Color, Urine Yellow (Yellow); Glucose, Dipstick 50 mg/dl (Normal); Ketone-Dipstick Negative (Negative); Leukocyte Esterase-Dipstick 25 /ul (Negative); Nitrite-Dipstick Negative (Negative); Occult Blood-Urine 250 /ul (Negative); Protein-Dipstick 500 mg/dl (Negative); Specific Gravity, Urine 1.015 (1.002-1.030); Urine Bilirubin Dipstick Negative (Negative); Urine Clarity Sl. Cloudy (Clear); Urine Urobilinogen Normal (Normal); Urine pH 6.5 (5.0 - 8.0)
--- NOTE | 2023-11-14 14:34 | RAD_ITS ---
STUDY: X-RAY CHEST REASON FOR EXAM: Male, 48 years old. Post intubation TECHNIQUE: Single AP portable view of the chest. COMPARISON: Comparison is made with prior study dated earlier today. FINDINGS: An endotracheal tube is seen. The tip is at 2.8 cm proximal to the reyna. An orogastric tube is seen with the tip below the left hemidiaphragm. EKG electrodes are seen. There now is evidence of bilateral perihilar airspace disease suggestive of pulmonary edema. A right-sided PICC line catheter is once again seen with the tip at the junction of the superior vena cava and right atrium. There is no demonstrated pleural abnormality. Normal size heart. Normal mediastinum and nova. Normal visualized pulmonary arteries. Normal visualized aortic arch and descending thoracic aorta. Normal visualized thoracic spine. Normal visualized ribs, clavicles, and shoulders. There is no demonstrated abnormality of the visualized soft tissue structures of the upper abdomen. RAD/Chest 1 View (Portable) IMPRESSION: The endotracheal tube is at 2.8 cm proximal to the reyna. The orogastric tube is seen below the left hemidiaphragm. Pulmonary edema. Electronically Signed: Jason Dangelo MD at 14:54 EDT ,
[2023-11-14] MEDS: fentaNYL 100 MCG/2 ML Ampul IV (14:35)
[2023-11-14] MEDS: Midazolam 2 MG/2 ML Syringe IV ×3 (14:36→19:15)
[2023-11-14 14:40] LABS: Mucous, Urine 0 SEEN /hpf (<or=2+); Squamous Epithelial Cells - UA 0 SEEN /hpf (0-5)
[2023-11-14] MEDS: Propofol 10MG/Ml 1,000 MG/100 ML Bottle 5.9 MG CONT INF (14:41)
[2023-11-14 14:43] LABS: Bacteria RARE /hpf (None Seen); Red Blood Cells-Urine 10-25 SEEN /hpf (0-5); Renal Epithelial Cells 5-10 SEEN /hpf (0-5); White Blood Cells 10-25 SEEN /hpf (0-5); White Cell Cast 0-5 SEEN /lpf (None Seen)
[2023-11-14] MEDS: Amiodarone 360 MG in Dextrose 5% Viaflo Bag 192.8 ML 33.3 MG CONT INF (14:57)
[2023-11-14 15:01] LABS: Base Excess 6 mmol/L (-2 to +2); Bicarbonate 30.5 mmol/L (22-26); Blood Gas Specimen Type ART; Mode AC; O2 Delivery Device Adult Vent; PEEP 8; PO2 56 mmHG (75-100); RR 18; SITE L Brach; SO2 89 % (95-99); Total Carbon Dioxide 32 mmol/L; pCO2 47.2 mmHg (35-45); pH 7.42 (7.35-7.45)
[2023-11-14 15:38] LABS: Reflex Troponin-HS? (from REC) Y
--- NOTE | 2023-11-14 15:38 | ED.RN ---
At 1515 CPR was initiated. Patient went into VTACH, no pulse. 1516 Patient shocked at 200 joules. 1517 Pulse check. No pulse. CPR resumed. Epinephrine 1mg given IV push. 1519 Pulse check. No pulse. CPR resumed. 1520 Patient had pulse.
--- NOTE | 2023-11-14 15:59 | CHAPLAIN ---
Type of Pastoral Visit ___ Initial Visit ___ Follow-up Visit ___ On-call Visit ___ General Patient Visit ___ Spiritual Assessment _x__ Family Conference ___ Bereavement ___ Rapid Response _x__ Code Blue ___ Other (describe below) Pastoral Care Referral From ___ Patient _x__ Family ___ Nurse ___ Physician ___ Mine Captain ___ Forensic Materials Engineer _x__ Other (describe below) Sacrament/Intervention _x__ Active listening ___ Anointing ___ Muslim ___ Bereavement ___ Communion _x__ Ingrid exploration ___ ___ Life review _x__ Prayer ___ Reconciliation ___ Sacrament of Sick _x__ Supportive presence ___ Wedding ___ Other (describe below) Pastoral Comments responded to the code blue in the ED and found family members present in the waiting room; offered support and presence throughout 90+ minutes of intervention and care by the medical team; code blue occurred three times while this engraver block was present in the ED; other family members came as well; advocated for family; offered prayers with family members as they requested; offered beverages and brought chairs; met with family and DR and head charger for family conference; escorted family into room; was present and available as needed and desired
--- NOTE | 2023-11-14 16:23 | ED.RN ---
At 1419 Amiodarone 150mg was given. 1427 Amiodarone 150mg was given.
--- NOTE | 2023-11-14 16:47 | EX.ED.DYSGE1 ---
HPI History of Present Illness Chief Complaint: CPR Narrative Narrative: Patient is a 48-year-old male with a past medical history of GERD, hypertension, diabetes, UTI, bacteremia that seeded into his spine who presented to the emergency department from nursing facility with a chief complaint of cardiac arrest. According to EMS the patient's was doing well this morning and when nursing went to check on him noted that he went out according to them they attach their AED and noted that he was defibrillated twice by them. When they arrived they noted that he was pulseless and in ventricular tachycardia therefore they defibrillated him as well. They placed an eye gel and brought him here. According to them and route the patient was choking on the eye gel so therefore they remove this. Patient was on nasal cannula upon arrival here. They noted that he did vomit there denies any history of seizures. Patient was unable to provide any history of present illness therefore acute care caveat applies. [facility] Medical History Family history of colon cancer requiring screening colonoscopy Diarrhea Nausea & vomiting Abdominal pain Depression Family history of colon cancer GERD (gastroesophageal reflux disease) Diabetes HTN (hypertension) Home Medications ?Medication ?Instructions ?Recorded ?Last Taken ?Type fluoxetine 40 mg capsule 40 mg PO DAILY 06/23/18 10/11/23 History glimepiride 4 mg tablet 4 mg PO BID 06/23/18 10/11/23 History lisinopril 5 mg tablet 5 mg PO QHS KIDNEYS 06/23/18 10/10/23 History metformin 1,000 mg tablet 1,000 mg PO BID 06/23/18 10/11/23 History insulin glargine 100 unit/mL (3 40 unit subcut QHS DIABETES 10/06/19 10/11/23 History mL) subcutaneous pen meloxicam 15 mg tablet 15 mg PO DAILY PRN pain 10/06/19 Unknown History omeprazole 20 mg capsule,delayed 20 mg PO DAILY 10/06/19 10/11/23 History release cyclobenzaprine 10 mg tablet 10 mg PO TID 10/11/23 Unknown History empagliflozin 25 mg tablet 25 mg PO DAILY 10/11/23 10/11/23 History (Jardiance) fluoxetine 20 mg capsule 20 mg PO DAILY 10/11/23 10/11/23 History gabapentin 300 mg capsule 300 mg PO QHS 10/11/23 10/10/23 History insulin lispro 100 unit/mL 10 unit subcut TID 10/11/23 10/11/23 History subcutaneous pen (Humalog KwikPen (U-100) Insulin) ketorolac 10 mg tablet 10 mg PO TID 10/11/23 10/11/23 History rosuvastatin 5 mg tablet 5 mg PO DAILY 10/11/23 10/11/23 History Cefazolin 2 gm 150 mls/hr IV Q8 10/15/23 Unknown Rx Allergy/AdvReac Type Severity Reaction Status Date / Time No Known Allergies Allergy Verified 11/14/23 13:20 Family History Brother Colon cancer Mother Hypertension Surgical History No history of previous surgery Social History household members: family and none housing: [facility] Smoking Status: Never smoker alcohol intake: never substance use type: does not use ROS ROS ED ROS Narrative Review of systems was unobtainable from the patient's secondary to his altered mental status therefore acute care caveat applies EXAM Physical Exam Narrative Exam Narrative: General: Patient was lying in bed with some emesis noted around his mouth, Head: Atraumatic, normocephalic Eyes: PERRL bilaterally, EOMI bilateral, no conjunctival injection noted Neck: Soft, supple, trachea midline Cardiovascular: Patient tachycardic no murmurs gallops rubs noted Respiratory: Clear to auscultation bilaterally Abdomen: Soft, nondistended, bowel sounds present x 4 extremities: +4/5 strength noted in the bilateral lower extremities, no pedal edema noted on exam Neurological: Patient was not following commands, however after family members arrived he was following commands Skin: Warm, dry Const Vital Signs: 11/14/23 13:10 11/14/23 13:19 11/14/23 13:24 Temperature 98.4 F Temperature Source Temporal Pulse Rate 113 H 121 H Respiratory Rate 31 H 24 H Respiratory Pattern Blood Pressure 120/70 116/72 Blood Pressure Mean 86 86 Pulse Ox 90 95 6 Oxygen Delivery Method Nasal Cannula Nasal Cannula Nasal Cannula Oxygen Flow Rate (L/min) 6 Fraction of Inspired Oxygen (FIO2) 11/14/23 13:26 11/14/23 13:30 11/14/23 13:45 Temperature Temperature Source Pulse Rate 114 H 121 H 109 H Respiratory Rate 23 H 37 H Respiratory Pattern Blood Pressure 127/69 H 129/84 H 133/83 H Blood Pressure Mean 88 99 99 Pulse Ox 93 98 100 Oxygen Delivery Method Nasal Cannula Nasal Cannula Oxygen Flow Rate (L/min) Fraction of Inspired Oxygen (FIO2) 11/14/23 14:00 11/14/23 14:00 11/14/23 14:15 Temperature Temperature Source Pulse Rate 116 H 113 H Respiratory Rate 25 H 31 H Respiratory Pattern Blood Pressure 134/79 H 134/79 H 152/82 H Blood Pressure Mean 97 97 105 Pulse Ox 99 100 97 Oxygen Delivery Method Nasal Cannula Oxygen Flow Rate (L/min) Fraction of Inspired Oxygen (FIO2) 11/14/23 14:15 11/14/23 14:30 11/14/23 14:30 Temperature Temperature Source Pulse Rate 115 H 107 H Respiratory Rate 27 H 20 H Respiratory Pattern Blood Pressure 152/82 H 140/90 H 140/90 H Blood Pressure Mean 97 106 105 Pulse Ox 97 Oxygen Delivery Method Nasal Cannula Oxygen Flow Rate (L/min) Fraction of Inspired Oxygen (FIO2) 11/14/23 14:35 11/14/23 14:35 11/14/23 14:40 Temperature Temperature Source Pulse Rate 124 H 121 H 123 H Respiratory Rate 18 24 H 12 Respiratory Pattern Blood Pressure 170/95 H 170/95 H Blood Pressure Mean 120 116 Pulse Ox 84 85 Oxygen Delivery Method Mechanical Ventilator Oxygen Flow Rate (L/min) Fraction of Inspired Oxygen (FIO2) 50 11/14/23 14:45 11/14/23 14:45 11/14/23 14:47 Temperature Temperature Source Pulse Rate 156 H 160 H 157 H Respiratory Rate 22 H 20 H 15 Respiratory Pattern Blood Pressure 220/134 H 220/134 H 193/105 H Blood Pressure Mean 162 156 134 Pulse Ox 81 93 Oxygen Delivery Method Mechanical Ventilator Mechanical Ventilator Oxygen Flow Rate (L/min) Fraction of Inspired Oxygen (FIO2) 11/14/23 14:47 11/14/23 14:51 11/14/23 15:00 Temperature Temperature Source Pulse Rate 148 H 121 H 111 H Respiratory Rate 9 L 18 18 Respiratory Pattern Normal Blood Pressure 193/105 H Blood Pressure Mean 129 Pulse Ox 94 88 100 Oxygen Delivery Method Oxygen Flow Rate (L/min) Fraction of Inspired Oxygen (FIO2) 100 11/14/23 15:01 11/14/23 15:01 11/14/23 15:15 Temperature Temperature Source Pulse Rate 101 H 97 Respiratory Rate 16 15 Respiratory Pattern Normal Blood Pressure Blood Pressure Mean Pulse Ox 100 100 Oxygen Delivery Method Nasal Cannula Oxygen Flow Rate (L/min) 6 Fraction of Inspired Oxygen (FIO2) 85 11/14/23 15:22 11/14/23 15:22 11/14/23 15:27 Temperature Temperature Source Pulse Rate 137 H 124 H Respiratory Rate 24 H 16 Respiratory Pattern Blood Pressure 195/116 H 195/116 H 130/68 H Blood Pressure Mean 142 137 88 Pulse Ox 90 Oxygen Delivery Method Mechanical Ventilator Mechanical Ventilator Oxygen Flow Rate (L/min) Fraction of Inspired Oxygen (FIO2) 11/14/23 15:27 11/14/23 15:30 11/14/23 15:30 Temperature Temperature Source Pulse Rate 122 H 115 H 111 H Respiratory Rate 16 17 18 Respiratory Pattern Blood Pressure 130/68 H 118/63 118/63 Blood Pressure Mean 86 81 80 Pulse Ox 81 84 88 Oxygen Delivery Method Mechanical Ventilator Oxygen Flow Rate (L/min) Fraction of Inspired Oxygen (FIO2) 11/14/23 15:35 11/14/23 15:45 11/14/23 15:45 Temperature Temperature Source Pulse Rate 102 H 106 H 106 H Respiratory Rate 16 16 16 Respiratory Pattern Normal Blood Pressure 129/72 H 129/72 H Blood Pressure Mean 91 89 Pulse Ox 98 100 100 Oxygen Delivery Method Mechanical Ventilator Oxygen Flow Rate (L/min) Fraction of Inspired Oxygen (FIO2) 100 11/14/23 16:00 11/14/23 16:00 11/14/23 16:15 Temperature Temperature Source Pulse Rate 110 H 109 H Respiratory Rate 16 16 Respiratory Pattern Blood Pressure 133/71 H 133/71 H 129/86 H Blood Pressure Mean 91 88 100 Pulse Ox 100 100 Oxygen Delivery Method Mechanical Ventilator Mechanical Ventilator Oxygen Flow Rate (L/min) Fraction of Inspired Oxygen (FIO2) 11/14/23 16:15 11/14/23 16:24 11/14/23 16:24 Temperature Temperature Source Pulse Rate 107 H 116 H 115 H Respiratory Rate 21 H 16 16 Respiratory Pattern Blood Pressure 129/86 H 146/86 H 146/86 H Blood Pressure Mean 99 106 104 Pulse Ox 100 100 100 Oxygen Delivery Method Mechanical Ventilator Oxygen Flow Rate (L/min) Fraction of Inspired Oxygen (FIO2) 11/14/23 16:30 11/14/23 16:30 11/14/23 16:45 Temperature Temperature Source Pulse Rate 113 H 112 H 112 H Respiratory Rate 16 16 17 Respiratory Pattern Blood Pressure 144/75 H 144/75 H 147/83 H Blood Pressure Mean 98 95 104 Pulse Ox 100 100 100 Oxygen Delivery Method Mechanical Ventilator Mechanical Ventilator Oxygen Flow Rate (L/min) Fraction of Inspired Oxygen (FIO2) 11/14/23 16:45 11/14/23 17:00 11/14/23 17:00 Temperature Temperature Source Pulse Rate 112 H 105 H Respiratory Rate 18 16 Respiratory Pattern Blood Pressure 147/83 H 128/72 H 128/72 H Blood Pressure Mean 100 90 87 Pulse Ox 100 100 Oxygen Delivery Method Mechanical Ventilator Oxygen Flow Rate (L/min) Fraction of Inspired Oxygen (FIO2) 11/14/23 17:15 11/14/23 17:30 11/14/23 17:30 Temperature Temperature Source Pulse Rate 101 H 93 95 Respiratory Rate 22 H 18 16 Respiratory Pattern Blood Pressure 116/70 101/52 L 101/52 L Blood Pressure Mean 84 68 67 Pulse Ox 100 100 100 Oxygen Delivery Method Mechanical Ventilator Oxygen Flow Rate (L/min) Fraction of Inspired Oxygen (FIO2) 11/14/23 17:45 11/14/23 17:48 11/14/23 17:50 Temperature Temperature Source Pulse Rate 90 92 94 Respiratory Rate 17 16 18 Respiratory Pattern Blood Pressure 95/54 L 99/49 L Blood Pressure Mean 67 65 Pulse Ox 100 100 100 Oxygen Delivery Method Oxygen Flow Rate (L/min) Fraction of Inspired Oxygen (FIO2) 85 11/14/23 18:00 11/14/23 18:15 11/14/23 18:30 Temperature Temperature Source Pulse Rate 91 88 Respiratory Rate 19 H 16 Respiratory Pattern Blood Pressure 102/54 L 104/64 100/55 L Blood Pressure Mean 69 77 70 Pulse Ox 100 Oxygen Delivery Method Mechanical Ventilator Oxygen Flow Rate (L/min) Fraction of Inspired Oxygen (FIO2) 11/14/23 19:00 11/14/23 19:30 11/14/23 19:55 Temperature Temperature Source Pulse Rate 69 82 79 Respiratory Rate 15 16 14 Respiratory Pattern Normal Blood Pressure 77/41 L 100/69 Blood Pressure Mean 53 79 Pulse Ox 97 95 100 Oxygen Delivery Method Mechanical Ventilator Mechanical Ventilator Oxygen Flow Rate (L/min) Fraction of Inspired Oxygen (FIO2) 80 11/14/23 20:00 Temperature Temperature Source Pulse Rate 82 Respiratory Rate 14 Respiratory Pattern Blood Pressure 136/67 H Blood Pressure Mean 90 Pulse Ox 100 Oxygen Delivery Method Mechanical Ventilator Oxygen Flow Rate (L/min) Fraction of Inspired Oxygen (FIO2) MDM MDM MDM Narrative Medical decision making narrative: Patient is a 48-year-old male who presented to the emerged department with concern of cardiac arrest. Patient will have a workup performed here on the differential diagnosis includes but limited to ACS, pneumonia, hypoxic respiratory failure, seizure, UTI. Once workup is obtained reviewed he will be reevaluated. Patient was given IV fluids. After the patient arrived he was sitting up in bed and was choking on the eye gel that was placed by EMS prior to arrival once again this was removed. Patient was being evaluated here and after my initial evaluation developed a seizure that lasted approximately 30 seconds and resolved without any medications given. I had further discussion with the family members and the patient was following commands for them therefore it was decided to electively watch the patient. The patient was vomiting and had vomited earlier so there was concern for aspiration pneumonia. The patient then later on had a episode of ventricular tachycardia with a pulse therefore he was given 150 mg of amiodarone. The patient then shortly after this went back into pulseless V. tach therefore he was given another 150 mg of amiodarone. At that point time there was decided to electively intubate the patient patient was intubated and sedated. The patient had a few more rounds of ventricular tachycardia for which she underwent second has cardioversion and had CPR performed. See CODE BLUE sheet for further details. After multiple discussions with the family members was decided that the patient will be made DNR CCA okay to intubate. Patient was started on IV antibiotics vancomycin and Zosyn and cultures were obtained. Patient's CBC was significant for leukocytosis 12,000, hemoglobin was 9.4, platelet count of 604. Patient's INR was 1.3, PT of 16.2. Patient's sodium normal 139, he was noted to be hypokalemic at 139 with a potassium of 2.6 he was given 40 mill equivalents of IV potassium replacement, creatinine was normal at 0.94. Patient's lactic acid was elevated 10.8 after this he was given 3 A of sodium bicarbonate and a sodium bicarb and drip was ordered, AST and ALT were 153 and 76 respectively. Patient's troponin normal at 69 with a delta troponin obtained at 801. Patient's proBNP elevated 760. Patient's TSH normal at 2.6, urinalysis did not reveal any evidence of infection this was sent for culture. Patient's EKG were reviewed and showed sinus tachycardia which later on in the stay on reevaluation the patient at 1 point time his monitor revealed a change in rhythm therefore repeat EKG was performed and likely showed bigeminy with wandering baseline no concern for STEMI. Patient's first blood gas after intubation was obtained and reviewed which showed a pH of 7.42 with a CO2 of 32 and a O2 sat of 100%. At that point time we decreased the respiratory rate. Patient's repeat lactic acid was noted to be 3.1. Patient had a another ABG repeated after ventilator changes noted he was noted be alkalotic with a pH 7.52 a CO2 of 31 and a saturation of 100%. We then once again decreased the patient's respiratory rate further however he was breathing over the vent on reevaluation of the patient. And then a third arterial blood gas was obtained and showed a pH 7.47 with a CO2 of 33 and a O2 sat of 80%. Patient's bicarbonate drip was never started ultimately therefore this order was discontinued as he was noted be alkalotic anyhow. Patient's chest x-ray was reviewed and showed suggestive of vascular congestion mild CHF with a focal infiltrate in the right lower lobe with blunting of the right costophrenic angle posteriorly. Patient's chest x-ray status post intubation showed the ET tube 2.8 cm proximal to the reyna the orogastric tube seen below the left hemidiaphragm pulmonary edema noted. We did back off on the patient's IV fluids as he is noted to become volume overloaded on his chest x-ray. The patient's needed central line for IV access therefore this was placed and a repeat chest x-ray was performed which showed the right internal jugular venous tip overlying the SVC. No bilateral pulmonary opacities and atelectasis with pleural effusions noted. Did call and discussed case with the [facility] transfer team who states that they would get in contact with the fish processor. After a few hours of waiting ultimately patient was accepted to [facility] for further evaluation management. After acceptance we further had to have a delay in care as the bed was not clean. Critical care time 80 minutes Lab Data Labs: Laboratory Results - last 24 hr 11/14/23 11/14/23 11/14/23 13:31 14:46 16:41 WBC 12.8 H RBC 3.27 L Hgb 9.4 L Hct 32.1 L MCV 98.2 H MCH 28.7 MCHC 29.3 L RDW Std Deviation 66.3 H RDW Coeff of Hermila 18.1 H Plt Count 604 H MPV 9.5 Immature Gran % (Auto) 1.200 H Neut % (Auto) 64.3 Lymph % (Auto) 27.3 Pinal % (Auto) 5.5 Eos % (Auto) 1.2 Baso % (Auto) 0.5 Absolute Neuts (auto) 8.3 H Absolute Lymphs (auto) 3.50 Nucleated RBC % 0.2 Anisocytosis 1+ PT 16.2 H INR 1.3 APTT 28.9 Sodium 139 Potassium 2.6 L* Chloride 102 Carbon Dioxide 19.0 L Anion Gap 18 H BUN 11 Creatinine 0.94 Estim Creat Clear Calc 112.27 Est GFR (MDRD) Af Amer 110 Est GFR (MDRD) Non-Af 91 BUN/Creatinine Ratio 11.7 Glucose 248 H Lactic Acid 10.8 H* 3.2 H* Calcium 7.9 L Magnesium 1.6 Total Bilirubin 0.80 Direct Bilirubin 0.48 H AST 153 H ALT 76 H Alkaline Phosphatase 125 H Total Creatine Kinase 117 Troponin I High Sens 69 801 H* B-Natriuretic Peptide 760.9 H Total Protein 7.7 Albumin 1.6 L Globulin 6.1 H Triglycerides 159 TSH 2.600 Urine Color Yellow Urine Clarity Sl. Cloudy Urine pH 6.5 Ur Specific Patrick 1.015 Urine Protein 500 H Urine Glucose (UA) 50 H Urine Ketones Negative Urine Occult Blood 250 H Urine Nitrite Negative Urine Bilirubin Negative Urine Urobilinogen Normal Ur Leukocyte Esterase 25 H Urine RBC 10-25 SEEN Urine WBC 10-25 SEEN Ur Squamous Epith Cells 0 SEEN Ur Renal Epithelial Cell 5-10 SEEN Urine Bacteria RARE WBC Casts 0-5 SEEN Urine Mucus 0 SEEN ABG Data ABG results: ABG 11/14/23 11/14/23 11/14/23 14:56 17:48 20:22 Specimen Type ART ART ART Sample Site L Brach R Radial R Radial pH 7.42 7.52 H 7.47 H Bicarbonate Actual 30.5 H 29.6 H 31.2 H Total CO2 32 31 33 Base Excess 6 H 7 H 8 H O2 Saturation 89 L 100 H 100 H O2 % 100.0 100.0 80.0 ABG pCO2 47.2 H 36.2 42.8 ABG pO2 56 L 271 H 244 H Ronak Test Positive Positive Respiration Rate 18 16 14 O2 Delivery Device Adult Vent Adult Vent ET Tube Vent Mode AC AC AC Tidal Volume 500.0 500.0 500.0 POC PEEP 8 10 8 Radiography Diagnostic Testing: Clinical Impression(s) from Imaging Studies Brain CT 11/14/23 13:23 IMPRESSION: Normal unenhanced CT scan of the brain. Electronically Signed: Jason Dangelo MD at 14:10 EDT , Chest X-Ray 11/14/23 13:57 IMPRESSION: Findings suggest vascular congestion and mild CHF with focal infiltrate in the right lower lobe with blunting of the right costal phrenic angle posteriorly. Electronically Signed: Jason Dangelo MD at 14:11 EDT , Chest X-Ray 11/14/23 14:34 IMPRESSION: The endotracheal tube is at 2.8 cm proximal to the reyna. The orogastric tube is seen below the left hemidiaphragm. Pulmonary edema. Electronically Signed: Jason Dangelo MD at 14:54 EDT , Chest X-Ray 11/14/23 19:45 IMPRESSION: 1. Bibasilar pulmonary opacities which may be atelectasis or pneumonia and likely bilateral pleural effusions. Overall worsened compared to the prior examination. 2. Tubes and lines as above. Electronically Signed: Todd Proctor DO at 20:19 EDT , Discharge Plan Triage Chief Complaint: CPR ED Provider: Fercho Ramirez Dx/Rx/DC Orders Clinical Impression: Acute hypoxemic respiratory failure, Acidosis, lactic, Acute hypokalemia, Pneumonia, Seizure, Ventricular tachycardia, Cardiac arrest, Myocardial infarction type 2 Prescriptions: No Action metformin 1,000 mg tablet 1,000 mg PO BID fluoxetine 40 mg capsule 40 mg PO DAILY Patient Comments: PT TAKES 20MG WITH 40MG TO EQUAL TOTAL DOSE OF 60MG glimepiride 4 mg tablet 4 mg PO BID lisinopril 5 mg tablet 5 mg PO QHS meloxicam 15 mg tablet 15 mg PO DAILY PRN (Reason: pain) omeprazole 20 mg capsule,delayed release(DR/EC) 20 mg PO DAILY insulin glargine 100 unit/mL (3 mL) insulin pen 40 unit subcut QHS cyclobenzaprine 10 mg tablet 10 mg PO TID gabapentin 300 mg capsule 300 mg PO QHS insulin lispro [Humalog KwikPen Insulin] 100 unit/mL insulin pen 10 unit subcut TID rosuvastatin 5 mg tablet 5 mg PO DAILY Jardiance 25 mg tablet 25 mg PO DAILY fluoxetine 20 mg capsule 20 mg PO DAILY Patient Comments: PT TAKES 20MG WITH 40MG TO EQUAL TOTAL DOSE OF 60MG ketorolac 10 mg tablet 10 mg PO TID Cefazolin 2 GM 0.9% Normal Saline (100mL Bag) 100 ML 150 mls/hr IV Q8 Ordered By: Milton Pineda MD Last Taken: Unknown Primary Care Provider: Catarino Sanchez Referrals: Catarino Sanchez MD [Primary Care Provider] - Print Language: [place]
--- NOTE | 2023-11-14 16:48 | EKG12_ITS ---
Test Reason : REPEAT Blood Pressure : / mmHG Vent. Rate : 121 BPM Atrial Rate : 121 BPM P-R Int : 160 ms QRS Dur : 076 ms QT Int : 252 ms P-R-T Axes : 051 032 -42 degrees QTc Int : 357 ms Critical Test Result: STEMI Sinus tachycardia Nonspecific ST T changes Poor Tracing Baseline artifact Abnormal ECG When compared with ECG of 14-NOV-2023 14:47, MANUAL COMPARISON REQUIRED, DATA IS UNCONFIRMED Confirmed by Jason Perry ([id number]), manuscript editor ROYER DURAN ([id number]) on 11/19/2023 8:36:43 AM Referred By: TONY Confirmed By:Jason Perry
[2023-11-14 17:15] LABS: CPK Total, Creatine Kinase 117 U/L (39-308); Triglycerides 159 mg/dL
[2023-11-14 17:22] LABS: Troponin-I HS 801 pg/mL (3.0-78.0)
[2023-11-14 17:38] LABS: Reflex Lactate? Y
[2023-11-14 17:50] LABS: Lactic Acid 3.2 mmol/L (0.4-1.9)
[2023-11-14 17:52] LABS: Allen Test Positive; Base Excess 7 mmol/L (-2 to +2); Bicarbonate 29.6 mmol/L (22-26); Blood Gas Specimen Type ART; Mode AC; O2 Delivery Device Adult Vent; PEEP 10; PO2 271 mmHG (75-100); RR 16; SITE R Radial; SO2 100 % (95-99); Total Carbon Dioxide 31 mmol/L; pCO2 36.2 mmHg (35-45); pH 7.52 (7.35-7.45)
--- NOTE | 2023-11-14 18:03 | ED.RN ---
Myself, Yessica Coreas and Yessica Ortega were approached by patient's inlaws. They had concerns after talking to their daughter about the cost of the lifeflight to get patient to [facility]. It was explained to them that he would not be able to go by the ambulance that took him to [facility] the first time due to the patient being a post arrest on a ventilator with multiple drips. It was explained that he would have to go mobile ICU and it would also cost a lot of money, if not the same amount of flying would cost. They expressed that they didn't feel like the patient would make it to [facility] and it would bankrupt their daughter. He said that they wanted him to stay here or go to hospice care. They stated that they had spoken to their daughter and that was her wish as well. They felt like he would not have a good quality of life. Dr Ramirez came over to talk to the family and he made the comment that they were putting him in an ethical dilemma. They were asking him to compassionately extubate the patient because of money. He informed them that he would not be making that decision when he is actually stable at this point. After that conversation in the hallway, the conversation was moved into the room due to business of the department. When we walked into the room, the patient's eyes were open and he was squeezing his mom and 's hands. Dr Ramirez explained again that we tried to keep the patient here, and were not able to. I explained that there is no press supervisor on the rest of this week. I also explained that he is too sick to stay and not sick enough to go to hospice. The parents were upset and said that they felt it was not right that we couldn't keep him here with all of them close, and that the wasn't allowed to make the decision to make him hospice. Dr Ramirez explained again that it is an ethical dilemma, and he would not be making that decision with how he is doing at this point. The once again stated I love my and would do anything for him, but how am I going to afford this?. I explained to her that there are different programs to help people out and to ask for a executive secretary social welfare when she is there. I also told her to talk to the executive secretary social welfare from here to get the information for financial help for here. Susan is gone for the day. Family all expressed that they understood. Patient is still being transferred to [facility] and will be going by [facility].
[2023-11-14] MEDS: fentaNYL drip 100 ML 10 MCG CONT INF (18:21)
[2023-11-14] MEDS: Piperacil/Tazobactam 3.375 GM in 0.9% Normal Saline (50mL MB+) 50 ML IV (19:21)
[2023-11-14] MEDS: Vancomycin HCl 1,500 MG in 0.9% Normal Saline (500mL Bag) 500 ML 250 MG IV (19:30)
--- NOTE | 2023-11-14 19:45 | RAD_ITS ---
EXAM: XR CHEST, 1 VIEW CLINICAL INDICATION: s/p cental line TECHNIQUE: Frontal view of the chest. COMPARISON: 11/14/2023 FINDINGS: LUNGS AND PLEURAL SPACES: Bibasilar pulmonary opacities which may be atelectasis or pneumonia and likely bilateral pleural effusions. Overall worsened compared to the prior examination. No pneumothorax. HEART: No significant abnormality. Cardiac silhouette not enlarged. MEDIASTINUM: Central airways and mediastinal contour are unremarkable. BONES/JOINTS: No significant abnormality. No acute fracture. SOFT TISSUES: No significant abnormality. TUBES, LINES AND DEVICES: Right upper extremity PICC and right internal jugular venous catheter is with tips overlying the SVC. The endotracheal tube (ETT) is in satisfactory position. Enteric tube extends below the level of the GE junction. RAD/Chest 1 View (Portable) IMPRESSION: 1. Bibasilar pulmonary opacities which may be atelectasis or pneumonia and likely bilateral pleural effusions. Overall worsened compared to the prior examination. 2. Tubes and lines as above. Electronically Signed: Todd Proctor DO at 20:19 EDT ,
[2023-11-14 20:26] LABS: Allen Test Positive; Base Excess 8 mmol/L (-2 to +2); Bicarbonate 31.2 mmol/L (22-26); Blood Gas Specimen Type ART; Mode AC; O2 Delivery Device ET Tube; PEEP 8; PO2 244 mmHG (75-100); RR 14; SITE R Radial; SO2 100 % (95-99); Total Carbon Dioxide 33 mmol/L; pCO2 42.8 mmHg (35-45); pH 7.47 (7.35-7.45)
[2023-11-14 20:55] LABS: Reflex Lactate? Y
[2023-11-14 22:12] LABS: Bedside Glucose 224 mg/dL (74-106)
== END 2023-11-14 22:23 | disposition short-term general hospital (02) ==
PROVIDERS: Emergency Provider Emergency Medicine; PCP Family Medicine; Visit Provider Emergency Medicine
DX: J96.01 Acute respiratory failure with hypoxia (principal); I46.9 Cardiac arrest, cause unspecified; I47.20 Ventricular tachycardia, unspecified; I21.A1 Myocardial infarction type 2; R56.9 Unspecified convulsions; E11.9 Type 2 diabetes mellitus without complications; Z79.4 Long term (current) use of insulin; J18.9 Pneumonia, unspecified organism; E87.20 Acidosis, unspecified; I10 Essential (primary) hypertension; E87.6 Hypokalemia; F32.A Depression, unspecified; Z79.899 Other long term (current) drug therapy; Z79.84 Long term (current) use of oral hypoglycemic drugs; Z79.01 Long term (current) use of anticoagulants; K21.9 Gastro-esophageal reflux disease without esophagitis
CPT/HCPCS: 31500; 36556; 36592; 36600; 70450; 71045; 71046; 74177; 80048; 80076; 81001; 82550; 82803; 82962; 83605; 83735; 83880; 84443; 84478; 84484; 85025; 85610; 85730; 87086; 92950; 93005; 94002; 96361; 96365; 96366; 96367; 96368; 96375; 96376; 99285; J7030; J7040; Q9967; A4216; C1751; J0295; J0612

== ENCOUNTER → 2024-02-25 | Outpatient (CLI) | payer BC, SELFPAY ==
[2024-02-25 17:59] LABS: Absolute Neutrophil Count 4.7 X10^3/uL (2.0-7.7); Basophil# 0.05 X10^3/uL; Basophil% 0.7 % (0-1); Eosinophil# 0.44 X10^3/uL; Eosinophils% 6.5 % (0-5); Hematocrit 40.2 % (40-54); Hemoglobin 12.5 g/dL (13.0-16.5); Lymphocyte % 16.2 % (19-41); Mean Corp Hgb Conc 31.1 g/dL (32-36); Mean Corpuscular Volume 93.3 fL (80-94); Mean Platelet Vol. 10.8 fl (6.2-12.0); Monocyte# 0.45 X10^3/uL; Monocyte% 6.6 % (0-10); NRBC Flagged by Analyzer 0 % (0-5); Neutrophil # 4.73 X10^3/uL (2.7-7.7); Neutrophil % 69.7 % (47-70); Platelet Count 353 K/mm3 (150-450); RBC Distribution Width CV 13.2 % (11.6-14.6); RBC Distribution Width SD 45.2 fl (35.1-43.9); Red Blood Count 4.31 M/mm3 (4.6-6.2); White Blood Count 6.8 K/mm3 (4.4-11.0)
[2024-02-25 19:02] LABS: ALB/GLOB Ratio 0.7 RATIO (0.9-2.4); AST(SGOT) 20 U/L (15-37); Alanine Aminotransfer ALT/SGPT 29 U/L (16-61); Albumin, Serum 3.7 g/dL (3.2-5.0); Alkaline Phosphatase 99 U/L (45-117); Anion Gap 6 (5-15); BUN 34 mg/dL (7-18); BUN/Creat Ratio 26.6 RATIO (10-20); Calcium,Total 9.8 mg/dL (8.5-10.1); Chloride 100 mmol/L (98-107); Creatinine, Serum 1.28 mg/dL (0.70-1.30); EST Glomerular Filtration Rate 64 mL/min (>60); Est Glom Filt Rate - Afr Amer 77 mL/min (>60); Globulin 5.5 g/dL (2.2-4.2); Glucose 163 mg/dL (74-106); Potassium 5.9 mmol/L (3.5-5.1); Protein, Total 9.2 g/dL (6.4-8.2); Sodium Level 132 mmol/L (136-145)
== END | disposition home or self-care (01) ==
LOC: MFPLAB 16:32
PROVIDERS: PCP Family Medicine; Referring Provider Family Medicine; Visit Provider Family Medicine
DX: H83.09 Labyrinthitis, unspecified ear (principal); R11.0 Nausea
CPT/HCPCS: 36415; 80053; 85025

== ENCOUNTER → 2024-02-27 | Outpatient (CLI) | payer BC, SELFPAY ==
[2024-02-27 15:52] LABS: Hemoglobin A1c 7.3 % (3.8-5.6)
[2024-02-27 16:01] LABS: Anion Gap 9 (5-15); BUN 26 mg/dL (7-18); BUN/Creat Ratio 20.3 RATIO (10-20); Calcium,Total 9.8 mg/dL (8.5-10.1); Chloride 102 mmol/L (98-107); Cholesterol 123 mg/dL (200); Creatinine, Serum 1.28 mg/dL (0.70-1.30); EST Glomerular Filtration Rate 64 mL/min (>60); Est Glom Filt Rate - Afr Amer 77 mL/min (>60); Glucose 185 mg/dL (74-106); High Density Lipoprotein 35 mg/dL; Magnesium 3.2 mg/dL (1.6-2.6); Potassium 5.9 mmol/L (3.5-5.1); Sodium Level 133 mmol/L (136-145); Triglycerides 197 mg/dL; Very Low Density Lipoprotein 39 mg/dL (5-40)
== END | disposition home or self-care (01) ==
LOC: MFPLAB 11:30
PROVIDERS: PCP Family Medicine; Visit Provider Family Medicine
DX: E87.5 Hyperkalemia (principal); E11.9 Type 2 diabetes mellitus without complications
CPT/HCPCS: 36415; 80048; 80061; 83036; 83735

== ENCOUNTER → 2024-03-12 | Outpatient (CLI) | payer BC, SELFPAY ==
[2024-03-12 12:49] LABS: Anion Gap 8 (5-15); BUN 20 mg/dL (7-18); BUN/Creat Ratio 18.2 RATIO (10-20); Calcium,Total 9.2 mg/dL (8.5-10.1); Chloride 103 mmol/L (98-107); EST Glomerular Filtration Rate 76 mL/min (>60); Est Glom Filt Rate - Afr Amer 92 mL/min (>60); Glucose 347 mg/dL (74-106); Potassium 4.1 mmol/L (3.5-5.1); Sodium Level 136 mmol/L (136-145)
== END | disposition home or self-care (01) ==
LOC: MFPLAB 10:58
PROVIDERS: PCP Family Medicine; Referring Provider Family Medicine; Visit Provider Family Medicine
DX: I10 Essential (primary) hypertension (principal); E83.40 Disorders of magnesium metabolism, unspecified
CPT/HCPCS: 36415; 80048; 83735

== ENCOUNTER → 2024-05-29 | Outpatient (CLI) | payer BC, SELFPAY ==
[2024-05-29 12:50] LABS: ALB/GLOB Ratio 1.2 RATIO (0.9-2.4); AST(SGOT) 23 U/L (<=37); Alanine Aminotransfer ALT/SGPT 22 U/L (<=46); Albumin, Serum 4.3 g/dL (3.5-5.0); Alkaline Phosphatase 97 U/L (40-129); Anion Gap 12 (5-15); BUN 19 mg/dL (4-19); BUN/Creat Ratio 19.4 RATIO (10-20); Calcium,Total 9.7 mg/dL (7.6-11.0); Carbon Dioxide 24.1 mmol/L (21.0-32.0); Chloride 102 mmol/L (98-108); Creatinine, Serum 0.97 mg/dL (0.70-1.20); EST Glomerular Filtration Rate 97 (>60); Globulin 3.8 g/dL (2.2-4.2); Glucose 174 mg/dL (70-99); Potassium 5.2 mmol/L (3.3-5.1); Protein, Total 8.1 g/dL (5.9-8.4); Sodium Level 138 mmol/L (133-145); Total Bilirubin 0.32 mg/dL (0.00-1.30)
[2024-05-29 13:29] LABS: Cholesterol 156 mg/dL (<=200); High Density Lipoprotein 57 mg/dL; Low Density Lipoprotein Calc. 75 mg/dL; Triglycerides 121 mg/dL; Very Low Density Lipoprotein 24 mg/dL (5-40); cholesterol:hdl ratio screen 2.72
[2024-05-29 14:24] LABS: Microalbumin,Random Urine < 12.0 mg/L (NO RANGE EST.); Microalbumin:Creatinine Ratio UNABLE TO CALCULATE mg/g CRE
== END | disposition home or self-care (01) ==
LOC: MFPLAB 10:12
PROVIDERS: PCP Family Medicine; Referring Provider Family Medicine; Visit Provider Family Medicine
DX: E11.9 Type 2 diabetes mellitus without complications (principal)
CPT/HCPCS: 36415; 80053; 80061; 82043; 82570

== ENCOUNTER → 2024-08-14 | Outpatient (CLI) | payer BC, SELFPAY ==
[2024-08-14 16:32] LABS: Anion Gap 12 (5-15); BUN 30 mg/dL (4-19); BUN/Creat Ratio 26.9 RATIO (10-20); Calcium,Total 9.1 mg/dL (7.6-11.0); Carbon Dioxide 23.7 mmol/L (21.0-32.0); Chloride 103 mmol/L (98-108); Cholesterol 125 mg/dL (<=200); Creatinine, Serum 1.11 mg/dL (0.70-1.20); EST Glomerular Filtration Rate 82 (>60); Glucose 185 mg/dL (70-99); High Density Lipoprotein 44 mg/dL; Low Density Lipoprotein Calc. 64 mg/dL; Potassium 4.7 mmol/L (3.3-5.1); Sodium Level 138 mmol/L (133-145); Triglycerides 86 mg/dL; Very Low Density Lipoprotein 17 mg/dL (5-40); cholesterol:hdl ratio screen 2.83
[2024-08-14 18:19] LABS: Microalbumin,Random Urine < 12.0 mg/L (NO RANGE EST.); Microalbumin:Creatinine Ratio UNABLE TO CALCULATE mg/g CRE
== END | disposition home or self-care (01) ==
LOC: MFPLAB 11:45
PROVIDERS: PCP Family Medicine; Referring Provider Family Medicine; Visit Provider Family Medicine
DX: R63.5 Abnormal weight gain (principal); E11.9 Type 2 diabetes mellitus without complications
CPT/HCPCS: 36415; 80048; 80061; 82043; 82570; 84443

== ENCOUNTER → 2024-11-13 | Outpatient (CLI) | payer OTHER, SELFPAY ==
--- NOTE | 2024-11-13 16:32 | RAD_ITS ---
PROCEDURE: FOOT MIN 3 VIEWS 11/13/2024 REASON FOR EXAM: FOOT PAIN TECHNIQUE: FOOT MIN 3 VIEWS COMPARISON: Left foot, 09/01/2021. FINDINGS: There has been interval development of severe arthropathy of the intertarsal and tarsometatarsal joints, consistent with diabetic arthropathy. There is no evidence of fracture or dislocation. There is a large plantar spur. There are vascular calcifications. RAD/Foot min 3 Views IMPRESSION: Interval development of severe arthropathy in the mid and hindfoot as described . Reading Location: [id number]
== END | disposition home or self-care (01) ==
LOC: MTRAD 16:30
PROVIDERS: PCP Family Medicine; Referring Provider Family Medicine; Visit Provider Family Medicine
DX: M79.672 Pain in left foot (principal)
CPT/HCPCS: 73630

== ENCOUNTER → 2025-01-05 | Outpatient (CLI) | payer OTHER, SELFPAY ==
[2025-01-05 15:50] LABS: AST(SGOT) 22 U/L (<=37); Alanine Aminotransfer ALT/SGPT 26 U/L (<=46); Albumin, Serum 4.3 g/dL (3.5-5.0); Alkaline Phosphatase 102 U/L (40-129); Anion Gap 12 (5-15); BUN 19 mg/dL (4-19); BUN/Creat Ratio 17.1 RATIO (10-20); Calcium,Total 9.2 mg/dL (7.6-11.0); Carbon Dioxide 23.0 mmol/L (21.0-32.0); Chloride 105 mmol/L (98-108); Globulin 3.5 g/dL (2.2-4.2); Glucose 101 mg/dL (70-99); Magnesium 2.1 mg/dL (1.5-2.2); Potassium 4.5 mmol/L (3.3-5.1)
== END | disposition home or self-care (01) ==
LOC: MFPLAB 12:04
PROVIDERS: PCP Family Medicine; Visit Provider Family Medicine
DX: E83.40 Disorders of magnesium metabolism, unspecified (principal)
CPT/HCPCS: 36415; 80053; 83735